=== PATIENT | male | born 1965 | race American Indian/Alaskan Native ===

== ENCOUNTER 2017-06-11 11:26 | Emergency (ER) | payer OTHER ==
[2017-06-11 11:26] VITALS: BMI 26.4
[2017-06-11 12:12] VITALS: O2SAT 98
[2017-06-11 12:13] LABS: BASO # 0.03 K/mm3 (0.0-2.0); BASO % 0.4 % (0.0-3.0); EOS # 0.1 (0.0-0.7); EOS % 1.2 % (1.5-5.0); GRAN # 6.06 (1.4-6.5); GRAN % 75.6 % (50.0-68.0); LYMPH # 1.2 (1.2-3.4); LYMPH % 14.9 % (22.0-35.0); MEAN CELL VOLUME 87.9 fl (80.0-105.0); MEAN CORPUSCULAR HEMOGLOBIN 27.9 pg (25.0-35.0); MEAN CORPUSCULAR HGB CONC 31.8 g/dl (31.0-37.0); MONO # 0.6 (0.1-0.6); MONO % 7.9 % (1.0-6.0); RED CELL DISTRIBUTION WIDTH 14.2 % (11.5-14.5)
--- NOTE | 2017-06-11 12:21 | ED PDOC ---
Arrival/HPI - General Chief Complaint: Abnormal Labs Time Seen by Provider: 06/11/17 11:48 Historian: Patient - History of Present Illness Narrative History of Present Illness (Text): 06/11/17 12:17 A 52 year old male, whose past medical history includes diabetes and renal disease, presents to the emergency department after receiving a call from his PMD advising him to come into the emergency department for low blood levels. The patient states that he has been feeling short of breath and lightheaded. The patient denies fevers, chills, chest pain, cough, abdominal pain, nausea, vomiting, diarrhea, back pain, neck pain, urinary/bowel changes, or any other complaint. PMD: Dr. Young Robotype Operator: Dr. Garza Time/Duration: Other (Today) Symptom Onset: Sudden Symptom Course: Unchanged Activities at Onset: Rest, Light Context: Home Past Medical History - Infectious Disease Hx of Infectious Diseases: None - Cardiac Hx Hypertension: Yes - Pulmonary Hx Respiratory Disorders: No Hx Asthma: No Hx Bronchitis: No Hx Chronic Obstructive Pulmonary Disease (COPD): No Hx Emphysema: No Hx Pneumonia: No Hx Respiratory Aspiration: No Hx Respiratory Tract Infection: No Hx Sleep Apnea: No Hx Tuberculosis: No - Neurological Hx Neurological Disorder: No Hx Alzheimer's Disease: No HX Cerebrovascular Accident: No Hx Dementia: No Hx Dizziness: No Hx Meningitis: No Hx Migraine: No Hx Parkinson's Disease: No Hx Seizures: No Hx Transient Ischemic Attacks (TIA): No - HEENT Hx HEENT Disorder: No Hx Blind: No Hx Cataracts: No Hx Deafness: No Hx Difficulty Chewing: No Hx Epistaxis: No Hx Glaucoma: No Hx Macular Degeneration: No - Renal Hx Renal Disorder: No Hx Dialysis: No Hx Kidney Stones: No Hx Neurogenic Bladder: No Hx Pyelonephritis: No Hx Renal Cancer: No Hx Renal Failure: No - Endocrine/Metabolic Hx Diabetes Mellitus Type 1: Yes - Hematological/Oncological Hx Blood Disorders: No Hx AIDS: No Hx Anemia: No Hx Cancer: No Hx Chemotherapy: No Hx Cirrhosis: No Hx Hemophilia: No Hx Hepatitis A: No Hx Hepatitis B: No Hx Hepatitis C: No Hx Metastasis: No Hx Shingles: No Hx Sickle Cell Disease: No Hx Unexplained Bleeding: No - Integumentary Hx Dermatological Disorder: No Hx Basal Cell Carcinoma: No Hx Eczema: No Hx Melanoma: No Hx Psoriasis: No Hx Squamous Cell Carcinoma: No - Musculoskeletal/Rheumatological Hx Musculoskeletal Disorders: No Hx Arthritis: No Hx Back Pain: No Hx Degenerative Joint Disease: No Hx Falls: No Hx Fractures: No Hx Gout: No Hx Herniated Disk: No Hx Myasthenia Gravis: No Hx Osteoarthritis: No Hx Osteomyelitis: No Hx Osteoporosis: No Hx Rhabdomyolysis: No Hx Spinal Stenosis: No Hx Unsteady Gait: No - Gastrointestinal Hx Gastrointestinal Disorders: No Hx Colostomy: No Hx Crohn's Disease: No Hx Diverticulitis: No Hx Gall Bladder Disease: No Hx Gastroesophageal Reflux: No Hx Gastrointestinal Ulcer: No Hx Ileostomy: No Hx Liver Failure: No Hx Pancreatitis: No HX Swallowing Problems: No - Genitourinary/Gynecological Hx Genitourinary Disorders: No Hx Hematuria: No Hx Incontinence: No Hx Prostate Problems: No Hx Sexually Transmitted Diseases: No Hx Urinary Tract Infection: No - Psychiatric Hx Substance Use: No - Surgical History Hx Cardiac Catheterization: No Hx Coronary Stent: No Family/Social History Family/Social History: No Known Family HX Smoking Status: Never Smoked Hx Alcohol Use: No Hx Substance Use: No Allergies/Home Meds Allergies/Adverse Reactions: Allergies No Known Allergies Allergy (Verified 05/29/17 03:19) Review of Systems - Physician Review All systems were reviewed & negative as marked: Yes - Review of Systems Constitutional: absent: Fevers Gastrointestinal: absent: Hematochezia Physical Exam - Physical Exam Narrative Physical Exam (Text): 06/11/17 12:24 Constitutional: No acute distress. Head: Normocephalic. Atraumatic. Eyes: PERRL. ENT: Moist mucous membranes. Neck: Supple. Cardiovascular: Regular rate. Chest: No tenderness. Respiratory: Clear to auscultation bilaterally. GI: Soft. Nontender. Nondistended. Back: No CVA tenderness. Musculoskeletal: No tenderness or swelling of extremities. Skin: No rash. Neurologic: Alert, no focal deficit. Vital Signs Reviewed: Yes Vital Signs Temp Pulse Resp BP Pulse Ox 06/11/17 14:43 98.4 F 87 17 155/77 H 06/11/17 14:28 98.5 F 76 18 147/71 06/11/17 13:05 69 18 122/68 98 06/11/17 12:12 98.4 F 75 18 124/71 98 06/11/17 11:38 98.8 F 80 16 124/71 100 Temperature: Afebrile Blood Pressure: Normal Pulse: Regular Respiratory Rate: Normal Appearance: Positive for: Well-Appearing, Non-Toxic, Comfortable Pain Distress: None Mental Status: Positive for: Alert and Oriented X 3 Finger Stick Blood Glucose: 159 Medical Decision Making ED Course and Treatment: 06/11/17 12:24 Impression: A 52 year old male presents to the emergency department after being advised by PMD for low blood levels. Plan: -- EKG -- Labs -- Reassess and disposition Progress Notes: 06/11/17 12:28: Patient consented for blood transfusion. EKG: Ordered, reviewed, and independently interpreted the EKG. Rate : 78 BPM Rhythm : NSR Interpretation : No ST-T wave changes. 06/11/17 15:28 Dr. Young via phone states patient only requires blood transfusion and he will work patient up further as outpatient. Dr. Garza called, agrees with plan. Blood transfusion 2 units in ED, then discharge. - Lab Interpretations Lab Results: 06/11/17 12:00 06/11/17 12:00 Lab Results 06/11/17 15:21: POC Glucose (mg/dL) 139 H 06/11/17 12:48: Blood Type Confirm O POSITIVE 06/11/17 12:36: Blood Type O POSITIVE, Antibody Screen Negative, Crossmatch See Detail, BBK History Checked No verified bt 06/11/17 12:00: Sodium 140, Potassium 4.6, Chloride 104, Carbon Dioxide 24, Anion Gap 17, BUN 42 H, Creatinine 4.4 H, Est GFR ( Amer) 17, Est GFR ( Non-Af Amer) 14, Random Glucose 174 H, Calcium 9.7, Total Bilirubin 0.7, AST 25 , ALT 32, Alkaline Phosphatase 61, Total Protein 7.2, Albumin 4.1, Globulin 3.1 , Albumin/Globulin Ratio 1.3 06/11/17 12:00: WBC 8.0, RBC 2.65 L, Hgb 7.4 L, Hct 23.3 L, MCV 87.9 D, MCH 27.9, MCHC 31.8, RDW 14.2, Plt Count 542 H, MPV 10.0, Gran % 75.6 H, Lymph % ( Auto) 14.9 L, Haskell % (Auto) 7.9 H, Eos % (Auto) 1.2 L, Baso % (Auto) 0.4, Gran # 6.06, Lymph # 1.2, Haskell # 0.6, Eos # 0.1, Baso # 0.03 I have reviewed the lab results: Yes - EKG Interpretation Interpreted by ED Physician: Yes Type: 12 lead EKG - Scribe Statement The provider has reviewed the documentation as recorded by the Scribe Sherrie Claire Provider Scribe Attestation: All medical record entries made by the Scribe were at my direction and personally dictated by me. I have reviewed the chart and agree that the record accurately reflects my personal performance of the history, physical exam, medical decision making, and the department course for this patient. I have also personally directed, reviewed, and agree with the discharge instructions and disposition. Disposition/Present on Arrival - Present on Arrival Any Indicators Present on Arrival: Yes History of DVT/PE: No History of Uncontrolled Diabetes: Yes Urinary Catheter: No History of Decub. Ulcer: No History Surgical Site Infection Following: None - Disposition Have Diagnosis and Disposition been Completed?: Yes Diagnosis: Anemia Disposition: HOME/ ROUTINE Disposition Time: 15:29 Patient Plan: Discharge Patient Problems: Current Active Problems Problem Status Onset Anemia Acute Condition: STABLE Discharge Instructions (ExitCare): Blood Transfusion Reactions (ED) Referrals: Tera Young MD [Primary Care Provider] - Follow up with primary Forms: [employer] (Honduran)
[2017-06-11 12:23] LABS: HEMATOCRIT 23.3 % (42.0-52.0)
[2017-06-11 12:30] LABS: ALB/GLOB RATIO 1.3 (1.1-1.8); BILIRUBIN,TOTAL 0.7 mg/dL (0.2-1.3); CALCIUM 9.7 mg/dL (8.4-10.5); TOTAL PROTEIN 7.2 g/dL (5.8-8.3)
[2017-06-11 13:49] LABS: POTASSIUM 4.6 mmol/L (3.6-5.0)
[2017-06-11 19:09] VITALS: BP 180/90; PULSE 86; RESP 17; TEMP 98.6
--- NOTE | 2017-06-11 23:02 | CARD ---
APPROVED REPORT EKG Measurement Heart [id number] <Conclusion> Normal sinus rhythm Nonspecific ST and T wave abnormality Abnormal ECG
== END 2017-06-11 19:21 | disposition home or self-care (01) ==
LOC: ED 11:26
DX: D64.9 Anemia, unspecified (principal); I10 Essential (primary) hypertension; E11.9 Type 2 diabetes mellitus without complications
CPT/HCPCS: 36430; 80053; 82948; 85025; 86850; 86900; 86920; 93005; 99283; P9016

== ENCOUNTER 2017-07-01 22:39 | Inpatient (IN) | payer OTHER ==
--- NOTE | 2017-07-01 23:07 | ED PDOC ---
Arrival/HPI - General Chief Complaint: Syncope Time Seen by Provider: 07/01/17 22:49 Historian: Patient - History of Present Illness Narrative History of Present Illness (Text): 07/01/17 23:00 Emery Hoang is a 52 year old male, whose past medical history includes diabetes, hypertension, gastroparesis, anemia, and renal insufficiency, who presents to the emergency department complaining of generalized malaise and weakness with associated few episodes vomiting over the past couple of days. According to family, patient experienced 3-4 syncopal episodes. Patient denies any head trauma, neck pain, back pain, chest pain, shortness of breath, abdominal pain, fever, chills, or any other complaints at this time. Time/Duration: < week Symptom Onset: Gradual Symptom Course: Unchanged Severity Level: Mild Activities at Onset: Light Context: Home Past Medical History - Provider Review Nursing Documentation Reviewed: Yes - Infectious Disease Hx of Infectious Diseases: None - Cardiac Hx Hypertension: Yes - Pulmonary Hx Respiratory Disorders: No Hx Asthma: No Hx Bronchitis: No Hx Chronic Obstructive Pulmonary Disease (COPD): No Hx Emphysema: No Hx Pneumonia: No Hx Respiratory Aspiration: No Hx Respiratory Tract Infection: No Hx Sleep Apnea: No Hx Tuberculosis: No - Neurological Hx Neurological Disorder: No Hx Alzheimer's Disease: No HX Cerebrovascular Accident: No Hx Dementia: No Hx Dizziness: No Hx Meningitis: No Hx Migraine: No Hx Parkinson's Disease: No Hx Seizures: No Hx Transient Ischemic Attacks (TIA): No - HEENT Hx HEENT Disorder: No Hx Blind: No Hx Cataracts: No Hx Deafness: No Hx Difficulty Chewing: No Hx Epistaxis: No Hx Glaucoma: No Hx Macular Degeneration: No - Renal Hx Renal Disorder: Yes Hx Dialysis: No Hx Kidney Stones: No Hx Neurogenic Bladder: No Hx Pyelonephritis: No Hx Renal Cancer: No Hx Renal Failure: No - Endocrine/Metabolic Hx Diabetes Mellitus Type 2: Yes - Hematological/Oncological Hx Blood Disorders: No Hx AIDS: No Hx Anemia: No Hx Cancer: No Hx Chemotherapy: No Hx Cirrhosis: No Hx Hemophilia: No Hx Hepatitis A: No Hx Hepatitis B: No Hx Hepatitis C: No Hx Metastasis: No Hx Shingles: No Hx Sickle Cell Disease: No Hx Unexplained Bleeding: No - Integumentary Hx Dermatological Disorder: No Hx Basal Cell Carcinoma: No Hx Eczema: No Hx Melanoma: No Hx Psoriasis: No Hx Squamous Cell Carcinoma: No - Musculoskeletal/Rheumatological Hx Musculoskeletal Disorders: No Hx Arthritis: No Hx Back Pain: No Hx Degenerative Joint Disease: No Hx Falls: No Hx Fractures: No Hx Gout: No Hx Herniated Disk: No Hx Myasthenia Gravis: No Hx Osteoarthritis: No Hx Osteomyelitis: No Hx Osteoporosis: No Hx Rhabdomyolysis: No Hx Spinal Stenosis: No Hx Unsteady Gait: No - Gastrointestinal Hx Gastrointestinal Disorders: No Hx Colostomy: No Hx Crohn's Disease: No Hx Diverticulitis: No Hx Gall Bladder Disease: No Hx Gastroesophageal Reflux: No Hx Gastrointestinal Ulcer: No Hx Ileostomy: No Hx Liver Failure: No Hx Pancreatitis: No HX Swallowing Problems: No - Genitourinary/Gynecological Hx Genitourinary Disorders: No Hx Hematuria: No Hx Incontinence: No Hx Prostate Problems: No Hx Sexually Transmitted Diseases: No Hx Urinary Tract Infection: No - Psychiatric Hx Substance Use: No - Surgical History Hx Cardiac Catheterization: No Hx Coronary Stent: No Family/Social History - Physician Review Nursing Documentation Reviewed: Yes Family/Social History: No Known Family HX Smoking Status: Never Smoked Hx Alcohol Use: No Hx Substance Use: No Allergies/Home Meds Allergies/Adverse Reactions: Allergies No Known Allergies Allergy (Verified 07/01/17 22:54) Review of Systems - Review of Systems Constitutional: Other (generalized malaise and weakness) Eyes: absent: Vision Changes ENT: absent: Hearing Changes Respiratory: absent: SOB, Cough Cardiovascular: Syncope. absent: Chest Pain Gastrointestinal: Vomiting. absent: Abdominal Pain Genitourinary Male: absent: Dysuria, Frequency Musculoskeletal: absent: Arthralgias, Back Pain Skin: absent: Rash, Pruritis Neurological: absent: Headache, Dizziness Endocrine: absent: Diaphoresis Hemo/Lymphatic: absent: Adenopathy Psychiatric: absent: Anxiety, Depression Physical Exam Vital Signs Reviewed: Yes Vital Signs Temp Pulse Resp BP Pulse Ox 07/02/17 01:09 87 18 133/66 100 07/01/17 22:49 98.1 F 78 20 133/63 100 Temperature: Afebrile Blood Pressure: Normal Pulse: Regular Respiratory Rate: Normal Appearance: Positive for: Well-Appearing, Non-Toxic, Comfortable Pain Distress: None Mental Status: Positive for: Alert and Oriented X 3 - Systems Exam Head: Present: Atraumatic, Normocephalic Pupils: Present: PERRL Extroacular Muscles: Present: EOMI Conjunctiva: Present: Normal Mouth: Present: Moist Mucous Membranes Neck: Present: Normal Range of Motion Respiratory/Chest: Present: Clear to Auscultation, Good Air Exchange. No: Respiratory Distress, Accessory Muscle Use Cardiovascular: Present: Regular Rate and Rhythm, Normal S1, S2. No: Murmurs Abdomen: Present: Normal Bowel Sounds. No: Tenderness, Distention, Peritoneal Signs Back: Present: Normal Inspection Upper Extremity: Present: Normal Inspection. No: Cyanosis, Edema Lower Extremity: Present: Normal Inspection. No: Edema Neurological: Present: GCS=15, CN II-XII Intact, Speech Normal Skin: Present: Warm, Dry, Normal Color. No: Rashes Psychiatric: Present: Alert, Oriented x 3, Normal Insight, Normal Concentration Medical Decision Making ED Course and Treatment: 07/01/17 23:09 Impression: 52 year old male complaining of generalized malaise and weakness with associated episodes of vomiting and reported syncopal episodes by family over the past couple of days. Differential Diagnosis included but are not limited to: Sever anemia secondary to chronic disease, secondary to GI bleed vs. Vasovagal syncope Plan: -- EKG -- Chest X-ray -- Head CT without contrast -- Type and Screen -- Labs -- Pepcid, Zofran, and IV fluids -- Reassess and disposition Prior Visits: Notes and results from previous visits were reviewed. Patient was last seen on 06/11/17 after receiving a call from his PMD advising him to come into the emergency department for low blood levels. Patient was discharged home. Progress Notes: EKG: Ordered, reviewed, and independently interpreted the EKG. Rate: 82 BPM Rhythm: NSR Interpretation: No ST-segment elevations or depressions, no T-wave inversions, normal intervals. Comparison: No previous EKG for comparison. 07/02/17 00:39 Reviewed radiology, chest x-ray shows no acute processes. 07/02/17 00:50 Case discussed with chief medical technologist and Dr. Moore, who is aware and accepts patient to hospitalist service. 07/02/17 01:00 CT Head Without Intravenous Contrast: Creator : Kate Peraza MD FINDINGS: Brain: No hemorrhage. No significant white matter disease. No edema. Ventricles: No hydrocephalus. Bones: Skull is intact. Sinuses: Large mucus cyst versus polyp in the right maxillary sinus. Mastoid air cells: No mastoid effusion. Motion artifact limits evaluation. IMPRESSION: No CT evidence of acute intracranial abnormality. Motion artifact limits evaluation. - Lab Interpretations Lab Results: 07/01/17 23:11 07/01/17 23:11 Lab Results 07/01/17 23:11: Blood Type O POSITIVE, Antibody Screen Negative, Crossmatch See Detail, BBK History Checked Patient has bt 07/01/17 23:11: WBC 8.3, RBC 1.38 L, Hgb 4.0 L* D, Hct 12.6 L*, MCV 91.3 D, MCH 29.0, MCHC 31.7, RDW 14.2, Plt Count 294, MPV 10.1 07/01/17 23:11: Sodium 140, Potassium 4.7, Chloride 108 H, Carbon Dioxide 19 L, Anion Gap 17, BUN 93 H, Creatinine 4.0 H, Est GFR ( Amer) 19, Est GFR ( Non-Af Amer) 16, Random Glucose 218 H, Calcium 9.4, Total Bilirubin 0.2, AST 22 , ALT 25, Alkaline Phosphatase 34 L D, Lactate Dehydrogenase 255 L, Total Creatine Kinase 44, Troponin I 0.03, Total Protein 5.5 L, Albumin 3.2, Globulin 2.3, Albumin/Globulin Ratio 1.4 07/01/17 23:11: PT 12.1, INR 1.11 H, APTT 27.9 I have reviewed the lab results: Yes - RAD Interpretation Radiology Orders: 07/01/17 23:10 HEAD W/O CONTRAST [CT] Stat CHEST PORTABLE [RAD] Stat - Medication Orders Current Medication Orders: Fenofibrate (Tricor) 145 mg PO DAILY [facility] Hydralazine HCl (Apresoline) 10 mg IVP Q6 PRN PRN Reason: Systolic Blood Pressure Sodium Chloride (Sodium Chloride 0.9%) 1,000 mls @ 75 mls/hr IV .[id number] [facility] Insulin Human Lispro (Humalog High) 0 units SC ACHS PAM PRN Reason: Protocol Ondansetron HCl (Zofran Inj) 4 mg IVP Q6H PRN PRN Reason: Nausea/Vomiting Pantoprazole Sodium (Protonix Inj) 40 mg IVP Q12 PAM Discontinued Medications Famotidine (Pepcid) 20 mg IVP STAT STA Stop: 07/01/17 23:11 Last Admin: 07/01/17 23:30 Dose: 20 mg IVP Administration Document 07/01/17 23:30 GMD (Rec: 07/01/17 23:30 GMD [id number]) Charges for Administration # of IVP Administrations 1 Sodium Chloride (Sodium Chloride 0.9%) 1,000 mls @ 999 mls/hr IV .Q1H1M STA Stop: 07/02/17 00:10 Last Admin: 07/01/17 23:30 Dose: 999 mls/hr eMAR Start Stop Document 07/01/17 23:30 GMD (Rec: 07/01/17 23:31 GMD [id number]) Intravenous Solution Start Date 07/01/17 Start Time 23:30 End Date 07/02/17 End time 00:31 Total Infusion Time 61 Ondansetron HCl (Zofran Inj) 4 mg IVP ONCE ONE Stop: 07/01/17 23:11 Last Admin: 07/01/17 23:30 Dose: 4 mg IVP Administration Document 07/01/17 23:30 GMD (Rec: 07/01/17 23:30 GMD [facility] [id number]) Charges for Administration # of IVP Administrations 1 - Scribe Statement The provider has reviewed the documentation as recorded by the Scribraul Ashford All medical record entries made by the Scribe were at my direction and personally dictated by me. I have reviewed the chart and agree that the record accurately reflects my personal performance of the history, physical exam, medical decision making, and the department course for this patient. I have also personally directed, reviewed, and agree with the discharge instructions and disposition. Disposition/Present on Arrival - Present on Arrival Any Indicators Present on Arrival: No History of DVT/PE: No History of Uncontrolled Diabetes: Yes Urinary Catheter: No History of Decub. Ulcer: No History Surgical Site Infection Following: None - Disposition Have Diagnosis and Disposition been Completed?: Yes Diagnosis: Renal insufficiency, Severe anemia, Syncope Disposition: HOSPITALIZED Disposition Time: 00:53 Patient Plan: Admission Condition: STABLE
[2017-07-01] MEDS ORDERED: Sodium Chloride 0.9% 1,000 ML IV STA (23:10)
[2017-07-01 23:42] LABS: INR 1.11 (0.93-1.08); PARTIAL THROMBOPLASTIN TIME 27.9 Seconds (25.1-36.5)
[2017-07-01 23:45] LABS: MEAN CORPUSCULAR HGB CONC 31.7 g/dl (31.0-37.0); MEAN PLATELET VOLUME 10.1 fl (7.0-11.0); RED CELL DISTRIBUTION WIDTH 14.2 % (11.5-14.5); WHITE BLOOD COUNT 8.3 10^3/ul (4.5-11.0)
[2017-07-01 23:50] LABS: TROPONIN I 0.03 ng/mL
[2017-07-01 23:59] LABS: HEMATOCRIT 12.6 % (42.0-52.0)
[2017-07-02] LABS: MEAN CELL VOLUME 91.3 fl (80.0-105.0)
[2017-07-02 00:30] LABS: ALB/GLOB RATIO 1.4 (1.1-1.8); BILIRUBIN,TOTAL 0.2 mg/dL (0.2-1.3); CALCIUM 9.4 mg/dL (8.4-10.5); POTASSIUM 4.7 mmol/L (3.6-5.0); TOTAL PROTEIN 5.5 g/dL (5.8-8.3)
--- NOTE | 2017-07-02 00:47 | CT ---
EXAM: CT Head Without Intravenous Contrast CLINICAL HISTORY: 52 years old, male; Signs and symptoms; Syncope and collapse TECHNIQUE: Axial computed tomography images of the head/brain without intravenous contrast. All CT scans at this facility use one or more dose reduction techniques, viz.: automated exposure control; ma/kV adjustment per patient size (including targeted exams where dose is matched to indication; i.e. head); or iterative reconstruction technique. COMPARISON: No relevant prior studies available. FINDINGS: Brain: No hemorrhage. No significant white matter disease. No edema. Ventricles: No hydrocephalus. Bones: Skull is intact. Sinuses: Large mucus cyst versus polyp in the right maxillary sinus. Mastoid air cells: No mastoid effusion. Motion artifact limits evaluation. IMPRESSION: No CT evidence of acute intracranial abnormality. Motion artifact limits evaluation.
--- NOTE | 2017-07-02 00:56 | CP.PCM.HP ---
<Ra Santiago - Last Filed: 07/02/17 01:37> History of Present Illness - History of Present Illness History of Present Illness: CC: Generalized weakness and syncope Subjective: HPI: Patient is a 52 year old male with a past medical history includes diabetes, hypertension, gastroparesis, anemia, and renal insufficiency, who presents to the emergency department complaining of generalized malaise and weakness which began today without any provoking event. Patient admits to with associated dark red emesis x 3, last episode occurring at 9pm. According to family, patient experienced 3-4 syncopal episodes where the patient recovered spontaneously without any acute intervention. Patient denies any head trauma. Patient denies intractable headache, fever, chills, blurry vision, ringing in the ears, chest pain, shortness of breath, abdominal pain, diarrhea, constipation, and urinary symptoms. ROS: 12 point review of systems negative except as indicated in HPI PMD: Dr. Des Young Past medical history: diabetes, hypertension, gastroparesis, anemia, and renal insufficiency Past surgical history: Denies Allergies: NKDA Family hx- mother hypertension Medications:please see MAR Social history: Occasional drinker smoker (less than 1 a week). Occasional marijuana user. Denies any other illicit drug use. Physical Examination: - Constitutional Appears: Non-toxic, No Acute Distress - Head Exam Head Exam: atraumatic, normocephalic - Eye Exam Eye Exam: Normal appearance, pale conjunctiva, PERRL. absent: Scleral icterus - ENT Exam ENT Exam: Mucous Membranes Moist - Neck Exam Neck exam: Normal Inspection - Respiratory Exam Respiratory Exam: Normal Breathing Pattern - Cardiovascular Exam Cardiovascular Exam: +S1, +S2. absent: Gallop, JVD - GI/Abdominal Exam GI & Abdominal Exam: Normal Bowel Sounds, absent: Distended, Guarding, Pulsatile Mass, Rebound, Rigid - Extremities Exam Extremities exam: Negative for: calf tenderness - Neurological Exam Neurological exam: Patient is awake, alert, responds to verbal stimuli, answers questions appropriately, follows commands, and moves extremities past midline - Psychiatric Exam Psychiatric exam: Normal Affect, Normal Mood - Skin Skin Exam: warm and dry Assessment and Plan: Patient is a 52 year old male, whose past medical history includes diabetes, hypertension, gastroparesis, anemia, and renal insufficiency, who presents to the emergency department complaining of generalized malaise and weakness. Syncope; Generalized Weakness - likely secondary to anemia - Head CT reviewed and appreciated- No CT evidence of acute intracranial abnormality - high risk fall precautions Anemia - Hgb reviewed, trended, and appreciated - monitor closely via CBC - very likely due to GI bleed GI Bleed - NPO - 2 large bore PIV - protonix 40 IV q12 - type and screen- 4 units pRBCs as per ED - GI consulted- appreciate recommendations Nausea/Vomitting - NPO - zofran - IVF NS @ 75 after 4 units pRBC are transfused Renal Insuffiency - creatinine and Bun reviewed, trended, and appreciated - avoid nephrotoxins - continue IVF NS @ 75 after 4 units pRBC are transfused - consider nephrology consult pending patients clinical course Hx of Htn - hold home medications for now - hydralazine 5mg IV q6 prn SBP > 180, holding parameters- do not administer if HR is > 100 bpm Hx of Diabetes - hold home diabetic medications - fingersticks ACHS - insulin sliding scale- lispro medium - resume diet as carb consistent Hx of Hyperlipidemia - continue home fenofibrate Prophylaxis - DVT ppx- scds - GI ppx- protonix Patient case discussed with and plan approved by attending physician. Present on Admission - Present on Admission Any Indicators Present on Admission: Yes Past Patient History - Infectious Disease Hx of Infectious Diseases: None - Past Social History Smoking Status: Never Smoked - CARDIAC Hx Hypertension: Yes - PULMONARY Hx Respiratory Disorders: No Hx Asthma: No Hx Bronchitis: No Hx Chronic Obstructive Pulmonary Disease (COPD): No Hx Emphysema: No Hx Pneumonia: No Hx Respiratory Aspiration: No Hx Respiratory Tract Infection: No Hx Sleep Apnea: No Hx Tuberculosis: No - NEUROLOGICAL Hx Neurological Disorder: No Hx Alzheimer's Disease: No HX Cerebrovascular Accident: No Hx Dementia: No Hx Dizziness: No Hx Meningitis: No Hx Migraine: No Hx Parkinson's Disease: No Hx Seizures: No Hx Transient Ischemic Attacks (TIA): No - HEENT Hx HEENT Problems: No Hx Blind: No Hx Cataracts: No Hx Deafness: No Hx Difficulty Chewing: No Hx Epistaxis: No Hx Glaucoma: No Hx Macular Degeneration: No - RENAL Hx Chronic Kidney Disease: Yes Hx Dialysis: No Hx Kidney Stones: No Hx Neurogenic Bladder: No Hx Pyelonephritis: No Hx Renal (Kidney) Cancer: No Hx Renal Failure: No - ENDOCRINE/METABOLIC Hx Diabetes Mellitus Type 2: Yes - HEMATOLOGICAL/ONCOLOGICAL Hx Blood Disorders: No Hx AIDS: No Hx Anemia: No Hx Cancer: No Hx Chemotherapy: No Hx Cirrhosis: No Hx Hemophilia: No Hx Hepatitis A: No Hx Hepatitis B: No Hx Hepatitis C: No Hx Metastesis: No Hx Shingles: No Hx Sickle Cell Disease: No Hx Unexplained Bleeding: No - INTEGUMENTARY Hx Dermatological Problems: No Hx Basil Cell: No Hx Eczema: No Hx Melanoma: No Hx Psoriasis: No Hx Squamous Cell: No - MUSCULOSKELETAL/RHEUMATOLOGICAL Hx Musculoskeletal Disorders: No Hx Arthritis: No Hx Back Pain: No Hx Degenerative Joint Disease: No Hx Falls: No Hx Fractures: No Hx Gout: No Hx Herniated Disk: No Hx Myasthenia Gravis: No Hx Osteoarthritis: No Hx Osteomyelitis: No Hx Osteoporosis: No Hx Rhabdomyolysis: No Hx Spinal Stenosis: No Hx Unsteady Gait: No - GASTROINTESTINAL Hx Gastrointestinal Disorders: No Hx Colostomy: No Hx Crohn's Disease: No Hx Diverticulitis: No Hx Gall Bladder Disease: No Hx Gastroesophageal Reflux: No Hx Ileostomy: No Hx Liver Failure: No Hx Pancreatitis: No HX Swallowing Problems: No - GENITOURINARY/GYNECOLOGICAL Hx Genitourinary Disorders: No Hx Hematuria: No Hx Incontinence: No Hx Prostate Problems: No Hx Sexually Transmitted Disorders: No Hx Urinary Tract Infection: No - PSYCHIATRIC Hx Substance Use: No - SURGICAL HISTORY Hx Cardiac Catheterization: No Hx Coronary Stent: No Meds Allergies/Adverse Reactions: Allergies Allergy/AdvReac Type Severity Reaction Status Date / Time No Known Allergies Allergy Verified 07/01/17 22:54 Results - Vital Signs Recent Vital Signs: Last Vital Signs Temp 98.1 F 07/01/17 22:49 Pulse 78 07/01/17 22:49 Resp 20 07/01/17 22:49 BP 133/63 07/01/17 22:49 Pulse Ox 100 07/01/17 22:49 - Labs Result Diagrams: 07/01/17 23:11 07/01/17 23:11 Labs: Laboratory Results - last 24 hr 07/01/17 07/01/17 07/01/17 23:11 23:11 23:11 WBC 8.3 RBC 1.38 L Hgb 4.0 L* D Hct 12.6 L* MCV 91.3 D MCH 29.0 MCHC 31.7 RDW 14.2 Plt Count 294 MPV 10.1 PT 12.1 INR 1.11 H APTT 27.9 Sodium 140 Potassium 4.7 Chloride 108 H Carbon Dioxide 19 L Anion Gap 17 BUN 93 H Creatinine 4.0 H Est GFR ( Amer) 19 Est GFR (Non-Af Amer) 16 Random Glucose 218 H Calcium 9.4 Total Bilirubin 0.2 AST 22 ALT 25 Alkaline Phosphatase 34 L D Lactate Dehydrogenase 255 L Total Creatine Kinase 44 Troponin I 0.03 Total Protein 5.5 L Albumin 3.2 Globulin 2.3 Albumin/Globulin Ratio 1.4 Blood Type Antibody Screen Crossmatch BBK History Checked 07/01/17 23:11 WBC RBC Hgb Hct MCV MCH MCHC RDW Plt Count MPV PT INR APTT Sodium Potassium Chloride Carbon Dioxide Anion Gap BUN Creatinine Est GFR ( Amer) Est GFR (Non-Af Amer) Random Glucose Calcium Total Bilirubin AST ALT Alkaline Phosphatase Lactate Dehydrogenase Total Creatine Kinase Troponin I Total Protein Albumin Globulin Albumin/Globulin Ratio Blood Type O POSITIVE Antibody Screen Negative Crossmatch See Detail BBK History Checked Patient has bt <Francie Moore - Last Filed: 07/02/17 06:33> Results - Vital Signs Recent Vital Signs: Last Vital Signs Temp 99.4 F 07/02/17 06:32 Pulse 90 07/02/17 06:32 Resp 19 07/02/17 06:32 BP 131/70 07/02/17 06:32 Pulse Ox 100 07/02/17 05:01 - Labs Result Diagrams: 07/02/17 05:50 07/01/17 23:11 Labs: Laboratory Results - last 24 hr 07/02/17 05:50 Hgb 4.8 L* Hct 14.8 L* Attending/Attestation - Attestation I have personally seen and examined this patient.: Yes I have fully participated in the care of the patient.: Yes I have reviewed all pertinent clinical information: Yes
[2017-07-02] MEDS: Sodium Chloride 0.9% 1,000 ML IV SCH ×2 (02:19→16:46)
[2017-07-02 06:12] LABS: HEMATOCRIT 14.8 % (42.0-52.0)
[2017-07-02] MEDS: Insulin Lispro (HUMAlog) HIGH Coverage SC SCH ×4 (08:07→21:53)
--- NOTE | 2017-07-02 09:00 | RAD ---
HISTORY: Syncope. COMPARISON: 05/29/2017 FINDINGS: LUNGS: No active pulmonary disease. PLEURA: No significant pleural effusion identified, no pneumothorax apparent. CARDIOVASCULAR: No radiographic findings to suggest acute or significant cardiovascular disease. OSSEOUS STRUCTURES: No significant abnormalities. VISUALIZED UPPER ABDOMEN: Normal. OTHER FINDINGS: None. IMPRESSION: No active disease. No significant interval change compared to the prior examination(s).
--- NOTE | 2017-07-02 13:03 | CP.PCM.CON ---
<Kelly Schaffer - Last Filed: 07/02/17 13:08> History of Present Illness - History of Present Illness History of Present Illness: S&E at bedside earlier today, chart reviewed. Request for GI consult is for GI bleeding. HPI: This is a 52 year old male with a PMH of DM, Anemia, HTN, gastroparesis, and PUD. Came to the ER with complaints of nausea and hematemesis , few episodes ,have generalized weakness. No abdominal pain, fever or chills. Does c/o weight loss of 10-15 pounds in 3 weeks, decrease appetite. No SOB or chest pain. On admission found to have hemaglobin of 4.0 s/p 2 units and this am 4.8, currently receiving 3 rd unit of PRBC and to have total of 4 units of PRBC, Patient denies noticing melena or BRBPR per rectum but found to be guiac positive in the ER. Last known EGD was 2011 found to have angulated ulcer with ( +) H pylori , patient was due to have EGD/colon 08/2015 but patient endorsed that he missed his procedure. Denies NSAID use, acid reflux, does not take any antacid. His last colonoscopy was 2011 it was flexsigmoidoscopy secondary to poor prep. CT scan of head negative. PMH: PUD, gastroparesis,Anemia,Renal insufficiency, DM, HTN PSH: denies cardiac/abdominal sx Allergies: NKDA MEDS: reviewed as per MAR Family HX: mother HTN Social HX: social drinker, admits that can be excessive, h/o marijuana use, no more, ROS: systems reviewed with positive findings, see HPI Past Patient History - Infectious Disease Hx of Infectious Diseases: None - Past Social History Smoking Status: Never Smoked - CARDIAC Hx Hypertension: Yes - PULMONARY Hx Respiratory Disorders: No Hx Asthma: No Hx Bronchitis: No Hx Chronic Obstructive Pulmonary Disease (COPD): No Hx Emphysema: No Hx Pneumonia: No Hx Respiratory Aspiration: No Hx Respiratory Tract Infection: No Hx Sleep Apnea: No Hx Tuberculosis: No - NEUROLOGICAL Hx Neurological Disorder: No Hx Alzheimer's Disease: No HX Cerebrovascular Accident: No Hx Dementia: No Hx Dizziness: No Hx Meningitis: No Hx Migraine: No Hx Parkinson's Disease: No Hx Seizures: No Hx Transient Ischemic Attacks (TIA): No - HEENT Hx HEENT Problems: No Hx Blind: No Hx Cataracts: No Hx Deafness: No Hx Difficulty Chewing: No Hx Epistaxis: No Hx Glaucoma: No Hx Macular Degeneration: No - RENAL Hx Chronic Kidney Disease: Yes Hx Dialysis: No Hx Kidney Stones: No Hx Neurogenic Bladder: No Hx Pyelonephritis: No Hx Renal (Kidney) Cancer: No Hx Renal Failure: No - ENDOCRINE/METABOLIC Hx Diabetes Mellitus Type 2: Yes - HEMATOLOGICAL/ONCOLOGICAL Hx Blood Disorders: No Hx AIDS: No Hx Anemia: No Hx Cancer: No Hx Chemotherapy: No Hx Cirrhosis: No Hx Hemophilia: No Hx Hepatitis A: No Hx Hepatitis B: No Hx Hepatitis C: No Hx Metastesis: No Hx Shingles: No Hx Sickle Cell Disease: No Hx Unexplained Bleeding: No - INTEGUMENTARY Hx Dermatological Problems: No Hx Basil Cell: No Hx Eczema: No Hx Melanoma: No Hx Psoriasis: No Hx Squamous Cell: No - MUSCULOSKELETAL/RHEUMATOLOGICAL Hx Musculoskeletal Disorders: No Hx Arthritis: No Hx Back Pain: No Hx Degenerative Joint Disease: No Hx Falls: No Hx Fractures: No Hx Gout: No Hx Herniated Disk: No Hx Myasthenia Gravis: No Hx Osteoarthritis: No Hx Osteomyelitis: No Hx Osteoporosis: No Hx Rhabdomyolysis: No Hx Spinal Stenosis: No Hx Unsteady Gait: No - GASTROINTESTINAL Hx Gastrointestinal Disorders: No Hx Colostomy: No Hx Crohn's Disease: No Hx Diverticulitis: No Hx Gall Bladder Disease: No Hx Gastroesophageal Reflux: No Hx Ileostomy: No Hx Liver Failure: No Hx Pancreatitis: No HX Swallowing Problems: No - GENITOURINARY/GYNECOLOGICAL Hx Genitourinary Disorders: No Hx Hematuria: No Hx Incontinence: No Hx Prostate Problems: No Hx Sexually Transmitted Disorders: No Hx Urinary Tract Infection: No - PSYCHIATRIC Hx Substance Use: No - SURGICAL HISTORY Hx Cardiac Catheterization: No Hx Coronary Stent: No Meds Allergies/Adverse Reactions: Allergies Allergy/AdvReac Type Severity Reaction Status Date / Time No Known Allergies Allergy Verified 07/01/17 22:54 - Medications Medications: Current Medications Acetaminophen (Tylenol 325mg Tab) 650 mg PO Q4H PRN PRN Reason: Fever >100.4 F Fenofibrate (Tricor) 145 mg PO DAILY PAM Last Admin: 07/02/17 09:34 Dose: 145 mg Hydralazine HCl (Apresoline) 10 mg IVP Q6 PRN PRN Reason: Systolic Blood Pressure Sodium Chloride (Sodium Chloride 0.9%) 1,000 mls @ 75 mls/hr IV .[id number] REPLACED BY [facility] Last Admin: 07/02/17 02:19 Dose: Not Given Insulin Human Lispro (Humalog High) 0 units SC ACHS REPLACED BY [facility] PRN Reason: Protocol Last Admin: 07/02/17 11:28 Dose: Not Given Ondansetron HCl (Zofran Inj) 4 mg IVP Q6H PRN PRN Reason: Nausea/Vomiting Last Admin: 07/02/17 09:34 Dose: 4 mg Pantoprazole Sodium (Protonix Inj) 40 mg IVP Q12 REPLACED BY [facility] Last Admin: 07/02/17 09:33 Dose: 40 mg Physical Exam - Constitutional Appears: No Acute Distress - Head Exam Head Exam: NORMOCEPHALIC - Eye Exam Eye Exam: Normal appearance. absent: Scleral icterus - ENT Exam ENT Exam: Mucous Membranes Moist - Neck Exam Neck exam: Positive for: Normal Inspection - Respiratory Exam Respiratory Exam: NORMAL BREATHING PATTERN. absent: Respiratory Distress - Cardiovascular Exam Cardiovascular Exam: +S1, +S2 - GI/Abdominal Exam GI & Abdominal Exam: Normal Bowel Sounds, Soft. absent: Guarding, Organomegaly , Rebound, Tenderness - Extremities Exam Extremities exam: Positive for: pedal pulses present. Negative for: calf tenderness, pedal edema - Neurological Exam Neurological exam: Alert, CN II-XII Intact, Oriented x3 - Skin Skin Exam: Dry, Warm Results - Vital Signs Recent Vital Signs: Last Vital Signs Temp 98.2 F 07/02/17 10:48 Pulse 83 07/02/17 10:48 Resp 20 07/02/17 10:48 BP 133/74 07/02/17 10:48 Pulse Ox 100 07/02/17 05:01 - Labs Result Diagrams: 07/02/17 05:50 07/01/17 23:11 Labs: Laboratory Results - last 24 hr 07/02/17 05:50 Hgb 4.8 L* Hct 14.8 L* Assessment & Plan - Assessment and Plan (Free Text) Assessment: ASSESSMENT: Severe Anemia GI Bleed H/O PUD DM Gastroparesis HTN Renal insufficiency Weight loss PLAN: monitor h/H, transfusion in progress, to recieve total of 2U PRBC today, recheck cbc post transfusion continue PPI but will reduce to daily for renal insufficiency NPO, IVF monitor for overt GI bleed would benefit for endoscopy when optimal request for ct scan abdomen and pelvis with ONLY oral contrast no IV secondary to renal function Thank you for this consult and for allowing us to participate in your patient care, further recommendation based upon clinical course. Seen and discussed w/ Dr. Lucio. <Teresita Lucio V - Last Filed: 07/02/17 23:07> Meds - Medications Medications: Current Medications Acetaminophen (Tylenol 325mg Tab) 650 mg PO Q4H PRN PRN Reason: Fever >100.4 F Fenofibrate (Tricor) 145 mg PO DAILY REPLACED BY [facility] Last Admin: 07/02/17 09:34 Dose: 145 mg Hydralazine HCl (Apresoline) 10 mg IVP Q6 PRN PRN Reason: Systolic Blood Pressure Sodium Chloride (Sodium Chloride 0.9%) 1,000 mls @ 75 mls/hr IV .[id number] REPLACED BY [facility] Last Admin: 07/02/17 16:46 Dose: 75 mls/hr Insulin Human Lispro (Humalog High) 0 units SC ACHS PAM PRN Reason: Protocol Last Admin: 07/02/17 21:53 Dose: Not Given Ondansetron HCl (Zofran Inj) 4 mg IVP Q6H PRN PRN Reason: Nausea/Vomiting Last Admin: 07/02/17 09:34 Dose: 4 mg Pantoprazole Sodium (Protonix Inj) 40 mg IVP Q12 REPLACED BY [facility] Last Admin: 07/02/17 21:54 Dose: 40 mg Results - Vital Signs Recent Vital Signs: Last Vital Signs Temp 98.2 F 07/02/17 20:45 Pulse 72 07/02/17 22:00 Resp 20 07/02/17 20:45 BP 160/80 H 07/02/17 20:45 Pulse Ox 100 07/02/17 05:01 - Labs Result Diagrams: 07/02/17 19:40 07/01/17 23:11 Labs: Laboratory Results - last 24 hr 07/02/17 07/02/17 07/02/17 05:50 19:40 19:40 Hgb 4.8 L* Hct 14.8 L* Phosphorus 4.6 H Iron 179 TIBC 372 % Saturation 48 07/02/17 19:40 Hgb 7.8 L D Hct 23.1 L Phosphorus Iron TIBC % Saturation Attending/Attestation - Attestation I have personally seen and examined this patient.: Yes I have fully participated in the care of the patient.: Yes I have reviewed all pertinent clinical information: Yes Notes (Text): This is an addendum to GI progress report dictated by Kelly Schaffer APN.The patient was seen and examined earlier. Medical records, lab studies, imagings were reviewed. Last 24 hours events reviewed. Agreed with the above treatment plan as outlined in Kelly Schaffer APN's notes the with the addition of the following This 52-year-old patient history of gastric ulcer poorly complaintwith follow- up was admitted with severe anemia status post 4 units packed RBC transfusion. No active bleeding per rectum or melena. Patient wanted to sign out AMA discussed with the patient at length explained about the seriousness of his illness patient finally agreed to stay. We'll continue Protonix PPI Follow-up with the hemoglobin and hematocrit Follow-up with a CT scan Patient would benefit from the EGD and colonoscopy patient's was at bedside at the time of examination patient and family were fully aware of the importance of staying in the hospital to have the workup done in view of this multiple comorbidities and severe anemia. They fully understood my explanation 07/02/17 23:04
[2017-07-02] MEDS ORDERED: Barium Sulfate Susp 2.1% w/v, 2.0% w/w 450 mL Bottle PO ONE (13:13)
[2017-07-02 15:26] VITALS: BMI 25.0
--- NOTE | 2017-07-02 16:20 | CARD ---
APPROVED REPORT EKG Measurement Heart [id number] ID [id number] <Conclusion> Normal sinus rhythm Normal ECG
--- NOTE | 2017-07-02 19:00 | CT ---
PROCEDURE: CT scan abdomen pelvis dated 07/02/2017 HISTORY: Severe anemia. GI bleed and weight loss. COMPARISON: No prior study available for comparison TECHNIQUE: Contiguous helical/transaxial images of the abdomen and pelvis. Oral contrast was administered. No IV contrast given. Coronal and Sagittal reformats generated. Radiation dose: Total exam DLP = 586.698 mGy-cm. This CT exam was performed using one or more of the following dose reduction techniques: Automated exposure control, adjustment of the mA and/or kV according to patient size, and/or use of iterative reconstruction technique. FINDINGS: LOWER THORAX: No evidence of basilar infiltrate effusion or pneumothorax. There appears to be some minor chronic atelectasis and or scarring in the left lingular region on. Heart size is within range of normal however there is evidence to suggest anemia based on chamber appearance. Clinical correlation recommended. No significant pericardial effusion. Changes are seen within the LIVER: Liver is of borderline/mildly enlarged measuring nearly 19 cm in CC dimension. No obvious hepatic mass or collection identified on this noncontrast study. GALLBLADDER AND BILE DUCTS: Gallbladder is physiologically distended. No evidence intraluminal gallbladder calculi. PANCREAS: There are 2 rounded/elliptical shaped vague areas of low attenuation in the mid and posterior body of the pancreas (the proximal focus measuring approximately 14 mm trans and the more posteriorly located focus measuring approximately 11 mm trans) which could represent some volume averaging artifact however followup pancreatic protocol CT scan could be performed for further evaluation to exclude pancreatic masses. SPLEEN: Spleen exhibits normal size and attenuation pattern without mass collection or calcification. There is a small splenules seen adjacent to the anterior mid aspect of the main body of the spleen. ADRENALS: No adrenal lesions are identified. KIDNEYS AND URETERS: Kidneys that demonstrate relatively symmetric size. No evidence of nephrolithiasis or hydronephrosis. No obvious renal masses or collections seen on this noncontrast study. BLADDER: Urinary bladder is incompletely distended which in part accounts for thick-walled appearance. . Muscular hypertrophy presumably contributes. Other intrinsic wall lesion not excluded. REPRODUCTIVE: Prostate gland measures approximately 3.8 cm in transverse dimension. Prostatic calcifications present. Calcifications of the vas deferens noted. APPENDIX: The appendix appears unremarkable best seen on axial image number [id number]. BOWEL: Evaluation of the bowel is somewhat limited due to incomplete opacification. The stomach is incompletely distended which presumably accounts for thick-walled appearance. Possibility of a gastritis or other intrinsic/invasive wall lesion including gastric carcinoma not excluded. Clinical correlation recommended. Visualized loops of small bowel exhibit normal contour and caliber. No evidence of acute mechanical small bowel obstruction with oral contrast material seen extending into the large bowel to the level of the mid descending colon. There are few scattered colonic diverticula along the descending and sigmoid colon. No radiographic evidence of acute diverticulitis. PERITONEUM: No fluid collection. No free air. . LYMPH NODES: No significant lymphadenopathy. VASCULATURE: No evidence of abdominal aortic or iliac artery aneurysm. Partially calcified atherosclerotic plaque seen along the abdominal aorta and iliac arteries. BONES: Mild multilevel degenerative spondylosis of the lower thoracic and lumbar spine. There are no acute compression fractures no retropulsed fragments. OTHER FINDINGS: None. . IMPRESSION: Findings are consistent with this patient's history of anemia as above. Borderline hepatomegaly. . Small splenule is present. Two vague areas of low attenuation within the mid and posterior body of the pancreas which could represent volume averaging artifact or wall however follow-up pancreatic protocol CT scan recommended to the to exclude pancreatic masses. . There is wall thickening of the stomach which may in part be due to incomplete distention of gastritis or other intrinsic/invasive wall lesion including gastric carcinoma should be excluded. Followup endoscopy may be prudent.
[2017-07-02 19:55] LABS: HEMATOCRIT 23.1 % (42.0-52.0)
[2017-07-02 20:22] LABS: PHOSPHOROUS 4.6 mg/dL (2.5-4.5)
[2017-07-02 21:00] LABS: IRON 179 ug/dL (45-180)
--- NOTE | 2017-07-03 01:25 | CON ---
DATE: 07/02/2017 REASON FOR CONSULTATION: Severe anemia, advanced chronic kidney disease. HISTORY OF PRESENT ILLNESS: A 52-year-old male known to me from outpatient followup. The patient has severe anemia. He has anemia of chronic kidney disease. He was prescribed oral iron. He was also prescribed Procrit, but he was unable to get the Procrit because of insurance issues. His insurance will not approve Procrit. The patient presented to the emergency room yesterday after a couple of episodes of syncope at home, also he is complaining of being very weak. In the emergency room, he was found to have a hemoglobin of 4.8, it is at 4.0. He was also found to have elevated BUN and creatinine of 93 and 4.0. His blood pressure was 133/63, heart rate was 78. In the emergency room, he received a total of 3 units of blood so far. He is seen lying in bed. He complains of being weak, but he denies any chest tightness, palpitations. Denies any shortness of breath. He denies any lower extremity edema. PAST MEDICAL AND SURGICAL HISTORY: NIDDM, hypertension, hypertensive heart disease, chronic kidney disease stage 4, anemia of chronic kidney disease, secondary hyperparathyroidism. FAMILY HISTORY: Hypertension. SOCIAL HISTORY: Ex-smoker, no alcohol use, no IV drug abuse. ALLERGIES: NO KNOWN DRUG ALLERGIES. MEDICATIONS AT HOME: Fenofibrate, vitamin D, hydralazine 100 q.8, Actos 30 mg daily, Lopressor 25 b.i.d., insulin. REVIEW OF SYSTEMS: All systems are reviewed, pertinent positives as mentioned in the history of presenting illness, rest unremarkable. PHYSICAL EXAMINATION: GENERAL: Middle-aged male lying in bed. VITAL SIGNS: Blood pressure 149/75, heart rate 78, respiratory rate 20, temperature 98.6. HEENT: Normocephalic, atraumatic, positive pallor. NECK: Supple, no JVD. LUNGS: Bilateral equal air entry, no rales. CARDIAC: S1 and S2, regular rate and rhythm, no murmur, no rub. ABDOMEN: Soft, nondistended, nontender, bowel sounds present. EXTREMITIES: No lower extremity edema. INTAKE AND OUTPUT: Not charted. LABORATORY DATA: WBC 8.3, hemoglobin 4.0, hematocrit 12.6, platelets 294. Sodium 140, potassium 4.7, chloride 108, CO2 19, BUN 93, creatinine 4.0, glucose 218, calcium 9.4, AST 22, ALT 25, troponin 0.03, albumin 3.2. CURRENT MEDICATIONS: Insulin, Protonix, TriCor, Tylenol, Zofran, Pepcid. ASSESSMENT: 1. Severe anemia, largely secondary to chronic kidney disease, need to rule out gastrointestinal blood loss. 2. Advanced chronic kidney disease stage 4. 3. Severe hypertension. 4. Noninsulin-dependent diabetes mellitus. 5. History of peptic ulcer disease. PLAN: 1. Stool occults x3. 2. Agree with plan for endoscopy. 3. The patient already has received 3 units of blood, scheduled to receive another unit. 4. Monitor H and H closely. 5. Check phosphorus. 6. Check iron stores, although the patient has already been given 3 units of blood. 7. Monitor fingersticks and continue insulin coverage. 8. Continue current antihypertensives. Thank you for the courtesy of this consultation. We will follow this patient closely with you. Zandra Garza MD
[2017-07-03] MEDS: Sodium Chloride 0.9% 1,000 ML IV SCH ×2 (05:38→20:42)
[2017-07-03] MEDS: Insulin Lispro (HUMAlog) HIGH Coverage SC SCH ×4 (07:47→23:43)
[2017-07-03 08:24] LABS: BASO # 0.03 K/mm3 (0.0-2.0); BASO % 0.4 % (0.0-3.0); EOS # 0.1 (0.0-0.7); EOS % 1.6 % (1.5-5.0); GRAN # 4.8 (1.4-6.5); GRAN % 67.7 % (50.0-68.0); LYMPH # 1.6 (1.2-3.4); LYMPH % 23.2 % (22.0-35.0); MEAN CELL VOLUME 89.4 fl (80.0-105.0); MEAN CORPUSCULAR HEMOGLOBIN 29.7 pg (25.0-35.0); MEAN CORPUSCULAR HGB CONC 33.2 g/dl (31.0-37.0); MEAN PLATELET VOLUME 9.8 fl (7.0-11.0); MONO # 0.5 (0.1-0.6); MONO % 7.1 % (1.0-6.0); RED CELL DISTRIBUTION WIDTH 15.6 % (11.5-14.5); WHITE BLOOD COUNT 7.1 10^3/ul (4.5-11.0)
[2017-07-03 08:44] LABS: HEMATOCRIT 21.1 % (42.0-52.0)
[2017-07-03 08:54] LABS: ALB/GLOB RATIO 1.3 (1.1-1.8); BILIRUBIN,TOTAL 0.2 mg/dL (0.2-1.3); CALCIUM 9.2 mg/dL (8.4-10.5); POTASSIUM 4.3 mmol/L (3.6-5.0); TOTAL PROTEIN 5.6 g/dL (5.8-8.3)
--- NOTE | 2017-07-03 11:45 | PN ---
DATE: 07/03/2017 SUBJECTIVE: The patient is currently seen sitting up in bed. According to staff, he has had no further vomiting of blood and no melena. He has received a total of 4 units of packed red blood cells and his hemoglobin this morning is in the 7.0 range. When he came into the hospital, his hemoglobin was 4.0. The patient is awaiting perhaps another unit of blood to be transfused prior to going for an upper endoscopy. The patient states he feels fine and wants to go home. The patient was seen by us originally back in early 05/2017 and he was to have returned to our office for followup of his chronic kidney disease, which never took place. MEDICATIONS: Medication list reviewed. The patient is currently on hydralazine, insulin, Protonix, normal saline, TriCor, Tylenol and Zofran p.r.n. OBJECTIVE: INTAKE/OUTPUT: Intake 1599, output 600. VITAL SIGNS: Blood pressure 161/87, temperature 98, respiratory rate 20 with a pulse of 72. HEENT: Shows him to be normocephalic, atraumatic. Conjunctivae are pale. Sclerae nonicteric. NECK: Supple. No neck vein distention. CHEST: Clear to auscultation and percussion. No rales, rhonchi or wheezing. CARDIOVASCULAR: Shows a regular rate and rhythm without audible murmurs, rubs or gallops. ABDOMEN: Soft. Bowel sounds normal. No rebound or guarding. No masses. No distention. EXTREMITIES: Show no lower extremity edema with pulses being 2+ bilaterally. No cyanosis or clubbing. LABORATORY DATA AND IMAGING: CBC today; white blood cell count 7.1; hemoglobin is up from 4.0 on admission, it went as high as 7.8, now it is 7.0. Platelet count is 257,000. Coags are normal. Chemistries showed normal electrolytes. BUN 68 with a creatinine of 3.7. His maximum BUN was 93. His creatinine maximum was 4.0 on the previous admission back in 05/2017. He had a baseline BUN in the mid 40s with a baseline creatinine in the 3.4 to 3.5 range. Previous admission, he had a creatinine clearance of 18 mL per minute with 5.75 gm of protein in the urine. As noted above, the patient was to have returned for a complete serological workup of the proteinuria, so in all likelihood, it is secondary to uncontrolled diabetes. ASSESSMENT: 1. Life-threatening upper gastrointestinal bleed. Hemoglobin was down to 4.0. Agree with transfusing the patient perhaps 1 more unit of blood prior to endoscopy. The patient will continue protein pump inhibition therapy. 2. Acute renal failure superimposed on chronic kidney disease stage IV. This is in the setting of gastrointestinal bleed. 3. History of hypertension. Blood pressure control is fair. Inpatient had been on hydralazine and beta sweta therapy in the outpatient setting. Calcium channel sweta therapy may be added as necessary. 4. History of insulin-dependent diabetes mellitus. The patient will continue using long-acting insulin at home. In the hospital he is on sliding scale insulin. 5. Past history of peptic ulcer disease. 6. History of hyperlipidemia. The patient will continue present medical therapy. PLAN: 1. Again discussed with the patient the need for renal followup in the outpatient setting. The patient has nephrotic range proteinuria and deserves to have a screening workup to make certain that this is nothing but diabetes. 2. The patient's imaging studies of his kidneys have been unremarkable. 3. Await definitive GI evaluation including that of an upper endoscopy. 4. Continue to monitor his stools for any melena. 5. Continue to monitor the patient for any further episodes of vomiting up of blood. 6. Continue to follow H and H on a frequent basis with transfusing the patient as necessary. 7. Once the patient stops a regular diet, he should be on a diabetic renal diet. Lee Paulino MD
[2017-07-03 12:56] LABS: HEMATOCRIT 22.2 % (42.0-52.0)
[2017-07-03 14:04] LABS: IRON 146 ug/dL (45-180)
[2017-07-03] MEDS ORDERED: Peg-Electrolyte Oral Soln 4L (Golytely) PO ONE (15:22)
--- NOTE | 2017-07-03 16:05 | CP.PCM.PN ---
<KariMiladis - Last Filed: 07/03/17 16:00> Subjective - Date & Time of Evaluation Date of Evaluation: 07/03/17 Time of Evaluation: 07:30 - Subjective Subjective: Miladis Pierce DO PGY1 - Internal Medicine Progress Note Patient seen and examined at bedside. Patient received 4u PRBC yesterday. Today , he is seen sitting upright at the side of the bed. He was requesting to go home. Discussed with the patient the severity of his illness, and he expressed understanding, and decided to stay. He currently denies any chest pain, SOB, dizziness, headache, abdominal pain, nausea, vomiting, diarrhea, constipation. He denies hematochezia, melena, hematemesis, or hemoptysis. Objective - Vital Signs/Intake and Output Vital Signs (last 24 hours): Temp Pulse Resp BP Pulse Ox 98.0 F 65 20 161/87 H 99 07/03/17 06:00 07/03/17 10:00 07/03/17 06:00 07/03/17 06:00 07/03/17 06:00 Intake and Output: 07/03/17 07/03/17 06:59 18:59 Intake Total 1000 Balance 1000 - Medications Medications: Current Medications Acetaminophen (Tylenol 325mg Tab) 650 mg PO Q4H PRN PRN Reason: Fever >100.4 F Fenofibrate (Tricor) 145 mg PO DAILY [facility] Last Admin: 07/03/17 09:49 Dose: 145 mg Hydralazine HCl (Apresoline) 10 mg IVP Q6 PRN PRN Reason: Systolic Blood Pressure Sodium Chloride (Sodium Chloride 0.9%) 1,000 mls @ 75 mls/hr IV .[id number] [facility] Last Admin: 07/03/17 05:38 Dose: 75 mls/hr Insulin Human Lispro (Humalog High) 0 units SC ACHS PAM PRN Reason: Protocol Last Admin: 07/03/17 12:37 Dose: Not Given Ondansetron HCl (Zofran Inj) 4 mg IVP Q6H PRN PRN Reason: Nausea/Vomiting Last Admin: 07/02/17 09:34 Dose: 4 mg Pantoprazole Sodium (Protonix Inj) 40 mg IVP Q12 [facility] Last Admin: 07/03/17 09:49 Dose: 40 mg - Labs Labs: 07/03/17 12:40 07/03/17 07:40 PT 12.1 SECONDS (9.4-12.5) 07/01/17 23:11 INR 1.11 (0.93-1.08) H 07/01/17 23:11 APTT 27.9 Seconds (25.1-36.5) 07/01/17 23:11 - Constitutional Appears: Non-toxic, No Acute Distress - Head Exam Head Exam: ATRAUMATIC, NORMOCEPHALIC - Eye Exam Eye Exam: EOMI, Normal appearance. absent: Scleral icterus Additional comments: Conjunctival pallor - ENT Exam ENT Exam: Mucous Membranes Moist - Neck Exam Neck Exam: Normal Inspection - Respiratory Exam Respiratory Exam: Clear to Ausculation Bilateral, NORMAL BREATHING PATTERN - Cardiovascular Exam Cardiovascular Exam: RRR, +S1, +S2 - GI/Abdominal Exam GI & Abdominal Exam: Soft, Normal Bowel Sounds. absent: Distended, Firm, Guarding, Rigid, Tenderness, Organomegaly, Rebound - Rectal Exam Additional comments: Rectal exam yesterday showed melena; no bright red blood, no hemorrhoids or fissures - Extremities Exam Extremities Exam: absent: Calf Tenderness, Pedal Edema - Neurological Exam Neurological Exam: Alert, Awake, Oriented x3 - Psychiatric Exam Psychiatric exam: Normal Affect, Normal Mood - Skin Skin Exam: Dry, Intact, Normal Color Assessment and Plan - Assessment and Plan (Free Text) Assessment: Patient is a 52 year old male, whose past medical history includes diabetes, hypertension, gastroparesis, anemia, and renal insufficiency, who presents to the emergency department complaining of generalized malaise and weakness. Plan Syncope; Generalized Weakness - likely secondary to anemia - Patient reports resolution of symptoms since receiving blood transfusion - high risk fall precautions Anemia - Normocytic, normochromic anemia; likely acute on chronic - Likely multifactorial 2/2 CKD and GIB - Patient received 4u PRBC with appropriate response; continue to trend H&H; transfuse with goal Hgb 7-8 - monitor closely via CBC - Iron studies ordered from intake labs; pending GI Bleed - Melena noted on exam - Continue protonix 40 IV daily (decreased from BID in setting of renal failure) - Patient scheduled for EGD/Colonoscopy on Wednesday - Continue clear liquid diet - Golytly prep, 1/2 today, 1/2 tomorrow per GI - GI consulted- appreciate recommendations Renal Insuffiency - Cr and BUN markedly elevated, but near his baseline; improved slightly today - Patient followed by Dr. Garza outpatient; not currently on dialysis - Nephro on consult, appreciate recs Hx of Htn - Continue to hold home medications until stabilization of acute anemia - Hydralazine 5mg IV q6 prn SBP > 180, holding parameters- do not administer if HR is > 100 bpm Hx of Diabetes - Hold oral hypoglycemics - Continue SSI Med - fingersticks ACHS Hx of Hyperlipidemia - Continue home fenofibrate Prophylaxis - DVT ppx- scds - GI ppx- protonix Patient seen, discussed, and reviewed with attending <Dewayne Vela - Last Filed: 07/03/17 18:34> Objective - Vital Signs/Intake and Output Vital Signs (last 24 hours): Temp Pulse Resp BP Pulse Ox 97.9 F 69 20 168/70 H 99 07/03/17 18:00 07/03/17 18:00 07/03/17 18:00 07/03/17 18:00 07/03/17 06:00 Intake and Output: 07/03/17 07/03/17 06:59 18:59 Intake Total 1000 100 Balance 1000 100 - Medications Medications: Current Medications Acetaminophen (Tylenol 325mg Tab) 650 mg PO Q4H PRN PRN Reason: Fever >100.4 F Fenofibrate (Tricor) 145 mg PO DAILY [facility] Last Admin: 07/03/17 09:49 Dose: 145 mg Hydralazine HCl (Apresoline) 10 mg IVP Q6 PRN PRN Reason: Systolic Blood Pressure Sodium Chloride (Sodium Chloride 0.9%) 1,000 mls @ 75 mls/hr IV .[id number] [facility] Last Admin: 07/03/17 05:38 Dose: 75 mls/hr Insulin Human Lispro (Humalog High) 0 units SC ACHS PAM PRN Reason: Protocol Last Admin: 07/03/17 16:49 Dose: Not Given Ondansetron HCl (Zofran Inj) 4 mg IVP Q6H PRN PRN Reason: Nausea/Vomiting Last Admin: 07/02/17 09:34 Dose: 4 mg Pantoprazole Sodium (Protonix Inj) 40 mg IVP Q12 [facility] Last Admin: 07/03/17 09:49 Dose: 40 mg - Labs Labs: 07/03/17 12:40 07/03/17 07:40 PT 12.1 SECONDS (9.4-12.5) 07/01/17 23:11 INR 1.11 (0.93-1.08) H 07/01/17 23:11 APTT 27.9 Seconds (25.1-36.5) 07/01/17 23:11 Attending/Attestation - Attestation I have personally seen and examined this patient.: Yes I have fully participated in the care of the patient.: Yes I have reviewed all pertinent clinical information, including history, physical exam and plan: Yes Notes (Text): 07/03/17 18:24 52 year old male with past medical history of hypertension, diabetes and CKD who is admitted for symptomatic anemia. He was found to have significant anemia with hemoglobin of 4.0. He is s/p 4 units of prbc with hemoglobin today at 7.0. Case was discussed with GI and nephrology; will transfuse one more unit today. Case was discussed with Dr. Lucio regarding plan for possible EGD/ colonoscopy on Wednesday. Continue with protonix. Continue with clear liquid diet for now. Dewayne Vela MD Hospitalist.
[2017-07-04 08:10] LABS: BASO # 0.02 K/mm3 (0.0-2.0); BASO % 0.3 % (0.0-3.0); EOS # 0.1 (0.0-0.7); EOS % 1.9 % (1.5-5.0); GRAN # 4.77 (1.4-6.5); GRAN % 63.1 % (50.0-68.0); HEMATOCRIT 24.7 % (42.0-52.0); LYMPH % 26.8 % (22.0-35.0); MEAN CELL VOLUME 88.5 fl (80.0-105.0); MEAN CORPUSCULAR HEMOGLOBIN 29.7 pg (25.0-35.0); MEAN CORPUSCULAR HGB CONC 33.6 g/dl (31.0-37.0); MEAN PLATELET VOLUME 9.9 fl (7.0-11.0); MONO # 0.6 (0.1-0.6); MONO % 7.9 % (1.0-6.0); RED CELL DISTRIBUTION WIDTH 15.1 % (11.5-14.5); WHITE BLOOD COUNT 7.6 10^3/ul (4.5-11.0)
[2017-07-04 08:30] LABS: ALB/GLOB RATIO 1.4 (1.1-1.8); BILIRUBIN,TOTAL 0.3 mg/dL (0.2-1.3); CALCIUM 9.1 mg/dL (8.4-10.5); POTASSIUM 4.1 mmol/L (3.6-5.0); TOTAL PROTEIN 5.8 g/dL (5.8-8.3)
[2017-07-04] MEDS: Sodium Chloride 0.9% 1,000 ML IV SCH ×3 (09:04→22:07)
[2017-07-04] MEDS: Insulin Lispro (HUMAlog) HIGH Coverage SC SCH ×4 (10:19→21:59)
--- NOTE | 2017-07-04 11:19 | CP.PCM.PN ---
<Miladis Pierce - Last Filed: 07/04/17 11:14> Subjective - Date & Time of Evaluation Date of Evaluation: 07/04/17 Time of Evaluation: 07:30 - Subjective Subjective: Miladis Pierce DO PGY1 - Internal Medicine Progress Note Patient seen and examined at bedside. Patient received an addition 1u PRBC yesterday. He also started his golytely prep yesterday, finishing half of it, with the other half scheduled for today. He currently denies any chest pain, SOB , dizziness, headache, abdominal pain, nausea, vomiting, diarrhea, constipation. He denies any hematochezia, melena, hematemesis, or hemoptysis since yesterday. Objective - Vital Signs/Intake and Output Vital Signs (last 24 hours): Temp Pulse Resp BP Pulse Ox 98.5 F 77 18 149/71 100 07/04/17 06:00 07/04/17 06:00 07/04/17 06:00 07/04/17 06:00 07/04/17 06:00 Intake and Output: 07/04/17 07/04/17 06:59 18:59 Intake Total 1902 Balance 1902 - Medications Medications: Current Medications Acetaminophen (Tylenol 325mg Tab) 650 mg PO Q4H PRN PRN Reason: Fever >100.4 F Fenofibrate (Tricor) 145 mg PO DAILY [facility] Last Admin: 07/04/17 10:25 Dose: 145 mg Hydralazine HCl (Apresoline) 10 mg IVP Q6 PRN PRN Reason: Systolic Blood Pressure Sodium Chloride (Sodium Chloride 0.9%) 1,000 mls @ 75 mls/hr IV .[id number] [facility] Last Admin: 07/04/17 10:56 Dose: 75 mls/hr Insulin Human Lispro (Humalog High) 0 units SC ACHS PAM PRN Reason: Protocol Last Admin: 07/04/17 10:19 Dose: Not Given Ondansetron HCl (Zofran Inj) 4 mg IVP Q6H PRN PRN Reason: Nausea/Vomiting Last Admin: 07/02/17 09:34 Dose: 4 mg Pantoprazole Sodium (Protonix Inj) 40 mg IVP Q12 [facility] Last Admin: 07/04/17 10:25 Dose: 40 mg - Labs Labs: 07/04/17 07:30 07/04/17 07:30 PT 12.1 SECONDS (9.4-12.5) 07/01/17 23:11 INR 1.11 (0.93-1.08) H 07/01/17 23:11 APTT 27.9 Seconds (25.1-36.5) 07/01/17 23:11 - Constitutional Appears: Non-toxic, No Acute Distress - Head Exam Head Exam: ATRAUMATIC, NORMOCEPHALIC - Eye Exam Eye Exam: EOMI, Normal appearance - ENT Exam ENT Exam: Mucous Membranes Moist - Neck Exam Neck Exam: Normal Inspection - Respiratory Exam Respiratory Exam: Clear to Ausculation Bilateral, NORMAL BREATHING PATTERN - Cardiovascular Exam Cardiovascular Exam: RRR, +S1, +S2 - GI/Abdominal Exam GI & Abdominal Exam: Soft, Normal Bowel Sounds. absent: Distended, Firm, Guarding, Rigid, Tenderness - Extremities Exam Extremities Exam: absent: Calf Tenderness, Pedal Edema - Neurological Exam Neurological Exam: Alert, Awake, Oriented x3 - Psychiatric Exam Psychiatric exam: Normal Affect, Normal Mood - Skin Skin Exam: Dry, Intact Assessment and Plan - Assessment and Plan (Free Text) Assessment: Patient is a 52 year old male, whose past medical history includes diabetes, hypertension, gastroparesis, anemia, and renal insufficiency, who presents to the emergency department complaining of generalized malaise and weakness. Plan Syncope; Generalized Weakness - likely secondary to anemia - Patient reports resolution of symptoms since receiving blood transfusion - high risk fall precautions Anemia - Normocytic, normochromic anemia; likely acute on chronic - Likely multifactorial 2/2 CKD and GIB - Patient received 4u PRBC with appropriate response, received additional 1u PRBC yesterday; continue to trend H&H; transfuse with goal Hgb 7-8 - monitor closely via CBC - Iron studies ordered from intake labs; sample was grossly hemolyzed, results unreliable GI Bleed - Melena noted on exam - Continue protonix 40 IV daily (decreased from BID in setting of renal failure) - Patient scheduled for EGD/Colonoscopy on Wednesday - Continue clear liquid diet - Continue Golytly prep, 1/2 yesterday, 1/2 today per GI - GI consulted- appreciate recommendations Renal Insuffiency - Cr and BUN markedly elevated, but near his baseline; improving - Patient followed by Dr. Garza outpatient; not currently on dialysis - Nephro on consult, appreciate recs Hx of Htn - Continue to hold home medications until stabilization of acute anemia - Hydralazine 5mg IV q6 prn SBP > 180, holding parameters- do not administer if HR is > 100 bpm Hx of Diabetes - Hold oral hypoglycemics - Continue SSI Med - fingersticks ACHS Hx of Hyperlipidemia - Continue home fenofibrate Prophylaxis - DVT ppx- scds - GI ppx- protonix Patient seen, discussed, and reviewed with attending <Dewayne Vela - Last Filed: 07/04/17 11:41> Objective - Vital Signs/Intake and Output Vital Signs (last 24 hours): Temp Pulse Resp BP Pulse Ox 98.5 F 77 18 149/71 100 07/04/17 06:00 07/04/17 06:00 07/04/17 06:00 07/04/17 06:00 07/04/17 06:00 Intake and Output: 07/04/17 07/04/17 06:59 18:59 Intake Total 1902 Balance 1902 - Medications Medications: Current Medications Acetaminophen (Tylenol 325mg Tab) 650 mg PO Q4H PRN PRN Reason: Fever >100.4 F Fenofibrate (Tricor) 145 mg PO DAILY [facility] Last Admin: 07/04/17 10:25 Dose: 145 mg Hydralazine HCl (Apresoline) 10 mg IVP Q6 PRN PRN Reason: Systolic Blood Pressure Sodium Chloride (Sodium Chloride 0.9%) 1,000 mls @ 75 mls/hr IV .[id number] [facility] Last Admin: 07/04/17 10:56 Dose: 75 mls/hr Insulin Human Lispro (Humalog High) 0 units SC ACHS PAM PRN Reason: Protocol Last Admin: 07/04/17 10:19 Dose: Not Given Ondansetron HCl (Zofran Inj) 4 mg IVP Q6H PRN PRN Reason: Nausea/Vomiting Last Admin: 07/02/17 09:34 Dose: 4 mg Pantoprazole Sodium (Protonix Inj) 40 mg IVP Q12 [facility] Last Admin: 07/04/17 10:25 Dose: 40 mg - Labs Labs: 07/04/17 07:30 07/04/17 07:30 PT 12.1 SECONDS (9.4-12.5) 07/01/17 23:11 INR 1.11 (0.93-1.08) H 07/01/17 23:11 APTT 27.9 Seconds (25.1-36.5) 07/01/17 23:11 Attending/Attestation - Attestation I have personally seen and examined this patient.: Yes I have fully participated in the care of the patient.: Yes I have reviewed all pertinent clinical information, including history, physical exam and plan: Yes Notes (Text): 07/04/17 11:40 52 year old male with past medical history of hypertension, diabetes and CKD who is admitted for symptomatic anemia. He was found to have significant anemia with hemoglobin of 4.0. He is s/p 5 units of prbc with hemoglobin today at 8.3. Case was discussed with GI and plan is for possible EGD/colonoscopy tomorrow. Nephrology is following as well for acute on chronic kidney disease which is improving. Dewayne Vela MD Hospitalist.
--- NOTE | 2017-07-04 12:13 | CP.PCM.PN ---
Subjective - Date & Time of Evaluation Date of Evaluation: 07/03/17 Time of Evaluation: 13:30 - Subjective Subjective: feeling better on clear liquid diet. Patient's was at bedside at the time of examination. No complaints of abdominal pain no bleeding per rectum or melena Objective - Vital Signs/Intake and Output Vital Signs (last 24 hours): Temp Pulse Resp BP Pulse Ox 97.8 F 63 20 162/92 H 99 07/03/17 20:38 07/03/17 20:38 07/03/17 20:38 07/03/17 20:38 07/03/17 06:00 Intake and Output: 07/03/17 07/04/17 18:59 06:59 Intake Total 100 282 Balance 100 282 - Medications Medications: Current Medications Acetaminophen (Tylenol 325mg Tab) 650 mg PO Q4H PRN PRN Reason: Fever >100.4 F Fenofibrate (Tricor) 145 mg PO DAILY [facility] Last Admin: 07/03/17 09:49 Dose: 145 mg Hydralazine HCl (Apresoline) 10 mg IVP Q6 PRN PRN Reason: Systolic Blood Pressure Sodium Chloride (Sodium Chloride 0.9%) 1,000 mls @ 75 mls/hr IV .[id number] [facility] Last Admin: 07/03/17 20:42 Dose: 75 mls/hr Insulin Human Lispro (Humalog High) 0 units SC ACHS [facility] PRN Reason: Protocol Last Admin: 07/03/17 23:43 Dose: Not Given Ondansetron HCl (Zofran Inj) 4 mg IVP Q6H PRN PRN Reason: Nausea/Vomiting Last Admin: 07/02/17 09:34 Dose: 4 mg Pantoprazole Sodium (Protonix Inj) 40 mg IVP Q12 [facility] Last Admin: 07/03/17 21:35 Dose: 40 mg - Labs Labs: 07/03/17 12:40 07/03/17 07:40 PT 12.1 SECONDS (9.4-12.5) 07/01/17 23:11 INR 1.11 (0.93-1.08) H 07/01/17 23:11 APTT 27.9 Seconds (25.1-36.5) 07/01/17 23:11 - Constitutional Appears: Well, No Acute Distress - Head Exam Head Exam: ATRAUMATIC, NORMOCEPHALIC - Eye Exam Eye Exam: EOMI, PERRL - ENT Exam ENT Exam: Mucous Membranes Moist, Normal Oropharynx - Neck Exam Neck Exam: Normal Inspection. absent: Lymphadenopathy - Respiratory Exam Respiratory Exam: NORMAL BREATHING PATTERN. absent: Rales, Rhonchi - Cardiovascular Exam Cardiovascular Exam: REGULAR RHYTHM, +S1, +S2 - GI/Abdominal Exam GI & Abdominal Exam: Soft. absent: Tenderness, Mass - Extremities Exam Extremities Exam: Full ROM. absent: Calf Tenderness - Neurological Exam Neurological Exam: Alert, Awake, Oriented x3 Assessment and Plan - Assessment and Plan (Free Text) Assessment: this 52-year-old patient with a past medical history of chronic kidney disease, diabetes mellitus, hypertension was admitted with a severe symptomatic anemia status post 4 units transfusion given hemoglobin 7.4. History of gastric ulcers in the past The CT scan was reviewed Patient is scheduled for an EGD and colonoscopy on Wednesday CT also revealed severe constipation will start the patient on GoLYTELY and continue clear liquid diet p
[2017-07-04] MEDS ORDERED: Peg-Electrolyte Oral Soln 4L (Golytely) PO ONE (18:30)
--- NOTE | 2017-07-05 01:36 | PN ---
DATE: 07/04/2017 SUBJECTIVE: This patient was seen and evaluated earlier today. The patient's at the bedside. He did finish a gallon of GoLYTELY. He still states that stool is not clear. PHYSICAL EXAMINATION: VITAL SIGNS: Temperature is 97.5, pulse 60 and blood pressure is 132/70. HEENT: Atraumatic. Anicteric. NECK: Supple. HEART: S1 and S2 heard. LUNGS: Bilateral air entry present. ABDOMEN: Soft. There is no tenderness. No mass. EXTREMITIES: No cyanosis, no clubbing. LABORATORY DATA: Hemoglobin 8.3, hematocrit 24.7, WBC 7.6 and platelets 289. Chemistry shows BUN 50 and creatinine 3.2. Alkaline phosphatase is normal at 37. IMPRESSION: 1. This 52-year-old patient admitted with severe anemia with hemoglobin of 4.0. The patient was transfused 5 units of packed RBC. 2. History of gastric ulcer. 3. Chronic kidney disease. Other comorbidities include diabetes mellitus, hypertension, dyslipidemia. RECOMMENDATIONS: The patient was given another half a gallon of GoLYTELY to take today. Continue with clear liquid diet. Scheduled for an EGD and colonoscopy tomorrow. Thank you very much for allowing us to participate in the care of the patient. Teresita Lucio MD
[2017-07-05 06:59] LABS: BASO # 0.01 K/mm3 (0.0-2.0); BASO % 0.2 % (0.0-3.0); EOS # 0.1 (0.0-0.7); EOS % 1.9 % (1.5-5.0); GRAN # 4.3 (1.4-6.5); GRAN % 67.9 % (50.0-68.0); LYMPH # 1.4 (1.2-3.4); LYMPH % 22.1 % (22.0-35.0); MEAN CELL VOLUME 88.6 fl (80.0-105.0); MEAN CORPUSCULAR HEMOGLOBIN 29.7 pg (25.0-35.0); MEAN CORPUSCULAR HGB CONC 33.5 g/dl (31.0-37.0); MEAN PLATELET VOLUME 9.9 fl (7.0-11.0); MONO # 0.5 (0.1-0.6); MONO % 7.9 % (1.0-6.0); RED CELL DISTRIBUTION WIDTH 15.2 % (11.5-14.5); WHITE BLOOD COUNT 6.3 10^3/ul (4.5-11.0)
[2017-07-05 07:05] LABS: HEMATOCRIT 20.9 % (42.0-52.0)
[2017-07-05 07:53] LABS: ALB/GLOB RATIO 1.2 (1.1-1.8); BILIRUBIN,TOTAL 0.2 mg/dL (0.2-1.3); CALCIUM 8.6 mg/dL (8.4-10.5); POTASSIUM 4.3 mmol/L (3.6-5.0); TOTAL PROTEIN 4.8 g/dL (5.8-8.3)
[2017-07-05] MEDS: Insulin Lispro (HUMAlog) HIGH Coverage SC SCH ×3 (09:16→22:00)
[2017-07-05] MEDS: Sodium Chloride 0.9% 1,000 ML IV SCH ×2 (09:50→21:29)
--- NOTE | 2017-07-05 13:53 | CP.PCM.PN ---
<Miladis Pierce - Last Filed: 07/05/17 13:42> Subjective - Date & Time of Evaluation Date of Evaluation: 07/05/17 Time of Evaluation: 07:30 - Subjective Subjective: Miladis Pierce DO PGY1 - Internal Medicine Progress Note Patient seen and examined at bedside. No events overnight. Patient is scheduled for EGD and colonoscopy this afternoon. Patient is anxious to go home. He currently denies any chest pain, SOB, dizziness, headache, abdominal pain, nausea, vomiting, diarrhea, constipation. He denies any hematochezia, melena, hematemesis, or hemoptysis since yesterday. He finished his prep yesterday, and his stools are now clear. Objective - Vital Signs/Intake and Output Vital Signs (last 24 hours): Temp Pulse Resp BP Pulse Ox 98.4 F 75 20 144/76 100 07/05/17 13:40 07/05/17 13:40 07/05/17 13:40 07/05/17 13:40 07/05/17 12:00 Intake and Output: 07/05/17 07/05/17 06:59 18:59 Intake Total 900 0 Output Total 800 Balance 100 0 - Medications Medications: Current Medications Acetaminophen (Tylenol 325mg Tab) 650 mg PO Q4H PRN PRN Reason: Fever >100.4 F Fenofibrate (Tricor) 145 mg PO DAILY [facility] Last Admin: 07/05/17 10:01 Dose: 145 mg Hydralazine HCl (Apresoline) 10 mg IVP Q6 PRN PRN Reason: Systolic Blood Pressure Last Admin: 07/05/17 06:30 Dose: 10 mg Hydralazine HCl (Apresoline) 100 mg PO Q8 [facility] Last Admin: 07/05/17 13:23 Dose: Not Given Insulin Human Lispro (Humalog High) 0 units SC ACHS [facility] PRN Reason: Protocol Last Admin: 07/05/17 13:24 Dose: Not Given Metoprolol Tartrate (Lopressor) 25 mg PO BID [facility] Last Admin: 07/05/17 13:25 Dose: Not Given Ondansetron HCl (Zofran Inj) 4 mg IVP Q6H PRN PRN Reason: Nausea/Vomiting Last Admin: 07/02/17 09:34 Dose: 4 mg Pantoprazole Sodium (Protonix Inj) 40 mg IVP Q12 [facility] Last Admin: 07/05/17 10:01 Dose: 40 mg - Labs Labs: 07/05/17 06:20 07/05/17 06:20 PT 12.1 SECONDS (9.4-12.5) 07/01/17 23:11 INR 1.11 (0.93-1.08) H 07/01/17 23:11 APTT 27.9 Seconds (25.1-36.5) 07/01/17 23:11 - Constitutional Appears: Non-toxic, No Acute Distress - Head Exam Head Exam: ATRAUMATIC, NORMOCEPHALIC - Eye Exam Eye Exam: EOMI, Normal appearance - ENT Exam ENT Exam: Mucous Membranes Moist - Respiratory Exam Respiratory Exam: Clear to Ausculation Bilateral, NORMAL BREATHING PATTERN - Cardiovascular Exam Cardiovascular Exam: RRR, +S1, +S2 - GI/Abdominal Exam GI & Abdominal Exam: Soft, Normal Bowel Sounds. absent: Tenderness - Extremities Exam Extremities Exam: absent: Calf Tenderness, Pedal Edema - Neurological Exam Neurological Exam: Alert, Awake, Oriented x3 - Psychiatric Exam Psychiatric exam: Normal Affect, Normal Mood - Skin Skin Exam: Dry, Intact Assessment and Plan - Assessment and Plan (Free Text) Assessment: Patient is a 52 year old male, whose past medical history includes diabetes, hypertension, gastroparesis, anemia, and renal insufficiency, who presents to the emergency department complaining of generalized malaise and weakness. Plan Anemia - Normocytic, normochromic anemia; likely acute on chronic - Likely multifactorial 2/2 CKD and GIB - Patient received 5u PRBC with appropriate response; continue to trend H&H; transfuse with goal Hgb 7-8 - Hgb dropped again today to 7.0, possible dilutional component, though cannot rule out continuing bleed; ordered one more unit before endoscopy today GI Bleed - Melena noted on initial exam - Continue protonix 40 IV daily (decreased from BID in setting of renal failure) - Patient scheduled for EGD/Colonoscopy today - GI consulted- appreciate recommendations Renal Insuffiency - Cr and BUN markedly elevated, but near his baseline; improving - Patient followed by Dr. Garza outpatient; not currently on dialysis - Nephro on consult, appreciate recs Hx of HTN - Resume home medications; PO hydralazine and metoprolol - Hydralazine 5mg IV q6 prn SBP > 180, holding parameters- do not administer if HR is > 100 bpm Hx of Diabetes - Hold oral hypoglycemics - Continue SSI Med - fingersticks ACHS Hx of Hyperlipidemia - Continue home fenofibrate Prophylaxis - DVT ppx- scds - GI ppx- protonix Patient seen, discussed, and reviewed with attending <Wicho Lim - Last Filed: 07/05/17 17:52> Objective - Vital Signs/Intake and Output Vital Signs (last 24 hours): Temp Pulse Resp BP Pulse Ox 97.9 F 76 18 168/82 H 100 07/05/17 17:31 07/05/17 17:31 07/05/17 17:31 07/05/17 17:31 07/05/17 17:31 Intake and Output: 07/05/17 07/05/17 06:59 18:59 Intake Total 900 1748 Output Total 800 450 Balance 100 1298 - Medications Medications: Current Medications Acetaminophen (Tylenol 325mg Tab) 650 mg PO Q4H PRN PRN Reason: Fever >100.4 F Fenofibrate (Tricor) 145 mg PO DAILY [facility] Last Admin: 07/05/17 10:01 Dose: 145 mg Hydralazine HCl (Apresoline) 10 mg IVP Q6 PRN PRN Reason: Systolic Blood Pressure Last Admin: 07/05/17 06:30 Dose: 10 mg Hydralazine HCl (Apresoline) 100 mg PO Q8 [facility] Last Admin: 07/05/17 15:04 Dose: Not Given Sodium Chloride (Sodium Chloride 0.9%) 1,000 mls @ 100 mls/hr IV .Q10H [facility] Pantoprazole Sodium (Protonix 40mg Ivpb) 40 mg in 100 mls @ 10 mls/hr IVPB .Q10H [facility] Insulin Human Lispro (Humalog High) 0 units SC ACHS [facility] PRN Reason: Protocol Last Admin: 07/05/17 13:24 Dose: Not Given Metoprolol Tartrate (Lopressor) 25 mg PO BID [facility] Ondansetron HCl (Zofran Inj) 4 mg IVP Q6H PRN PRN Reason: Nausea/Vomiting Last Admin: 07/02/17 09:34 Dose: 4 mg - Labs Labs: 07/05/17 06:20 07/05/17 06:20 PT 12.1 SECONDS (9.4-12.5) 07/01/17 23:11 INR 1.11 (0.93-1.08) H 07/01/17 23:11 APTT 27.9 Seconds (25.1-36.5) 07/01/17 23:11 Attending/Attestation - Attestation I have personally seen and examined this patient.: Yes I have fully participated in the care of the patient.: Yes I have reviewed all pertinent clinical information, including history, physical exam and plan: Yes Notes (Text): 07/05/17 17:49 Patient was seen and examined with registered medical transcriptionist. 52 year old male with past medical history of hypertension, diabetes and CKD who is admitted for symptomatic anemia. He was found to have significant anemia with hemoglobin of 4.0. He is s/p 5 units of PRBC.Hemoglobin was 7.0, underwent EGD and Colonoscopy today.EGD showed duodenal ulcer with visible vessel and active bleeding.Patient is SP clipping and cauterization, on PPI drip, will monitor Hemoglobin and Hematocrit. Case was discussed with GI. 07/05/17 17:51
[2017-07-05] MEDS ORDERED: Etomidate 20 mg/10ml Inj IV ONE (14:38)
[2017-07-05] MEDS ORDERED: Propofol 10 mg/ml Inj (20 ML) ONE ×3 (14:40→15:40)
[2017-07-05] MEDS ORDERED: Pantoprazole 40mg/100ml IVPB 40 MG/100 ML BAG IVPB SCH (16:30)
--- NOTE | 2017-07-05 17:10 | CP.PCM.CON ---
<Benito Farias - Last Filed: 07/05/17 17:32> History of Present Illness - History of Present Illness History of Present Illness: General Surgery- Dr. Garcia 52M pmhx of peptic ulcer disease, diabetes, HTN [place] [facility] [place]/ fatigue and episodes of syncope, hematemesis and 10-15lbs of weight loss in 4 weeks. Patient was found to have a Hg of 4. 2 units were transfused and repeat Hg 7. Colonoscopy was performed today and showed a duodenal ulcer actively bleeding. Epinephrine and 2 clips were applied. hemostasis was achieved. Patient denies fevers, chills, diarrhea, numbness/tingling in extremities. PMH: HTN, gastroparesis, anemia, diabetes, peptic ulcer disease PSH: none ALL: NKDA Socialhx: social drinker, former smoker quit couple of months ago. Review of Systems - Review of Systems All systems: reviewed and no additional remarkable complaints except - Constitutional Constitutional: As Per HPI Past Patient History - Infectious Disease Hx of Infectious Diseases: None - Past Social History Smoking Status: Never Smoked - CARDIAC Hx Hypertension: Yes - PULMONARY Hx Respiratory Disorders: No Hx Asthma: No Hx Bronchitis: No Hx Chronic Obstructive Pulmonary Disease (COPD): No Hx Emphysema: No Hx Pneumonia: No Hx Respiratory Aspiration: No Hx Respiratory Tract Infection: No Hx Sleep Apnea: No Hx Tuberculosis: No - NEUROLOGICAL Hx Neurological Disorder: No Hx Alzheimer's Disease: No HX Cerebrovascular Accident: No Hx Dementia: No Hx Dizziness: No Hx Meningitis: No Hx Migraine: No Hx Parkinson's Disease: No Hx Seizures: No Hx Transient Ischemic Attacks (TIA): No - HEENT Hx HEENT Problems: No Hx Blind: No Hx Cataracts: No Hx Deafness: No Hx Difficulty Chewing: No Hx Epistaxis: No Hx Glaucoma: No Hx Macular Degeneration: No - RENAL Hx Chronic Kidney Disease: Yes Hx Dialysis: No Hx Kidney Stones: No Hx Neurogenic Bladder: No Hx Pyelonephritis: No Hx Renal (Kidney) Cancer: No Hx Renal Failure: No - ENDOCRINE/METABOLIC Hx Diabetes Mellitus Type 2: Yes - HEMATOLOGICAL/ONCOLOGICAL Hx Blood Transfusions: Yes (PRESENTLY) Hx Blood Transfusion Reaction: No - INTEGUMENTARY Hx Dermatological Problems: No Hx Basil Cell: No Hx Eczema: No Hx Melanoma: No Hx Psoriasis: No Hx Squamous Cell: No - MUSCULOSKELETAL/RHEUMATOLOGICAL Hx Musculoskeletal Disorders: No Hx Arthritis: No Hx Back Pain: No Hx Degenerative Joint Disease: No Hx Falls: No Hx Fractures: No Hx Gout: No Hx Herniated Disk: No Hx Myasthenia Gravis: No Hx Osteoarthritis: No Hx Osteomyelitis: No Hx Osteoporosis: No Hx Rhabdomyolysis: No Hx Spinal Stenosis: No Hx Unsteady Gait: No - GASTROINTESTINAL Hx Gastrointestinal Disorders: No Hx Colostomy: No Hx Crohn's Disease: No Hx Diverticulitis: No Hx Gall Bladder Disease: No Hx Gastroesophageal Reflux: No Hx Ileostomy: No Hx Liver Failure: No Hx Pancreatitis: No HX Swallowing Problems: No - GENITOURINARY/GYNECOLOGICAL Hx Genitourinary Disorders: No Hx Hematuria: No Hx Incontinence: No Hx Prostate Problems: No Hx Sexually Transmitted Disorders: No Hx Urinary Tract Infection: No - PSYCHIATRIC Hx Substance Use: No - SURGICAL HISTORY Hx Surgeries: No - ANESTHESIA Hx Anesthesia Reactions: No Hx Malignant Hyperthermia: No Meds Allergies/Adverse Reactions: Allergies Allergy/AdvReac Type Severity Reaction Status Date / Time No Known Allergies Allergy Verified 07/01/17 22:54 - Medications Medications: Current Medications Acetaminophen (Tylenol 325mg Tab) 650 mg PO Q4H PRN PRN Reason: Fever >100.4 F Fenofibrate (Tricor) 145 mg PO DAILY [facility] Last Admin: 07/05/17 10:01 Dose: 145 mg Hydralazine HCl (Apresoline) 10 mg IVP Q6 PRN PRN Reason: Systolic Blood Pressure Last Admin: 07/05/17 06:30 Dose: 10 mg Hydralazine HCl (Apresoline) 100 mg PO Q8 [facility] Last Admin: 07/05/17 15:04 Dose: Not Given Sodium Chloride (Sodium Chloride 0.9%) 1,000 mls @ 100 mls/hr IV .Q10H [facility] Pantoprazole Sodium (Protonix 40mg Ivpb) 40 mg in 100 mls @ 10 mls/hr IVPB .Q10H [facility] Insulin Human Lispro (Humalog High) 0 units SC ACHS [facility] PRN Reason: Protocol Last Admin: 07/05/17 13:24 Dose: Not Given Metoprolol Tartrate (Lopressor) 25 mg PO BID [facility] Ondansetron HCl (Zofran Inj) 4 mg IVP Q6H PRN PRN Reason: Nausea/Vomiting Last Admin: 07/02/17 09:34 Dose: 4 mg Physical Exam - Constitutional Appears: Non-toxic, No Acute Distress - Head Exam Head Exam: ATRAUMATIC - Eye Exam Eye Exam: EOMI. absent: Scleral icterus - ENT Exam ENT Exam: Mucous Membranes Moist Additional comments: conjuctival pallor - Respiratory Exam Respiratory Exam: NORMAL BREATHING PATTERN. absent: Accessory Muscle Use, Respiratory Distress - Cardiovascular Exam Cardiovascular Exam: +S1, +S2. absent: Bradycardia, Tachycardia - GI/Abdominal Exam GI & Abdominal Exam: Soft. absent: Diminished Bowel Sounds, Distended, Firm, Rebound, Rigid, Tenderness - Extremities Exam Extremities exam: Positive for: normal inspection. Negative for: calf tenderness - Neurological Exam Neurological exam: Alert, Oriented x3 - Psychiatric Exam Psychiatric exam: Normal Affect - Skin Skin Exam: Intact, Warm Results - Vital Signs Recent Vital Signs: Last Vital Signs Temp 97.9 F 07/05/17 16:55 Pulse 90 07/05/17 16:55 Resp 22 07/05/17 16:55 BP 126/72 07/05/17 16:55 Pulse Ox 100 07/05/17 16:46 - Labs Result Diagrams: 07/05/17 06:20 07/05/17 06:20 Labs: Laboratory Results - last 24 hr 07/02/17 07/04/17 07/04/17 19:40 07:51 11:43 WBC RBC Hgb Hct MCV MCH MCHC RDW Plt Count MPV Gran % Lymph % (Auto) Zavala % (Auto) Eos % (Auto) Baso % (Auto) Gran # Lymph # Zavala # Eos # Baso # Sodium Potassium Chloride Carbon Dioxide Anion Gap BUN Creatinine Est GFR ( Amer) Est GFR (Non-Af Amer) POC Glucose (mg/dL) 127 H 164 H Random Glucose Calcium Total Bilirubin AST ALT Alkaline Phosphatase Total Protein Albumin Globulin Albumin/Globulin Ratio PTH Intact Whole Molec 140 H Blood Type Antibody Screen Crossmatch BBK History Checked 07/04/17 07/05/17 07/05/17 16:32 06:20 06:20 WBC 6.3 RBC 2.36 L Hgb 7.0 L Hct 20.9 L* MCV 88.6 MCH 29.7 MCHC 33.5 RDW 15.2 H Plt Count 269 MPV 9.9 Gran % 67.9 Lymph % (Auto) 22.1 Zavala % (Auto) 7.9 H Eos % (Auto) 1.9 Baso % (Auto) 0.2 Gran # 4.30 Lymph # 1.4 Zavala # 0.5 Eos # 0.1 Baso # 0.01 Sodium 139 Potassium 4.3 Chloride 107 Carbon Dioxide 24 Anion Gap 12 BUN 36 H Creatinine 2.9 H Est GFR ( Amer) 28 Est GFR (Non-Af Amer) 23 POC Glucose (mg/dL) 86 Random Glucose 126 H Calcium 8.6 Total Bilirubin 0.2 AST 17 ALT 19 Alkaline Phosphatase 30 L Total Protein 4.8 L Albumin 2.6 L Globulin 2.2 Albumin/Globulin Ratio 1.2 PTH Intact Whole Molec Blood Type Antibody Screen Crossmatch BBK History Checked 07/05/17 10:50 WBC RBC Hgb Hct MCV MCH MCHC RDW Plt Count MPV Gran % Lymph % (Auto) Zavala % (Auto) Eos % (Auto) Baso % (Auto) Gran # Lymph # Zavala # Eos # Baso # Sodium Potassium Chloride Carbon Dioxide Anion Gap BUN Creatinine Est GFR ( Amer) Est GFR (Non-Af Amer) POC Glucose (mg/dL) Random Glucose Calcium Total Bilirubin AST ALT Alkaline Phosphatase Total Protein Albumin Globulin Albumin/Globulin Ratio PTH Intact Whole Molec Blood Type O POSITIVE Antibody Screen Negative Crossmatch See Detail BBK History Checked Patient has bt Assessment & Plan - Assessment and Plan (Free Text) Assessment: 52M w/ upper GI bleed; active duodenal ulcer on EGD s/p clipping x2 and epi injection by GI Plan: - monitor H/H - transfuse PRN - monitor hematemsis - vitals check - further recs per Dr. Garcia surgical attending Benito Farias PGY1 <Darin Garcia - Last Filed: 07/06/17 00:20> Meds - Medications Medications: Current Medications Acetaminophen (Tylenol 325mg Tab) 650 mg PO Q4H PRN PRN Reason: Fever >100.4 F Fenofibrate (Tricor) 145 mg PO DAILY [facility] Last Admin: 07/05/17 10:01 Dose: 145 mg Hydralazine HCl (Apresoline) 10 mg IVP Q6 PRN PRN Reason: Systolic Blood Pressure Last Admin: 07/05/17 17:55 Dose: 10 mg Hydralazine HCl (Apresoline) 100 mg PO Q8 [facility] Last Admin: 07/05/17 21:09 Dose: 100 mg Sodium Chloride (Sodium Chloride 0.9%) 1,000 mls @ 100 mls/hr IV .Q10H [facility] Last Admin: 07/05/17 21:29 Dose: 100 mls/hr Pantoprazole Sodium (Protonix 40mg Ivpb) 40 mg in 100 mls @ 10 mls/hr IVPB .Q10H [facility] Last Admin: 07/05/17 20:18 Dose: 10 mls/hr Insulin Human Lispro (Humalog High) 0 units SC ACHS [facility] PRN Reason: Protocol Last Admin: 07/05/17 13:24 Dose: Not Given Metoprolol Tartrate (Lopressor) 25 mg PO BID [facility] Last Admin: 07/05/17 21:10 Dose: 25 mg Ondansetron HCl (Zofran Inj) 4 mg IVP Q6H PRN PRN Reason: Nausea/Vomiting Last Admin: 07/02/17 09:34 Dose: 4 mg Results - Vital Signs Recent Vital Signs: Last Vital Signs Temp 98 F 07/05/17 21:17 Pulse 82 07/05/17 22:00 Resp 20 07/05/17 21:17 BP 172/83 H 07/05/17 21:17 Pulse Ox 100 07/05/17 18:50 - Labs Result Diagrams: 07/05/17 22:25 07/05/17 06:20 Labs: Laboratory Results - last 24 hr 07/02/17 07/05/17 07/05/17 19:40 06:20 06:20 WBC 6.3 RBC 2.36 L Hgb 7.0 L Hct 20.9 L* MCV 88.6 MCH 29.7 MCHC 33.5 RDW 15.2 H Plt Count 269 MPV 9.9 Gran % 67.9 Lymph % (Auto) 22.1 Zavala % (Auto) 7.9 H Eos % (Auto) 1.9 Baso % (Auto) 0.2 Gran # 4.30 Lymph # 1.4 Zavala # 0.5 Eos # 0.1 Baso # 0.01 pO2 VBG pH VBG pCO2 VBG HCO3 VBG Total CO2 VBG O2 Sat (Calc) VBG Base Excess VBG Potassium Glucose Lactate FiO2 Sodium 139 Potassium 4.3 Chloride 107 Carbon Dioxide 24 Anion Gap 12 BUN 36 H Creatinine 2.9 H Est GFR ( Amer) 28 Est GFR (Non-Af Amer) 23 Random Glucose 126 H Calcium 8.6 Total Bilirubin 0.2 AST 17 ALT 19 Alkaline Phosphatase 30 L Total Protein 4.8 L Albumin 2.6 L Globulin 2.2 Albumin/Globulin Ratio 1.2 PTH Intact Whole Molec 140 H Venous Blood Potassium Blood Type Antibody Screen Crossmatch BBK History Checked 07/05/17 07/05/17 07/05/17 10:50 22:25 22:25 WBC 7.6 D RBC 3.09 L Hgb 9.4 L D Hct 27.7 L MCV 89.6 MCH 30.4 MCHC 33.9 RDW 15.2 H Plt Count 236 MPV 9.9 Gran % Lymph % (Auto) Zavala % (Auto) Eos % (Auto) Baso % (Auto) Gran # Lymph # Zavala # Eos # Baso # pO2 20 L VBG pH 7.36 VBG pCO2 46.0 VBG HCO3 26.0 VBG Total CO2 27.4 VBG O2 Sat (Calc) 48.9 VBG Base Excess 0.1 VBG Potassium 4.7 Glucose 100 Lactate 0.5 L FiO2 21.0 Sodium 138.0 Potassium Chloride 110.0 H Carbon Dioxide Anion Gap BUN Creatinine Est GFR ( Amer) Est GFR (Non-Af Amer) Random Glucose Calcium Total Bilirubin AST ALT Alkaline Phosphatase Total Protein Albumin Globulin Albumin/Globulin Ratio PTH Intact Whole Molec Venous Blood Potassium 4.7 Blood Type O POSITIVE Antibody Screen Negative Crossmatch See Detail BBK History Checked Patient has bt Assessment & Plan - Assessment and Plan (Free Text) Plan: Patient was seen and examined by me. I agree with assessment and plan as per resident's note. - Date & Time Date: 07/05/17 Time: 20:30
[2017-07-05] MEDS ORDERED: Metoprolol 1 mg/ml Inj IVP ONE (19:00)
[2017-07-05] MEDS: Pantoprazole 40mg/100ml IVPB 40 MG/100 ML BAG IVPB SCH (20:18)
[2017-07-05 22:32] LABS: HEMATOCRIT 27.7 % (42.0-52.0); MEAN CELL VOLUME 89.6 fl (80.0-105.0); MEAN CORPUSCULAR HEMOGLOBIN 30.4 pg (25.0-35.0); MEAN CORPUSCULAR HGB CONC 33.9 g/dl (31.0-37.0); MEAN PLATELET VOLUME 9.9 fl (7.0-11.0); RED CELL DISTRIBUTION WIDTH 15.2 % (11.5-14.5); WHITE BLOOD COUNT 7.6 10^3/ul (4.5-11.0)
[2017-07-05 22:35] LABS: VENOUS BLOOD GAS BASE EXCESS 0.1 mmol/L (0.0-2.0); VENOUS BLOOD PH 7.36 (7.32-7.43)
--- NOTE | 2017-07-06 03:36 | PN ---
DATE: 07/05/2017 SUBJECTIVE: The patient is seen, sitting in chair. He is awake. He is alert. He is comfortable. He reports ____[id number]_ get another unit of blood. He is scheduled for endoscopy later this afternoon. PHYSICAL EXAMINATION: GENERAL: A middle-aged male, sitting in chair. VITAL SIGNS: Blood pressure 144/76, heart rate 75, respiratory rate 20, temperature 98. HEENT: Normocephalic, atraumatic, with pallor. NECK: Supple. No JVD. LUNGS: Bilateral equal air entry, no rales. CARDIAC: S1, S2, regular rate and rhythm. No murmur. No rub. ABDOMEN: Obese, distended, soft, nontender. Bowel sounds present. EXTREMITIES: No lower extremity edema. INTAKE AND OUTPUT: 800/100. LABORATORY DATA: WBC 6.3, hemoglobin 7, hematocrit 20.9, platelets 269. Sodium 139, potassium 4.3, chloride 107, CO2 24, BUN 36, creatinine 2.9, glucose 126, calcium 8.6, albumin 2.6. Total of 8 units of PRBCs transfused. CURRENT MEDICATIONS: Insulin Lopressor 25 b.i.d., Protonix, TriCor, Tylenol, Zofran. ASSESSMENT: 1. Severe anemia, suspect gastrointestinal bleed. 2. Advanced chronic kidney disease stage 4. 3. Anemia of chronic kidney disease. 4. Noninsulin-dependent diabetes mellitus. 5. Severe hypertension. PLAN: 1. Endoscopy today. 2. Agree with transfusion as needed. 3. Continue current medications. 4. Monitor hemoglobin and hematocrit closely. 5. Continue fingersticks and insulin coverage. Zandra Garza MD
--- NOTE | 2017-07-06 03:48 | CON ---
DATE: 07/05/2017 HISTORY OF PRESENT ILLNESS: This is 52-year-old gentleman with history of diabetes, hypertension, gastritis, chronic renal disease who presented with hematemesis x3 about 2 days ago and the episodes of syncope. He was found to have severe anemia and was treated with blood transfusion and Protonix IV q. [address] scan of the abdomen and pelvis revealed some thickening of the gastric mucosa and GI consult was obtained. The patient undergone upper GI endoscopy today. The patient was found to have upper GI bleed in the duodenum which was clipped and hemostasis achieved. No fever, no chills, no sweats. No nausea, no vomiting, no diarrhea, no constipation. According to GI service assessment (Dr. Lucio), the patient is a high risk for rebleed and ICU consult was called for further management and monitoring. PAST MEDICAL HISTORY: Diabetes type 2, hypertension, chronic kidney disease, gastritis. FAMILY HISTORY: Noncontributory. SOCIAL HISTORY: No alcohol or illicit drug abuse. The patient smokes occasionally but not every day and not abusively. REVIEW OF SYSTEMS: Review of 12-organ systems other than mentioned in history of present illness is negative. ALLERGIES: NKDA. MEDICATIONS: At home, insulin glargine, TriCor, ergocalciferol, hydralazine, Actos, metoprolol. MEDICATIONS: In the hospital, Protonix drip, Tylenol p.r.n., TriCor, hydralazine p.r.n. and 100 mg p.o. q. 8 h. on standing dose, insulin lispro high protocol subcu before meals at bedtime, metoprolol, Zofran p.r.n. Protonix drip, normal saline 100 mL/hour. PHYSICAL EXAMINATION: VITAL SIGNS: Temperature 98.7, blood pressure 145/70, respiratory rate 16, oxygen saturation 100% on nasal cannula. ENT: Head and neck atraumatic. LUNGS: Clear to auscultation bilaterally. HEART: Regular rate and rhythm. S1, S2, normal. ABDOMEN: Soft, nontender and nondistended. MUSCULOSKELETAL: No C/C/E. NEUROLOGIC: The patient moves all extremities spontaneously. SKIN: Color is moist. PSYCHIATRIC: The patient is alert and oriented x3, comfortable. LABORATORY DATA: WBC 6.3, hemoglobin 7 down from 8.3, platelet count 269. Sodium 139, potassium 4.3, chloride 107, carbon dioxide 24, BUN 36, creatinine 2.9 down from 3.2, glucose 126, AST 17, ALT 19, total bilirubin 0.20, alkaline phosphatase 30, albumin 2.6. INR 1.11 as of 3 days ago. HOSPITAL MEDICATIONS: As mentioned before. DIAGNOSTIC DATA: CT scan of the abdomen and pelvis performed 3 days ago showed borderline hepatomegaly, 2 vague areas of flow, attenuation within the mean and posterior body of the pancreas which would represent volume-averaging artifact; however followup pancreatic protocol, CT scan recommended to exclude pancreatic masses. There is a wall thickening of the stomach which may in part be due to incomplete distention of the gastritis or other intrinsic invasive flow lesion including gastric carcinoma which should be excluded. At that time, endoscopy was recommended and today was performed. ASSESSMENT/PLAN: This is 52-year-old gentleman who presented with massive upper gastrointestinal bleed with subsequent yazdanism of hemodynamic stability and achievement of hemostasis status post upper gastrointestinal endoscopy with clipping bleeding vessel. At present time, patient is hemodynamically and respiratory chadwick stable. No signs of intra or extraluminal bleeding. The patient tolerated the procedure well. According to GI service, the patient has high-risk lesion for bleeding and thus will be going to ICU for further management and monitoring. Since his bleeding stopped, we will maintain his hemoglobin between 7 and 9. We will recheck his troponin, lactic acid pH. We will avoid dilutional coagulopathy, hyperthermia and acidosis. We will continue with DVT, GI prophylaxis. The patient will be on Protonix drip adjusted for his renal function. GI service will be following him as well. We will continue with serial CBC, n.p.o. for now. Mechanical DVT prophylaxis. We will continue to target euvolemia, euglycemia,, normothermia, and oxygen saturation more than 90%. ccm time 40 min Alec Dixon MD MTDD
[2017-07-06] MEDS: Pantoprazole 40mg/100ml IVPB 40 MG/100 ML BAG IVPB SCH ×2 (05:34→14:39)
[2017-07-06] MEDS: Sodium Chloride 0.9% 1,000 ML IV SCH (05:35)
[2017-07-06 06:20] LABS: BASO # 0.02 K/mm3 (0.0-2.0); BASO % 0.3 % (0.0-3.0); EOS # 0.1 (0.0-0.7); EOS % 1.8 % (1.5-5.0); GRAN # 5.25 (1.4-6.5); HEMATOCRIT 27.7 % (42.0-52.0); LYMPH # 1.8 (1.2-3.4); LYMPH % 23.5 % (22.0-35.0); MEAN CELL VOLUME 89.1 fl (80.0-105.0); MEAN CORPUSCULAR HEMOGLOBIN 30.2 pg (25.0-35.0); MEAN CORPUSCULAR HGB CONC 33.9 g/dl (31.0-37.0); MEAN PLATELET VOLUME 9.9 fl (7.0-11.0); MONO # 0.6 (0.1-0.6); MONO % 7.4 % (1.0-6.0); RED CELL DISTRIBUTION WIDTH 15.4 % (11.5-14.5); WHITE BLOOD COUNT 7.8 10^3/ul (4.5-11.0)
[2017-07-06 06:30] LABS: ALB/GLOB RATIO 1.2 (1.1-1.8); BILIRUBIN,TOTAL 0.4 mg/dL (0.2-1.3); CALCIUM 8.8 mg/dL (8.4-10.5); POTASSIUM 4.4 mmol/L (3.6-5.0); TOTAL PROTEIN 5.2 g/dL (5.8-8.3)
--- NOTE | 2017-07-06 07:36 | CP.PCM.PN ---
<Benito Farias - Last Filed: 07/06/17 07:46> Subjective - Date & Time of Evaluation Date of Evaluation: 07/06/17 Time of Evaluation: 06:45 - Subjective Subjective: General Surgery- Dr. Garcia Patient seen and examined at bedside this AM. no acute events overnight. Patient was transfused PRBC s/p EGD w/ gastric ulcer clip. no BM. pt denies nausea, vomiting, hematemsis, fevers, chills. Objective - Vital Signs/Intake and Output Vital Signs (last 24 hours): Temp Pulse Resp BP Pulse Ox 98.2 F 66 11 L 155/69 H 99 07/06/17 00:00 07/06/17 06:00 07/06/17 04:40 07/06/17 05:54 07/06/17 04:40 Intake and Output: 07/06/17 07/06/17 06:59 18:59 Intake Total 1775 Output Total 2400 Balance -625 - Medications Medications: Current Medications Acetaminophen (Tylenol 325mg Tab) 650 mg PO Q4H PRN PRN Reason: Fever >100.4 F Fenofibrate (Tricor) 145 mg PO DAILY [facility] Last Admin: 07/05/17 10:01 Dose: 145 mg Hydralazine HCl (Apresoline) 10 mg IVP Q6 PRN PRN Reason: Systolic Blood Pressure Last Admin: 07/05/17 17:55 Dose: 10 mg Hydralazine HCl (Apresoline) 100 mg PO Q8 [facility] Last Admin: 07/06/17 05:54 Dose: 100 mg Sodium Chloride (Sodium Chloride 0.9%) 1,000 mls @ 100 mls/hr IV .Q10H [facility] Last Admin: 07/06/17 05:35 Dose: 100 mls/hr Pantoprazole Sodium (Protonix 40mg Ivpb) 40 mg in 100 mls @ 10 mls/hr IVPB .Q10H [facility] Last Admin: 07/06/17 05:34 Dose: 10 mls/hr Insulin Human Lispro (Humalog High) 0 units SC ACHS [facility] PRN Reason: Protocol Last Admin: 07/05/17 22:00 Dose: Not Given Metoprolol Tartrate (Lopressor) 25 mg PO BID [facility] Last Admin: 07/05/17 21:10 Dose: 25 mg Ondansetron HCl (Zofran Inj) 4 mg IVP Q6H PRN PRN Reason: Nausea/Vomiting Last Admin: 07/02/17 09:34 Dose: 4 mg - Labs Labs: 07/06/17 06:00 07/06/17 06:00 PT 12.1 SECONDS (9.4-12.5) 07/01/17 23:11 INR 1.11 (0.93-1.08) H 07/01/17 23:11 APTT 27.9 Seconds (25.1-36.5) 07/01/17 23:11 - Constitutional Appears: Non-toxic, No Acute Distress - Head Exam Head Exam: ATRAUMATIC - Eye Exam Eye Exam: EOMI. absent: Scleral icterus - ENT Exam ENT Exam: Mucous Membranes Moist - Respiratory Exam Respiratory Exam: NORMAL BREATHING PATTERN. absent: Accessory Muscle Use, Respiratory Distress - Cardiovascular Exam Cardiovascular Exam: +S1, +S2. absent: Bradycardia, Tachycardia - GI/Abdominal Exam GI & Abdominal Exam: Soft. absent: Distended, Firm, Guarding, Rigid, Tenderness , Rebound Additional comments: abd tympanic - Extremities Exam Extremities Exam: absent: Calf Tenderness Additional comments: cap refil < 2 sec - Neurological Exam Neurological Exam: Alert, Awake, Oriented x3 - Psychiatric Exam Psychiatric exam: Normal Affect - Skin Skin Exam: Intact, Warm Assessment and Plan - Assessment and Plan (Free Text) Assessment: 52M w/ PUD, duodenal ulcer s/p EGD w/ epi injection and clip x2 Plan: - continue to monitor H/H - Vitals check - monitor urine output - GI/DVT ppx - further recs per Dr. Garcia surgical attending Benito Farias PGY1 <Darin Garcia - Last Filed: 07/06/17 23:04> Objective - Vital Signs/Intake and Output Vital Signs (last 24 hours): Temp Pulse Resp BP Pulse Ox 98.6 F 67 16 161/89 H 99 07/06/17 20:15 07/06/17 22:27 07/06/17 20:15 07/06/17 22:27 07/06/17 20:15 Intake and Output: 07/06/17 07/07/17 18:59 06:59 Intake Total 1150 600 Output Total 1850 200 Balance -700 400 - Medications Medications: Current Medications Acetaminophen (Tylenol 325mg Tab) 650 mg PO Q4H PRN PRN Reason: Fever >100.4 F Calcium Acetate (Phoslo) 667 mg PO WM [facility] Last Admin: 07/06/17 17:52 Dose: 667 mg Clonidine HCl (Catapres) 0.1 mg PO Q4H PRN PRN Reason: Diastolic blood pressure Fenofibrate (Tricor) 145 mg PO DAILY [facility] Last Admin: 07/06/17 10:14 Dose: 145 mg Hydralazine HCl (Apresoline) 100 mg PO Q8 [facility] Last Admin: 07/06/17 22:27 Dose: 100 mg Pantoprazole Sodium (Protonix 40mg Ivpb) 40 mg in 100 mls @ 10 mls/hr IVPB .Q10H [facility] Last Admin: 07/06/17 14:39 Dose: 10 mls/hr Insulin Human Lispro (Humalog High) 0 units SC ACHS [facility] PRN Reason: Protocol Last Admin: 07/06/17 22:02 Dose: Not Given Metoprolol Tartrate (Lopressor) 25 mg PO BID [facility] Last Admin: 07/06/17 17:52 Dose: 25 mg Nifedipine (Procardia Xl) 60 mg PO DAILY [facility] Ondansetron HCl (Zofran Inj) 4 mg IVP Q6H PRN PRN Reason: Nausea/Vomiting Last Admin: 07/02/17 09:34 Dose: 4 mg - Labs Labs: 07/06/17 12:00 07/06/17 06:00 PT 12.1 SECONDS (9.4-12.5) 07/01/17 23:11 INR 1.11 (0.93-1.08) H 07/01/17 23:11 APTT 27.9 Seconds (25.1-36.5) 07/01/17 23:11 Assessment and Plan - Assessment and Plan (Free Text) Plan: Patient was seen and examined by me. I agree with assessment and plan as per resident's note.
[2017-07-06] MEDS: Insulin Lispro (HUMAlog) HIGH Coverage SC SCH ×3 (08:39→22:02)
[2017-07-06] MEDS ORDERED: NIFEdipine 30 mg ER Tab PO SCH (10:00)
--- NOTE | 2017-07-06 10:09 | CP.CCUPN ---
<Rosales Webster - Last Filed: 07/06/17 10:30> CCU Subjective - Physician Review Subjective (Free Text): Patient seen and examined at bedside this morning. No acute overnight events or new complaints reported. Denies chest pain, palpitations, SOB, abdominal pain, nausea, vomiting. H/H remains stable this morning. Will obtain afternoon CBC and continue with protonix drip. CLD as tolerated. CCU Objective - Vital Signs / Intake & Output Intake and Output (Last 8hrs): Intake & Output 07/05/17 07/06/17 07/06/17 22:59 06:59 14:59 Intake Total 2123 1400 Output Total 450 2400 Balance 1673 -1000 Weight 190 lb Intake: IV 850 1400 Right Forearm 850 1400 Oral 420 Blood Product 603 Apheresis Rbc Cp2d As3 Lr 278 2nd Unit [id number] Red Blood Cells Cpd As1 325 Lr Unit [id number] Other 250 Apheresis Rbc Cp2d As3 Lr 200 2nd Unit [id number] Red Blood Cells Cpd As1 50 Lr Unit [id number] Output: Urine 450 2400 Urine, Voided 450 2400 Other: # Bowel Movements 0 - Physical Exam Head: Positive for: Atraumatic, Normocephalic Pupils: Positive for: PERRL Extroacular Muscles: Positive for: EOMI Conjunctiva: Positive for: Normal Mouth: Positive for: Moist Mucous Membranes Neck: Positive for: Normal Range of Motion Respiratory/Chest: Positive for: Clear to Auscultation, Good Air Exchange. Negative for: Respiratory Distress, Accessory Muscle Use Cardiovascular: Positive for: Regular Rate and Rhythm, Normal S1, S2. Negative for: Murmurs, Rub, Gallop Abdomen: Positive for: Normal Bowel Sounds. Negative for: Tenderness, Distention, Rebound, Guarding Back: Positive for: Normal Inspection Upper Extremity: Positive for: Normal Inspection. Negative for: Cyanosis, Edema Lower Extremity: Positive for: Normal Inspection. Negative for: Edema Neurological: Positive for: GCS=15, CN II-XII Intact, Speech Normal Skin: Positive for: Warm, Dry, Normal Color. Negative for: Rashes Psychiatric: Positive for: Alert, Oriented x 3, Normal Insight, Normal Concentration - Medications Active Medications: Active Medications Generic Name Dose Route Start Last Admin Trade Name Freq PRN Reason Stop Dose Admin Acetaminophen 650 mg 07/02/17 02:27 Tylenol 325mg Tab PO Q4H PRN Fever >100.4 F Fenofibrate 145 mg 07/02/17 10:00 07/05/17 10:01 Tricor PO 145 mg DAILY [facility] Administration Hydralazine HCl 10 mg 07/02/17 01:32 07/05/17 17:55 Apresoline IVP 10 mg Q6 PRN Administration Systolic Blood Pressure Hydralazine HCl 100 mg 07/05/17 14:00 07/06/17 05:54 Apresoline PO 100 mg Q8 PAM Administration Sodium Chloride 1,000 mls @ 100 mls/hr 07/05/17 16:15 07/06/17 05:35 Sodium Chloride 0.9% IV 100 mls/hr .Q10H PAM Administration Pantoprazole Sodium 40 mg in 100 mls @ 10 mls/hr 07/05/17 16:54 07/06/17 05: 34 Protonix 40mg Ivpb IVPB 10 mls/hr .Q10H PAM Administration Insulin Human Lispro 0 units 07/02/17 07:30 07/06/17 08:39 Humalog High SC Not Given ACHS [facility] Protocol Metoprolol Tartrate 25 mg 07/05/17 13:51 07/05/17 21:10 Lopressor PO 25 mg BID PAM Administration Nifedipine 30 mg 07/06/17 10:00 Procardia Xl PO DAILY [facility] Ondansetron HCl 4 mg 07/02/17 01:28 07/02/17 09:34 Zofran Inj IVP 4 mg Q6H PRN Administration Nausea/Vomiting - Patient Studies Lab Studies: Lab Studies 07/06/17 07/06/17 07/05/17 Range/Units 06:00 06:00 22:25 WBC 7.8 (4.5-11.0) 10^3/ul RBC 3.11 L (3.5-6.1) 10^6/uL Hgb 9.4 L (14.0-18.0) g/dL Hct 27.7 L (42.0-52.0) % MCV 89.1 (80.0-105.0) fl MCH 30.2 (25.0-35.0) pg MCHC 33.9 (31.0-37.0) g/dl RDW 15.4 H (11.5-14.5) % Plt Count 254 (120.0-450.0) 10^3/uL MPV 9.9 (7.0-11.0) fl Gran % 67.0 (50.0-68.0) % Lymph % (Auto) 23.5 (22.0-35.0) % [place] % (Auto) 7.4 H (1.0-6.0) % Eos % (Auto) 1.8 (1.5-5.0) % Baso % (Auto) 0.3 (0.0-3.0) % Gran # 5.25 (1.4-6.5) Lymph # 1.8 (1.2-3.4) [place] # 0.6 (0.1-0.6) Eos # 0.1 (0.0-0.7) Baso # 0.02 (0.0-2.0) K/mm3 pO2 20 L (30-55) mm/Hg VBG pH 7.36 (7.32-7.43) VBG pCO2 46.0 (40-60) VBG HCO3 26.0 (21-28) mmol/l VBG Total CO2 27.4 (22-28) mmol.L VBG O2 Sat (Calc) 48.9 (40-65) % VBG Base Excess 0.1 (0.0-2.0) mmol/L VBG Potassium 4.7 (3.6-5.2) mmol/L Sodium 140 138.0 (132-148) mmol/L Chloride 110 H 110.0 H (98-107) mmol/L Glucose 100 (75-110) mg/dl Lactate 0.5 L (0.7-2.1) mmol/L FiO2 21.0 % Potassium 4.4 (3.6-5.0) mmol/L Carbon Dioxide 22 (21-33) mmol/L Anion Gap 13 (10-20) BUN 38 H (7-21) mg/dL Creatinine 2.9 H (0.8-1.5) mg/dl Est GFR ( Amer) 28 Est GFR (Non-Af Amer) 23 Random Glucose 96 (70-110) mg/dL Calcium 8.8 (8.4-10.5) mg/dL Total Bilirubin 0.4 (0.2-1.3) mg/dL AST 20 (17-59) U/L ALT 20 (7-56) U/L Alkaline Phosphatase 34 L (38-126) U/L Total Protein 5.2 L (5.8-8.3) g/dL Albumin 2.9 L (3.0-4.8) g/dL Globulin 2.4 gm/dL Albumin/Globulin Ratio 1.2 (1.1-1.8) PTH Intact Whole Molec (14-64) pg/mL Venous Blood Potassium 4.7 (3.6-5.2) mmol/L Blood Type Antibody Screen Crossmatch BBK History Checked 07/05/17 07/05/17 07/02/17 Range/Units 22:25 10:50 19:40 WBC 7.6 D (4.5-11.0) 10^3/ul RBC 3.09 L (3.5-6.1) 10^6/uL Hgb 9.4 L D (14.0-18.0) g/dL Hct 27.7 L (42.0-52.0) % MCV 89.6 (80.0-105.0) fl MCH 30.4 (25.0-35.0) pg MCHC 33.9 (31.0-37.0) g/dl RDW 15.2 H (11.5-14.5) % Plt Count 236 (120.0-450.0) 10^3/uL MPV 9.9 (7.0-11.0) fl Gran % (50.0-68.0) % Lymph % (Auto) (22.0-35.0) % [place] % (Auto) (1.0-6.0) % Eos % (Auto) (1.5-5.0) % Baso % (Auto) (0.0-3.0) % Gran # (1.4-6.5) Lymph # (1.2-3.4) [place] # (0.1-0.6) Eos # (0.0-0.7) Baso # (0.0-2.0) K/mm3 pO2 (30-55) mm/Hg VBG pH (7.32-7.43) VBG pCO2 (40-60) VBG HCO3 (21-28) mmol/l VBG Total CO2 (22-28) mmol.L VBG O2 Sat (Calc) (40-65) % VBG Base Excess (0.0-2.0) mmol/L VBG Potassium (3.6-5.2) mmol/L Sodium (132-148) mmol/L Chloride (98-107) mmol/L Glucose (75-110) mg/dl Lactate (0.7-2.1) mmol/L FiO2 % Potassium (3.6-5.0) mmol/L Carbon Dioxide (21-33) mmol/L Anion Gap (10-20) BUN (7-21) mg/dL Creatinine (0.8-1.5) mg/dl Est GFR ( Amer) Est GFR (Non-Af Amer) Random Glucose (70-110) mg/dL Calcium (8.4-10.5) mg/dL Total Bilirubin (0.2-1.3) mg/dL AST (17-59) U/L ALT (7-56) U/L Alkaline Phosphatase (38-126) U/L Total Protein (5.8-8.3) g/dL Albumin (3.0-4.8) g/dL Globulin gm/dL Albumin/Globulin Ratio (1.1-1.8) PTH Intact Whole Molec 140 H (14-64) pg/mL Venous Blood Potassium (3.6-5.2) mmol/L Blood Type O POSITIVE Antibody Screen Negative Crossmatch See Detail BBK History Checked Patient has bt Laboratory Results - last 24 hr 07/02/17 07/05/17 07/05/17 19:40 10:50 22:25 WBC 7.6 D RBC 3.09 L Hgb 9.4 L D Hct 27.7 L MCV 89.6 MCH 30.4 MCHC 33.9 RDW 15.2 H Plt Count 236 MPV 9.9 Gran % Lymph % (Auto) [place] % (Auto) Eos % (Auto) Baso % (Auto) Gran # Lymph # [place] # Eos # Baso # pO2 VBG pH VBG pCO2 VBG HCO3 VBG Total CO2 VBG O2 Sat (Calc) VBG Base Excess VBG Potassium Sodium Chloride Glucose Lactate FiO2 Potassium Carbon Dioxide Anion Gap BUN Creatinine Est GFR ( Amer) Est GFR (Non-Af Amer) Random Glucose Calcium Total Bilirubin AST ALT Alkaline Phosphatase Total Protein Albumin Globulin Albumin/Globulin Ratio PTH Intact Whole Molec 140 H Venous Blood Potassium Blood Type O POSITIVE Antibody Screen Negative Crossmatch See Detail BBK History Checked Patient has bt 07/05/17 07/06/17 07/06/17 22:25 06:00 06:00 WBC 7.8 RBC 3.11 L Hgb 9.4 L Hct 27.7 L MCV 89.1 MCH 30.2 MCHC 33.9 RDW 15.4 H Plt Count 254 MPV 9.9 Gran % 67.0 Lymph % (Auto) 23.5 [place] % (Auto) 7.4 H Eos % (Auto) 1.8 Baso % (Auto) 0.3 Gran # 5.25 Lymph # 1.8 [place] # 0.6 Eos # 0.1 Baso # 0.02 pO2 20 L VBG pH 7.36 VBG pCO2 46.0 VBG HCO3 26.0 VBG Total CO2 27.4 VBG O2 Sat (Calc) 48.9 VBG Base Excess 0.1 VBG Potassium 4.7 Sodium 138.0 140 Chloride 110.0 H 110 H Glucose 100 Lactate 0.5 L FiO2 21.0 Potassium 4.4 Carbon Dioxide 22 Anion Gap 13 BUN 38 H Creatinine 2.9 H Est GFR ( Amer) 28 Est GFR (Non-Af Amer) 23 Random Glucose 96 Calcium 8.8 Total Bilirubin 0.4 AST 20 ALT 20 Alkaline Phosphatase 34 L Total Protein 5.2 L Albumin 2.9 L Globulin 2.4 Albumin/Globulin Ratio 1.2 PTH Intact Whole Molec Venous Blood Potassium 4.7 Blood Type Antibody Screen Crossmatch BBK History Checked Fingerstick Blood Sugar Results: 85 Critical Care Progress Note - Nutrition Nutrition: Nutrition Category Date Time Status Liquid Diet [DIET] Diets 07/06/17 Breakfast Ordered Assessment/Plan - Assessment and Plan (Free Text) Plan: 52yo male with history of diabetes, hypertension, gastroparesis, anemia and renal insufficiency presents c/o generalized malaise and weakness found secondary to active upper GI bleed. Neuro: -Awake, alert oriented x3; maintain normothermia Cardio: -Monitor and maintain MAP > 65; presently hypertensive -Nifedipine 30mg PO daily added for BP control in addition to hydralazine 100mg PO q8h -Continue with metoprolol Pulm: -Monitor and maintain SaO2> 90% -CXR reviewed GI: -Patient is s/p endoscopy with noted duodenal ulcer with non-bleeding visible vessel which was treated with 2 clips and electrocautery -Continue with protonix drip -CLD as tolerated -GI prophylaxis with protonix -Will continue to monitor H/H and transfuse as indicated Nephro: -Monitor and correct electrolyte abnormalities as indicated -BUN/Cr improving with fluids/transfusions, will continue to monitor -Nephrology following - Dr. Garza Endo: -CLD as tolerated -Monitor and maintain euglycemia with blood glucose between 140-180 -Fingersticks ACHS, Insulin sliding scale Heme: -Continuing to monitor H/H and transfuse as indicated; Hgb remains stable at 9.4 this morning. Will obtain CBC at 12pm. -Normocytic anemia likely secondary to GI bleed as well as CKD -DVT Prophylaxis with SCD's ID: -afebrile, no leukocytosis -no signs/symptoms of infection at this time Patient seen, discussed, and reviewed with attending <Chadwick Olson - Last Filed: 07/06/17 11:00> CCU Objective - Vital Signs / Intake & Output Vital Signs (Last 4 hours): Vital Signs Temp Pulse Resp BP Pulse Ox 07/06/17 10:53 97.9 F 07/06/17 10:50 86 18 100 07/06/17 10:40 90 18 100 07/06/17 10:30 92 H 23 100 07/06/17 10:20 89 20 100 07/06/17 10:16 91 H 183/91 H 07/06/17 10:15 81 183/73 H 07/06/17 10:10 90 11 L 100 07/06/17 10:00 90 11 L 183/73 H 99 07/06/17 09:50 87 24 100 07/06/17 09:40 81 15 99 07/06/17 09:30 106 H 38 H 99 07/06/17 09:20 86 14 99 07/06/17 09:10 85 11 L 100 07/06/17 09:00 189/68 H 07/06/17 08:59 91 H 15 100 07/06/17 08:50 86 16 100 07/06/17 08:40 85 18 99 07/06/17 08:30 92 H 18 99 07/06/17 08:20 83 14 100 07/06/17 08:10 82 14 99 07/06/17 08:00 186/76 H 07/06/17 07:59 85 20 100 07/06/17 07:50 82 15 100 07/06/17 07:40 76 16 100 07/06/17 07:30 81 29 H 100 07/06/17 07:20 83 16 100 07/06/17 07:10 87 44 H 100 07/06/17 07:00 79 28 H 173/82 H 100 Intake and Output (Last 8hrs): Intake & Output 07/05/17 07/06/17 07/06/17 22:59 06:59 14:59 Intake Total 2123 1400 Output Total 450 2400 Balance 1673 -1000 Weight 190 lb 201 lb Intake: IV 850 1400 Right Forearm 850 1400 Oral 420 Blood Product 603 Apheresis Rbc Cp2d As3 Lr 278 2nd Unit [id number] Red Blood Cells Cpd As1 325 Lr Unit [id number] Other 250 Apheresis Rbc Cp2d As3 Lr 200 2nd Unit [id number] Red Blood Cells Cpd As1 50 Lr Unit [id number] Output: Urine 450 2400 Urine, Voided 450 2400 Other: # Bowel Movements 0 - Medications Active Medications: Active Medications Generic Name Dose Route Start Last Admin Trade Name Freq PRN Reason Stop Dose Admin Acetaminophen 650 mg 07/02/17 02:27 Tylenol 325mg Tab PO Q4H PRN Fever >100.4 F Fenofibrate 145 mg 07/02/17 10:00 07/06/17 10:14 Tricor PO 145 mg DAILY PAM Administration Hydralazine HCl 10 mg 07/02/17 01:32 07/05/17 17:55 Apresoline IVP 10 mg Q6 PRN Administration Systolic Blood Pressure Hydralazine HCl 100 mg 07/05/17 14:00 07/06/17 05:54 Apresoline PO 100 mg Q8 PAM Administration Pantoprazole Sodium 40 mg in 100 mls @ 10 mls/hr 07/05/17 16:54 07/06/17 05: 34 Protonix 40mg Ivpb IVPB 10 mls/hr .Q10H PAM Administration Insulin Human Lispro 0 units 07/02/17 07:30 07/06/17 08:39 Humalog High SC Not Given ACHS [facility] Protocol Metoprolol Tartrate 25 mg 07/05/17 13:51 07/06/17 10:15 Lopressor PO 25 mg BID PAM Administration Nifedipine 30 mg 07/06/17 10:00 07/06/17 10:16 Procardia Xl PO 30 mg DAILY PAM Administration Ondansetron HCl 4 mg 07/02/17 01:28 07/02/17 09:34 Zofran Inj IVP 4 mg Q6H PRN Administration Nausea/Vomiting - Patient Studies Lab Studies: Lab Studies 07/06/17 07/06/17 07/05/17 Range/Units 06:00 06:00 22:25 WBC 7.8 (4.5-11.0) 10^3/ul RBC 3.11 L (3.5-6.1) 10^6/uL Hgb 9.4 L (14.0-18.0) g/dL Hct 27.7 L (42.0-52.0) % MCV 89.1 (80.0-105.0) fl MCH 30.2 (25.0-35.0) pg MCHC 33.9 (31.0-37.0) g/dl RDW 15.4 H (11.5-14.5) % Plt Count 254 (120.0-450.0) 10^3/uL MPV 9.9 (7.0-11.0) fl Gran % 67.0 (50.0-68.0) % Lymph % (Auto) 23.5 (22.0-35.0) % [place] % (Auto) 7.4 H (1.0-6.0) % Eos % (Auto) 1.8 (1.5-5.0) % Baso % (Auto) 0.3 (0.0-3.0) % Gran # 5.25 (1.4-6.5) Lymph # 1.8 (1.2-3.4) [place] # 0.6 (0.1-0.6) Eos # 0.1 (0.0-0.7) Baso # 0.02 (0.0-2.0) K/mm3 pO2 20 L (30-55) mm/Hg VBG pH 7.36 (7.32-7.43) VBG pCO2 46.0 (40-60) VBG HCO3 26.0 (21-28) mmol/l VBG Total CO2 27.4 (22-28) mmol.L VBG O2 Sat (Calc) 48.9 (40-65) % VBG Base Excess 0.1 (0.0-2.0) mmol/L VBG Potassium 4.7 (3.6-5.2) mmol/L Sodium 140 138.0 (132-148) mmol/L Chloride 110 H 110.0 H (98-107) mmol/L Glucose 100 (75-110) mg/dl Lactate 0.5 L (0.7-2.1) mmol/L FiO2 21.0 % Potassium 4.4 (3.6-5.0) mmol/L Carbon Dioxide 22 (21-33) mmol/L Anion Gap 13 (10-20) BUN 38 H (7-21) mg/dL Creatinine 2.9 H (0.8-1.5) mg/dl Est GFR ( Amer) 28 Est GFR (Non-Af Amer) 23 Random Glucose 96 (70-110) mg/dL Calcium 8.8 (8.4-10.5) mg/dL Total Bilirubin 0.4 (0.2-1.3) mg/dL AST 20 (17-59) U/L ALT 20 (7-56) U/L Alkaline Phosphatase 34 L (38-126) U/L Total Protein 5.2 L (5.8-8.3) g/dL Albumin 2.9 L (3.0-4.8) g/dL Globulin 2.4 gm/dL Albumin/Globulin Ratio 1.2 (1.1-1.8) PTH Intact Whole Molec (14-64) pg/mL Venous Blood Potassium 4.7 (3.6-5.2) mmol/L Blood Type Antibody Screen Crossmatch BBK History Checked 07/05/17 07/05/17 07/02/17 Range/Units 22:25 10:50 19:40 WBC 7.6 D (4.5-11.0) 10^3/ul RBC 3.09 L (3.5-6.1) 10^6/uL Hgb 9.4 L D (14.0-18.0) g/dL Hct 27.7 L (42.0-52.0) % MCV 89.6 (80.0-105.0) fl MCH 30.4 (25.0-35.0) pg MCHC 33.9 (31.0-37.0) g/dl RDW 15.2 H (11.5-14.5) % Plt Count 236 (120.0-450.0) 10^3/uL MPV 9.9 (7.0-11.0) fl Gran % (50.0-68.0) % Lymph % (Auto) (22.0-35.0) % [place] % (Auto) (1.0-6.0) % Eos % (Auto) (1.5-5.0) % Baso % (Auto) (0.0-3.0) % Gran # (1.4-6.5) Lymph # (1.2-3.4) [place] # (0.1-0.6) Eos # (0.0-0.7) Baso # (0.0-2.0) K/mm3 pO2 (30-55) mm/Hg VBG pH (7.32-7.43) VBG pCO2 (40-60) VBG HCO3 (21-28) mmol/l VBG Total CO2 (22-28) mmol.L VBG O2 Sat (Calc) (40-65) % VBG Base Excess (0.0-2.0) mmol/L VBG Potassium (3.6-5.2) mmol/L Sodium (132-148) mmol/L Chloride (98-107) mmol/L Glucose (75-110) mg/dl Lactate (0.7-2.1) mmol/L FiO2 % Potassium (3.6-5.0) mmol/L Carbon Dioxide (21-33) mmol/L Anion Gap (10-20) BUN (7-21) mg/dL Creatinine (0.8-1.5) mg/dl Est GFR ( Amer) Est GFR (Non-Af Amer) Random Glucose (70-110) mg/dL Calcium (8.4-10.5) mg/dL Total Bilirubin (0.2-1.3) mg/dL AST (17-59) U/L ALT (7-56) U/L Alkaline Phosphatase (38-126) U/L Total Protein (5.8-8.3) g/dL Albumin (3.0-4.8) g/dL Globulin gm/dL Albumin/Globulin Ratio (1.1-1.8) PTH Intact Whole Molec 140 H (14-64) pg/mL Venous Blood Potassium (3.6-5.2) mmol/L Blood Type O POSITIVE Antibody Screen Negative Crossmatch See Detail BBK History Checked Patient has bt Laboratory Results - last 24 hr 07/02/17 07/05/17 07/05/17 19:40 10:50 22:25 WBC 7.6 D RBC 3.09 L Hgb 9.4 L D Hct 27.7 L MCV 89.6 MCH 30.4 MCHC 33.9 RDW 15.2 H Plt Count 236 MPV 9.9 Gran % Lymph % (Auto) [place] % (Auto) Eos % (Auto) Baso % (Auto) Gran # Lymph # [place] # Eos # Baso # pO2 VBG pH VBG pCO2 VBG HCO3 VBG Total CO2 VBG O2 Sat (Calc) VBG Base Excess VBG Potassium Sodium Chloride Glucose Lactate FiO2 Potassium Carbon Dioxide Anion Gap BUN Creatinine Est GFR ( Amer) Est GFR (Non-Af Amer) Random Glucose Calcium Total Bilirubin AST ALT Alkaline Phosphatase Total Protein Albumin Globulin Albumin/Globulin Ratio PTH Intact Whole Molec 140 H Venous Blood Potassium Blood Type O POSITIVE Antibody Screen Negative Crossmatch See Detail BBK History Checked Patient has bt 07/05/17 07/06/17 07/06/17 22:25 06:00 06:00 WBC 7.8 RBC 3.11 L Hgb 9.4 L Hct 27.7 L MCV 89.1 MCH 30.2 MCHC 33.9 RDW 15.4 H Plt Count 254 MPV 9.9 Gran % 67.0 Lymph % (Auto) 23.5 [place] % (Auto) 7.4 H Eos % (Auto) 1.8 Baso % (Auto) 0.3 Gran # 5.25 Lymph # 1.8 [place] # 0.6 Eos # 0.1 Baso # 0.02 pO2 20 L VBG pH 7.36 VBG pCO2 46.0 VBG HCO3 26.0 VBG Total CO2 27.4 VBG O2 Sat (Calc) 48.9 VBG Base Excess 0.1 VBG Potassium 4.7 Sodium 138.0 140 Chloride 110.0 H 110 H Glucose 100 Lactate 0.5 L FiO2 21.0 Potassium 4.4 Carbon Dioxide 22 Anion Gap 13 BUN 38 H Creatinine 2.9 H Est GFR ( Amer) 28 Est GFR (Non-Af Amer) 23 Random Glucose 96 Calcium 8.8 Total Bilirubin 0.4 AST 20 ALT 20 Alkaline Phosphatase 34 L Total Protein 5.2 L Albumin 2.9 L Globulin 2.4 Albumin/Globulin Ratio 1.2 PTH Intact Whole Molec Venous Blood Potassium 4.7 Blood Type Antibody Screen Crossmatch BBK History Checked Critical Care Progress Note - Nutrition Nutrition: Nutrition Category Date Time Status Liquid Diet [DIET] Diets 07/06/17 Breakfast Ordered Assessment/Plan - Assessment and Plan (Free Text) Plan: Patient seen and examine don rounds with resident, agree with note with following additions/exceptions. Pt is 52yo male with PMHx of HTN, DM, anemia found to have UGIB. Currently afebrile, HD stable, comfortable, in NAD. On exam benign abd exam. labs reviewed, HH stable, 9.4, s/p 2u PRBC last night. Advanced to Clear liquid diet today. PPI drip continued. GI following. Needs better BP control, start Nifedepine 30mg daily. Follow up nephro. FS control. GI ppx, DVT ppx, SCDs. IF stable HH at noon, transfer to floor.
--- NOTE | 2017-07-06 10:37 | CP.PCM.PN ---
<Kelly Schaffer - Last Filed: 07/06/17 10:37> Subjective - Date & Time of Evaluation Date of Evaluation: 07/06/17 Time of Evaluation: 09:30 - Subjective Subjective: Seen and examined at the bedside earlier this morning, chart was reviewed. Patient had endoscopy and colonoscopy yesterday, thought to have duodenal ulcers 2 hemoclips and sclerotherapy, colon scope advanced to 80 cm, clotted blood noted,, limited view so scope not advanced beyond this point. Patient is in ICU, no reports of hematemesis or melena. Patient denies nausea, vomiting, or abdominal pain. No shortness of breath or chest pains. Objective - Vital Signs/Intake and Output Vital Signs (last 24 hours): Temp Pulse Resp BP Pulse Ox 98.2 F 91 H 11 L 183/91 H 99 07/06/17 00:00 07/06/17 10:16 07/06/17 04:40 07/06/17 10:16 07/06/17 04:40 Intake and Output: 07/06/17 07/06/17 06:59 18:59 Intake Total 1775 Output Total 2400 Balance -625 - Medications Medications: Current Medications Acetaminophen (Tylenol 325mg Tab) 650 mg PO Q4H PRN PRN Reason: Fever >100.4 F Fenofibrate (Tricor) 145 mg PO DAILY [facility] Last Admin: 07/06/17 10:14 Dose: 145 mg Hydralazine HCl (Apresoline) 10 mg IVP Q6 PRN PRN Reason: Systolic Blood Pressure Last Admin: 07/05/17 17:55 Dose: 10 mg Hydralazine HCl (Apresoline) 100 mg PO Q8 [facility] Last Admin: 07/06/17 05:54 Dose: 100 mg Sodium Chloride (Sodium Chloride 0.9%) 1,000 mls @ 100 mls/hr IV .Q10H [facility] Last Admin: 07/06/17 05:35 Dose: 100 mls/hr Pantoprazole Sodium (Protonix 40mg Ivpb) 40 mg in 100 mls @ 10 mls/hr IVPB .Q10H [facility] Last Admin: 07/06/17 05:34 Dose: 10 mls/hr Insulin Human Lispro (Humalog High) 0 units SC ACHS [facility] PRN Reason: Protocol Last Admin: 12/12/17 08:39 Dose: Not Given Metoprolol Tartrate (Lopressor) 25 mg PO BID [facility] Last Admin: 07/06/17 10:15 Dose: 25 mg Nifedipine (Procardia Xl) 30 mg PO DAILY [facility] Last Admin: 07/06/17 10:16 Dose: 30 mg Ondansetron HCl (Zofran Inj) 4 mg IVP Q6H PRN PRN Reason: Nausea/Vomiting Last Admin: 07/02/17 09:34 Dose: 4 mg - Labs Labs: 07/06/17 06:00 07/06/17 06:00 PT 12.1 SECONDS (9.4-12.5) 07/01/17 23:11 INR 1.11 (0.93-1.08) H 07/01/17 23:11 APTT 27.9 Seconds (25.1-36.5) 07/01/17 23:11 - Constitutional Appears: No Acute Distress - Head Exam Head Exam: NORMOCEPHALIC - Eye Exam Eye Exam: Normal appearance. absent: Scleral icterus - ENT Exam ENT Exam: Mucous Membranes Moist - Neck Exam Neck Exam: Normal Inspection - Respiratory Exam Respiratory Exam: NORMAL BREATHING PATTERN. absent: Respiratory Distress - Cardiovascular Exam Cardiovascular Exam: +S1, +S2 - GI/Abdominal Exam GI & Abdominal Exam: Soft, Normal Bowel Sounds. absent: Guarding, Tenderness, Organomegaly, Rebound - Extremities Exam Extremities Exam: absent: Calf Tenderness, Pedal Edema - Neurological Exam Neurological Exam: Alert, Awake, Oriented x3 - Skin Skin Exam: Dry, Warm Assessment and Plan - Assessment and Plan (Free Text) Assessment: ASSESSMENT: Severe Anemia, status post 3 units of packed RBC total GI Bleed, status post EGD, duodenal ulcers status post Hemoclip 2 with sclerotherapy, colonoscopy found to have clotted blood to 80 cm to the colon. H/O PUD DM Gastroparesis HTN Renal insufficiency Weight loss PLAN: continue to monitor h/H, for repeat CBC this afternoon continueprotonic strip for 24 hours then consider discontinuing start clear liquid diet monitor for overt GI bleed an optimal patient will need repeat colonoscopy and endoscopy Discussed with ICU team Seen and discussed w/ Dr. Lucio. <Teresita Lucio V - Last Filed: 07/06/17 19:54> Objective - Vital Signs/Intake and Output Vital Signs (last 24 hours): Temp Pulse Resp BP Pulse Ox 97.9 F 76 15 165/80 H 100 07/06/17 10:53 07/06/17 18:00 07/06/17 18:00 07/06/17 18:00 07/06/17 18:00 Intake and Output: 07/06/17 07/07/17 18:59 06:59 Intake Total 1150 Output Total 1850 Balance -700 - Medications Medications: Current Medications Acetaminophen (Tylenol 325mg Tab) 650 mg PO Q4H PRN PRN Reason: Fever >100.4 F Calcium Acetate (Phoslo) 667 mg PO WM [facility] Last Admin: 07/06/17 17:52 Dose: 667 mg Clonidine HCl (Catapres) 0.1 mg PO Q4H PRN PRN Reason: Diastolic blood pressure Fenofibrate (Tricor) 145 mg PO DAILY [facility] Last Admin: 07/06/17 10:14 Dose: 145 mg Hydralazine HCl (Apresoline) 100 mg PO Q8 [facility] Last Admin: 07/06/17 14:41 Dose: 100 mg Pantoprazole Sodium (Protonix 40mg Ivpb) 40 mg in 100 mls @ 10 mls/hr IVPB .Q10H [facility] Last Admin: 07/06/17 14:39 Dose: 10 mls/hr Insulin Human Lispro (Humalog High) 0 units SC ACHS [facility] PRN Reason: Protocol Last Admin: 07/06/17 17:50 Dose: Not Given Metoprolol Tartrate (Lopressor) 25 mg PO BID [facility] Last Admin: 07/06/17 17:52 Dose: 25 mg Nifedipine (Procardia Xl) 60 mg PO DAILY [facility] Ondansetron HCl (Zofran Inj) 4 mg IVP Q6H PRN PRN Reason: Nausea/Vomiting Last Admin: 07/02/17 09:34 Dose: 4 mg - Labs Labs: 07/06/17 12:00 07/06/17 06:00 PT 12.1 SECONDS (9.4-12.5) 07/01/17 23:11 INR 1.11 (0.93-1.08) H 07/01/17 23:11 APTT 27.9 Seconds (25.1-36.5) 07/01/17 23:11 Attending/Attestation - Attestation I have personally seen and examined this patient.: Yes I have fully participated in the care of the patient.: Yes I have reviewed all pertinent clinical information, including history, physical exam and plan: Yes Notes (Text): his is an addendum to GI progress report dictated by Kelly Schaffer APN.The patient was seen and examined earlier. Medical records, lab studies, imagings were reviewed. Last 24 hours events reviewed. Agreed with the above treatment plan as outlined in Kelly Schaffer APN's notes the with the addition of the following hemoglobin remains stable Abdomen soft no tenderness Start on clear liquid diet Advance to full liquid diet IV Protonix can be changed to by mouth Protonix to 40 mg daily We recommend to advance diet on to pured diet if Hct remains stable Would recommend the patient to start renal pured diet at least for 10-14 days then soft diet. Would recommend elective colonoscopy and repeat endoscopy in 6-8 weeks' time as an outpatient discussed with the medical and surgical team 07/06/17 19:49
[2017-07-06 12:10] LABS: BASO # 0.02 K/mm3 (0.0-2.0); BASO % 0.2 % (0.0-3.0); EOS # 0.1 (0.0-0.7); EOS % 1.3 % (1.5-5.0); GRAN # 6.29 (1.4-6.5); GRAN % 73.1 % (50.0-68.0); HEMATOCRIT 27.1 % (42.0-52.0); LYMPH # 1.5 (1.2-3.4); LYMPH % 17.3 % (22.0-35.0); MEAN CELL VOLUME 89.4 fl (80.0-105.0); MEAN CORPUSCULAR HGB CONC 33.6 g/dl (31.0-37.0); MEAN PLATELET VOLUME 9.4 fl (7.0-11.0); MONO # 0.7 (0.1-0.6); MONO % 8.1 % (1.0-6.0); RED CELL DISTRIBUTION WIDTH 15.2 % (11.5-14.5); WHITE BLOOD COUNT 8.6 10^3/ul (4.5-11.0)
[2017-07-06] MEDS ORDERED: NIFEdipine 60 mg ER Tab PO SCH (13:16)
--- NOTE | 2017-07-06 14:01 | CP.PCM.PN ---
<Miladis Pierce - Last Filed: 07/06/17 13:58> Subjective - Date & Time of Evaluation Date of Evaluation: 07/06/17 Time of Evaluation: 07:30 - Subjective Subjective: Miladis Pierce DO PGY1 - Internal Medicine Progress Note Patient seen and examined at bedside in the ICU. Patient is s/p EGD and colonoscopy yesterday, where he was found to have a duodenal ulcer with a large superficial vessel, treated with sclerotherapy and hemostatic clips. He also had a large amount of blood in his colon, despite apparent adequate prep. Patient was subsequently transfused 2u PRBC and transferred to the ICU for closer monitoring. Today, patient denies abdominal pain, nausea, vomiting, diarrhea, constipation, fever, chills, headache, lightheadedness, chest pain, shortness of breath, hematochezia, melena, hematemesis, or hemoptysis. Patient endorses a normal appetite and is requesting a diet. Objective - Vital Signs/Intake and Output Vital Signs (last 24 hours): Temp Pulse Resp BP Pulse Ox 97.9 F 86 18 183/91 H 100 07/06/17 10:53 07/06/17 10:50 07/06/17 10:50 07/06/17 10:16 07/06/17 10:50 Intake and Output: 07/06/17 07/06/17 06:59 18:59 Intake Total 1775 Output Total 2400 Balance -625 - Medications Medications: Current Medications Acetaminophen (Tylenol 325mg Tab) 650 mg PO Q4H PRN PRN Reason: Fever >100.4 F Calcium Acetate (Phoslo) 667 mg PO [facility] Clonidine HCl (Catapres) 0.1 mg PO Q4H PRN PRN Reason: Diastolic blood pressure Fenofibrate (Tricor) 145 mg PO DAILY [facility] Last Admin: 07/06/17 10:14 Dose: 145 mg Hydralazine HCl (Apresoline) 100 mg PO Q8 [facility] Last Admin: 07/06/17 05:54 Dose: 100 mg Pantoprazole Sodium (Protonix 40mg Ivpb) 40 mg in 100 mls @ 10 mls/hr IVPB .Q10H [facility] Last Admin: 07/06/17 05:34 Dose: 10 mls/hr Insulin Human Lispro (Humalog High) 0 units SC ACHS [facility] PRN Reason: Protocol Last Admin: 07/06/17 08:39 Dose: Not Given Metoprolol Tartrate (Lopressor) 25 mg PO BID [facility] Last Admin: 07/06/17 10:15 Dose: 25 mg Nifedipine (Procardia Xl) 60 mg PO DAILY [facility] Ondansetron HCl (Zofran Inj) 4 mg IVP Q6H PRN PRN Reason: Nausea/Vomiting Last Admin: 07/02/17 09:34 Dose: 4 mg - Labs Labs: 07/06/17 12:00 07/06/17 06:00 PT 12.1 SECONDS (9.4-12.5) 07/01/17 23:11 INR 1.11 (0.93-1.08) H 07/01/17 23:11 APTT 27.9 Seconds (25.1-36.5) 07/01/17 23:11 - Constitutional Appears: Non-toxic, No Acute Distress - Head Exam Head Exam: ATRAUMATIC, NORMOCEPHALIC - Eye Exam Eye Exam: EOMI, Normal appearance Additional comments: Conjunctival pallor - ENT Exam ENT Exam: Mucous Membranes Moist - Neck Exam Neck Exam: Normal Inspection - Respiratory Exam Respiratory Exam: Clear to Ausculation Bilateral, NORMAL BREATHING PATTERN - Cardiovascular Exam Cardiovascular Exam: REGULAR RHYTHM, +S1, +S2 - GI/Abdominal Exam GI & Abdominal Exam: Soft, Normal Bowel Sounds. absent: Distended, Firm, Guarding, Rigid, Tenderness, Rebound - Extremities Exam Extremities Exam: absent: Calf Tenderness, Pedal Edema - Neurological Exam Neurological Exam: Alert, Awake, Oriented x3 - Psychiatric Exam Psychiatric exam: Normal Affect, Normal Mood - Skin Skin Exam: Dry, Intact Assessment and Plan - Assessment and Plan (Free Text) Assessment: Patient is a 52 year old male, whose past medical history includes diabetes, hypertension, gastroparesis, anemia, and renal insufficiency, who presents to the emergency department complaining of generalized malaise and weakness. Plan GI Bleed - Patient is s/p EGD and Colonoscopy where he was noted to have duodenal ulcer with large superficial vessel, treated with sclerotherapy and hemostatic clips - Patient received 2u PRBC after the procedure and transferred to ICU for closer monitoring - Patient was started on Protonix drip last night; continue for 24 hours then discontinue if H&H remains stable - Continue to monitor for active bleeding 48 hours post-procedure; recheck H&H - Patient will require repeat endoscopy in the near future; including repeat colonoscopy which was aborted due to poor visualization 2/2 large amounts of blood in the colon - GI consulted- appreciate recommendations Renal Insuffiency - Cr and BUN improving - Patient followed by Dr. Garza outpatient; not currently on dialysis - Nephro on consult, appreciate recs Hx of HTN - Continue PO hydralazine and metoprolol - Patient hypertensive despite current regimen; started on nifedipine and PRN clonidine by nephrology - Hydralazine 5mg IV q6 prn SBP > 180, holding parameters- do not administer if HR is > 100 bpm Hx of Diabetes - Hold oral hypoglycemics - Continue SSI Med - fingersticks ACHS Hx of Hyperlipidemia - Continue home fenofibrate Prophylaxis - DVT ppx- scds - GI ppx- protonix Patient seen, discussed, and reviewed with attending <Wicho Lim - Last Filed: 07/06/17 16:58> Objective - Vital Signs/Intake and Output Vital Signs (last 24 hours): Temp Pulse Resp BP Pulse Ox 97.9 F 66 13 175/93 H 97 07/06/17 10:53 07/06/17 15:20 07/06/17 15:20 07/06/17 15:00 07/06/17 15:20 Intake and Output: 07/06/17 07/06/17 06:59 18:59 Intake Total 1775 Output Total 2400 Balance -625 - Medications Medications: Current Medications Acetaminophen (Tylenol 325mg Tab) 650 mg PO Q4H PRN PRN Reason: Fever >100.4 F Calcium Acetate (Phoslo) 667 mg PO WM [facility] Clonidine HCl (Catapres) 0.1 mg PO Q4H PRN PRN Reason: Diastolic blood pressure Fenofibrate (Tricor) 145 mg PO DAILY [facility] Last Admin: 07/06/17 10:14 Dose: 145 mg Hydralazine HCl (Apresoline) 100 mg PO Q8 [facility] Last Admin: 07/06/17 14:41 Dose: 100 mg Pantoprazole Sodium (Protonix 40mg Ivpb) 40 mg in 100 mls @ 10 mls/hr IVPB .Q10H [facility] Last Admin: 07/06/17 14:39 Dose: 10 mls/hr Insulin Human Lispro (Humalog High) 0 units SC ACHS [facility] PRN Reason: Protocol Last Admin: 07/06/17 08:39 Dose: Not Given Metoprolol Tartrate (Lopressor) 25 mg PO BID [facility] Last Admin: 07/06/17 10:15 Dose: 25 mg Nifedipine (Procardia Xl) 60 mg PO DAILY [facility] Ondansetron HCl (Zofran Inj) 4 mg IVP Q6H PRN PRN Reason: Nausea/Vomiting Last Admin: 07/02/17 09:34 Dose: 4 mg - Labs Labs: 07/06/17 12:00 07/06/17 06:00 PT 12.1 SECONDS (9.4-12.5) 07/01/17 23:11 INR 1.11 (0.93-1.08) H 07/01/17 23:11 APTT 27.9 Seconds (25.1-36.5) 07/01/17 23:11 Attending/Attestation - Attestation I have personally seen and examined this patient.: Yes I have fully participated in the care of the patient.: Yes I have reviewed all pertinent clinical information, including history, physical exam and plan: Yes Notes (Text): 07/06/17 16:56 Patient was seen and examined with medical device sales representative. Agreed with resident assessment and plan. Patent hemoglobin is improved.There is no active bleeding after EGD yesterday, will continue IV Protonix infusion.We will start patient on clear liquid diet. Blood pressure is running high, medications has been adjusted.We will monitor and adjust medications. Renal function are stable since 24 hour. Management plan was discussed in detail with patient Education was provided.
--- NOTE | 2017-07-06 18:23 | PN ---
DATE: 07/06/2017 SUBJECTIVE: The patient is currently seen in ICU bed 6. He is up for transfer. He has had no further bleeding overnight. His hemoglobin has remained stable. He is not requiring any further blood products. He has had no bowel movements today so far. MEDICATIONS: Medication list reviewed. The patient is on hydralazine, insulin, Lopressor, Procardia, Protonix, TriCor, Tylenol p.r.n. and Zofran p.r.n. OBJECTIVE: INTAKE/OUTPUT: Intake 3523, output 2850. VITAL SIGNS: Blood pressure is 183/91 with a heart rate of 86 and a respiratory rate of 18. Temperature is 97.9. HEENT: Shows him to be normocephalic, atraumatic. Conjunctivae are pale. Sclerae nonicteric. NECK: Supple. No neck vein distention. CHEST: Clear to auscultation and percussion. No rales. No rhonchi or wheezing. CARDIOVASCULAR: Shows a regular rate rhythm without audible murmurs, rubs or gallops. ABDOMEN: Soft. Bowel sounds normal. No rebound or guarding. No masses. No distention. EXTREMITIES: Show no lower extremity cyanosis, clubbing or edema. Lower extremity pulses are intact to 2+ bilaterally. LABORATORY DATA AND IMAGING: CBC today is white blood cell count is 8.6 with a hemoglobin of 9.1, stable. Platelet count is 245,000. Chemistries today showed a sodium of 140, potassium 4.4, chloride 110 with a CO2 of 22, BUN 38 down from a high of 93, creatinine 2.9 down from a high of 4.0. He is well within his baseline range. Glucose is 96 with a calcium of 8.8. The patient is status post transfusion of 8 units of packed red blood cells in total. ASSESSMENT: 1. Status post life-threatening upper gastrointestinal bleed. Upper endoscopy revealed a 2 duodenal ulcers with a bleeding vessel adjacent to the ulcers. The patient received cauterization of the bleeding site with clipping of the blood vessels and sclerotherapy. The patient also underwent incomplete colonoscopy which showed clotted blood in the colon. The patient remains on protein pump inhibition therapy to IV infusion. There are no plans for any surgical intervention. He will be treated medically. 2. History of acute renal failure superimposed on chronic kidney disease stage IV. The patient's BUN and creatinine are back to baseline levels. The rise in BUN and creatinine were secondary to the gastrointestinal bleeding. 3. History of hypertension. Blood pressure control is suboptimal. The patient is on hydralazine. He is also on beta-sweta therapy and calcium channel sweta therapy. I will increase Procardia to 90 mg a day and if necessary we could low-dose clonidine therapy. We should avoid angiotensin converting enzyme inhibition angiotensin receptor sweta therapy in light of his advanced renal insufficiency. 4. History of insulin dependent diabetes mellitus. The patient will continue on insulin therapy as noted above. 5. Past history of peptic ulcer disease. 6. History of hyperlipidemia. The patient will continue present medical therapy. PLAN: 1. The patient appears to have stabilized. Agree with transfer out of the ICU which will likely take place later today. 2. Discussed with ICU staff and house staff. From my standpoint, the patient's renal parameters have normalized and are back to baseline. 3. Continue to monitor labs, CBC and chemistries on a daily basis. Hoping to see no further need for blood transfusions post intervention with his endoscopy. 4. The patient is presently on a liquid diet. Once he advances to a regular diet, he should be on a renal diet. 5. The patient should start binder therapy as his phosphorus level was 4.6. This is secondary to secondary hyperparathyroidism in the setting of chronic kidney disease stage IV. Greater than 35 minutes spent in the care of this patient. Lee Paulino MD cc:
[2017-07-07] MEDS: Pantoprazole 40mg/100ml IVPB 40 MG/100 ML BAG IVPB SCH (00:03)
[2017-07-07 07:00] LABS: EOS # 0.2 (0.0-0.7); EOS % 2.4 % (1.5-5.0); GRAN # 4.66 (1.4-6.5); GRAN % 69.3 % (50.0-68.0); HEMATOCRIT 28.6 % (42.0-52.0); LYMPH # 1.2 (1.2-3.4); LYMPH % 17.6 % (22.0-35.0); MEAN CELL VOLUME 90.5 fl (80.0-105.0); MEAN CORPUSCULAR HEMOGLOBIN 30.1 pg (25.0-35.0); MEAN CORPUSCULAR HGB CONC 33.2 g/dl (31.0-37.0); MEAN PLATELET VOLUME 10.5 fl (7.0-11.0); MONO # 0.7 (0.1-0.6); MONO % 10.7 % (1.0-6.0); RED CELL DISTRIBUTION WIDTH 15.3 % (11.5-14.5); WHITE BLOOD COUNT 6.7 10^3/ul (4.5-11.0)
[2017-07-07 07:12] LABS: ALB/GLOB RATIO 1.2 (1.1-1.8); BILIRUBIN,TOTAL 0.4 mg/dL (0.2-1.3); MAGNESIUM 1.5 mg/dL (1.7-2.2); PHOSPHOROUS 3.7 mg/dL (2.5-4.5); POTASSIUM 4.1 mmol/L (3.6-5.0); TOTAL PROTEIN 5.3 g/dL (5.8-8.3)
[2017-07-07] MEDS: Insulin Lispro (HUMAlog) HIGH Coverage SC SCH ×3 (08:00→16:04)
[2017-07-07] MEDS ORDERED: Magnesium Sulfate 2 GM in Sodium Chloride 0.9% 100 ML IVPB ONE (08:18)
--- NOTE | 2017-07-07 10:39 | CP.PCM.PN ---
Subjective - Date & Time of Evaluation Date of Evaluation: 07/07/17 Time of Evaluation: 10:20 - Subjective Subjective: S&E at bedside, present. chart reviewed. No hematemsis or bleeding per rectum, no BM. Tolerating clear liquids, no N/V or abdominal pain. No acute overnight events reported. Objective - Vital Signs/Intake and Output Vital Signs (last 24 hours): Temp Pulse Resp BP Pulse Ox 98.5 F 81 20 170/85 H 99 07/07/17 06:00 07/07/17 09:27 07/07/17 06:00 07/07/17 09:27 07/07/17 06:00 Intake and Output: 07/07/17 07/07/17 06:59 18:59 Intake Total 940 Output Total 1100 Balance -160 - Medications Medications: Current Medications Acetaminophen (Tylenol 325mg Tab) 650 mg PO Q4H PRN PRN Reason: Fever >100.4 F Calcium Acetate (Phoslo) 667 mg PO WM [facility] Last Admin: 07/07/17 08:06 Dose: 667 mg Clonidine HCl (Catapres) 0.1 mg PO Q4H PRN PRN Reason: Diastolic blood pressure Fenofibrate (Tricor) 145 mg PO DAILY [facility] Last Admin: 07/07/17 09:26 Dose: 145 mg Hydralazine HCl (Apresoline) 100 mg PO Q8 [facility] Last Admin: 07/07/17 05:31 Dose: 100 mg Insulin Human Lispro (Humalog High) 0 units SC ACHS [facility] PRN Reason: Protocol Last Admin: 07/07/17 08:00 Dose: Not Given Metoprolol Tartrate (Lopressor) 25 mg PO BID [facility] Last Admin: 07/07/17 09:26 Dose: 25 mg Nifedipine (Procardia Xl) 60 mg PO DAILY [facility] Last Admin: 07/07/17 09:27 Dose: 60 mg Ondansetron HCl (Zofran Inj) 4 mg IVP Q6H PRN PRN Reason: Nausea/Vomiting Last Admin: 07/02/17 09:34 Dose: 4 mg Pantoprazole Sodium (Protonix Ec Tab) 40 mg PO 0700 [facility] - Labs Labs: 07/07/17 06:30 07/07/17 06:30 PT 12.1 SECONDS (9.4-12.5) 07/01/17 23:11 INR 1.11 (0.93-1.08) H 07/01/17 23:11 APTT 27.9 Seconds (25.1-36.5) 07/01/17 23:11 - Constitutional Appears: No Acute Distress - Eye Exam Eye Exam: Normal appearance. absent: Scleral icterus - ENT Exam ENT Exam: Mucous Membranes Moist - Neck Exam Neck Exam: Normal Inspection - Respiratory Exam Respiratory Exam: NORMAL BREATHING PATTERN. absent: Rales, Wheezes, Respiratory Distress - Cardiovascular Exam Cardiovascular Exam: +S1, +S2 - GI/Abdominal Exam GI & Abdominal Exam: Soft, Normal Bowel Sounds. absent: Guarding, Tenderness, Rebound - Extremities Exam Extremities Exam: absent: Calf Tenderness, Pedal Edema - Neurological Exam Neurological Exam: Alert, Awake, Oriented x3 - Skin Skin Exam: Dry, Warm Assessment and Plan - Assessment and Plan (Free Text) Assessment: ASSESSMENT: Severe Anemia, status post 3 units of packed RBC total GI Bleed, status post EGD, duodenal ulcers status post Hemoclip 2 with sclerotherapy, colonoscopy found to have clotted blood to 80 cm to the colon. H/O PUD DM Gastroparesis HTN Renal insufficiency Weight loss PLAN: continue to monitor h/H protonix 40 mg daily and continue on discharge advance to full liquids, then puree diet for 10-14 days then soft diet monitor for overt GI bleed WIll need repeat colonoscopy and endoscopy in 6-8 weeks to FU ulcers and colon. Discuss w/ patient and at bedside, Fu in outpatient office 2-3 weeks, call sooner if indicated, continue PPI, and puree diet. Discuss with Dr. Zarate from medical team Seen and discussed w/ Dr. Lucio.
--- NOTE | 2017-07-07 12:28 | CP.PCM.PN ---
<HariniOctavio - Last Filed: 07/07/17 12:20> Subjective - Date & Time of Evaluation Date of Evaluation: 07/07/17 Time of Evaluation: 12:21 - Subjective Subjective: Surgery Progress Note for Dr. Garcia Pt seen and examined at bedside. No acute overnight events. Pt h/h stable, no transfusions required overnight. Pt denied CP, SOB, nausea, vomiting, abdominal pain, melena, hematochezia, fever, chills, PATTON, or dizziness. Objective - Vital Signs/Intake and Output Vital Signs (last 24 hours): Temp Pulse Resp BP Pulse Ox 98.5 F 77 20 170/85 H 99 07/07/17 06:00 07/07/17 10:00 07/07/17 06:00 07/07/17 09:27 07/07/17 06:00 Intake and Output: 07/07/17 07/07/17 06:59 18:59 Intake Total 940 Output Total 1100 Balance -160 - Medications Medications: Current Medications Acetaminophen (Tylenol 325mg Tab) 650 mg PO Q4H PRN PRN Reason: Fever >100.4 F Calcium Acetate (Phoslo) 667 mg PO WM [facility] Last Admin: 07/07/17 12:06 Dose: 667 mg Clonidine HCl (Catapres) 0.1 mg PO Q4H PRN PRN Reason: Diastolic blood pressure Fenofibrate (Tricor) 145 mg PO DAILY [facility] Last Admin: 07/07/17 09:26 Dose: 145 mg Hydralazine HCl (Apresoline) 100 mg PO Q8 [facility] Last Admin: 07/07/17 05:31 Dose: 100 mg Insulin Human Lispro (Humalog High) 0 units SC ACHS [facility] PRN Reason: Protocol Last Admin: 07/07/17 12:06 Dose: 2 units Metoprolol Tartrate (Lopressor) 25 mg PO BID [facility] Last Admin: 07/07/17 09:26 Dose: 25 mg Nifedipine (Procardia Xl) 60 mg PO DAILY [facility] Last Admin: 07/07/17 09:27 Dose: 60 mg Ondansetron HCl (Zofran Inj) 4 mg IVP Q6H PRN PRN Reason: Nausea/Vomiting Last Admin: 07/02/17 09:34 Dose: 4 mg Pantoprazole Sodium (Protonix Ec Tab) 40 mg PO 0700 [facility] - Labs Labs: 07/07/17 06:30 07/07/17 06:30 PT 12.1 SECONDS (9.4-12.5) 07/01/17 23:11 INR 1.11 (0.93-1.08) H 07/01/17 23:11 APTT 27.9 Seconds (25.1-36.5) 07/01/17 23:11 - Constitutional Appears: No Acute Distress - Head Exam Head Exam: NORMAL INSPECTION - Eye Exam Eye Exam: Normal appearance - ENT Exam ENT Exam: Normal Exam - Respiratory Exam Respiratory Exam: NORMAL BREATHING PATTERN. absent: Accessory Muscle Use, Respiratory Distress - Cardiovascular Exam Cardiovascular Exam: RRR. absent: Gallop, Rubs, Murmur - GI/Abdominal Exam GI & Abdominal Exam: Soft. absent: Distended, Guarding, Tenderness, Rebound - Extremities Exam Extremities Exam: Normal Inspection - Neurological Exam Neurological Exam: Alert, Awake, Oriented x3 - Skin Skin Exam: Dry, Intact, Normal Color, Warm Assessment and Plan - Assessment and Plan (Free Text) Assessment: 52M w/ PUD, duodenal ulcer s/p EGD w/ epi injection and clip x2 Plan: - No surgical intervention at this time - H/H and vitals stable, cont to monitor - Cont to monitor urine output - Encourage OOB - GI/DVT ppx - DW Dr. Jose Schuler, PGY1 <Darin Garcia - Last Filed: 07/07/17 17:24> Objective - Vital Signs/Intake and Output Vital Signs (last 24 hours): Temp Pulse Resp BP Pulse Ox 98.6 F 79 18 137/86 99 07/07/17 12:00 07/07/17 17:11 07/07/17 12:00 07/07/17 17:11 07/07/17 06:00 Intake and Output: 07/07/17 07/07/17 06:59 18:59 Intake Total 940 Output Total 1100 Balance -160 - Medications Medications: Current Medications Acetaminophen (Tylenol 325mg Tab) 650 mg PO Q4H PRN PRN Reason: Fever >100.4 F Calcium Acetate (Phoslo) 667 mg PO [facility] Last Admin: 07/07/17 17:11 Dose: 667 mg Clonidine HCl (Catapres) 0.1 mg PO Q4H PRN PRN Reason: Diastolic blood pressure Fenofibrate (Tricor) 145 mg PO DAILY [facility] Last Admin: 07/07/17 09:26 Dose: 145 mg Hydralazine HCl (Apresoline) 100 mg PO Q8 [facility] Last Admin: 07/07/17 14:35 Dose: 100 mg Insulin Human Lispro (Humalog High) 0 units SC ACHS [facility] PRN Reason: Protocol Last Admin: 07/07/17 16:04 Dose: Not Given Metoprolol Tartrate (Lopressor) 25 mg PO BID [facility] Last Admin: 07/07/17 17:11 Dose: 25 mg Nifedipine (Procardia Xl) 90 mg PO DAILY [facility] Ondansetron HCl (Zofran Inj) 4 mg IVP Q6H PRN PRN Reason: Nausea/Vomiting Last Admin: 07/02/17 09:34 Dose: 4 mg Pantoprazole Sodium (Protonix Ec Tab) 40 mg PO 0700 [facility] - Labs Labs: 07/07/17 06:30 07/07/17 06:30 PT 12.1 SECONDS (9.4-12.5) 07/01/17 23:11 INR 1.11 (0.93-1.08) H 07/01/17 23:11 APTT 27.9 Seconds (25.1-36.5) 07/01/17 23:11 Assessment and Plan - Assessment and Plan (Free Text) Plan: Patient was seen, evaluated and examined by me. I agree with the assessment and plan as per the resident's note.
[2017-07-07] MEDS ORDERED: Darbepoetin Alfa 60 mcg/ml Inj SC ONE (12:54)
[2017-07-07] MEDS ORDERED: Magnesium Sulfate 1 gm in D5W 1 GM/100 ML BAG IVPB ONE (12:54)
[2017-07-07] MEDS ORDERED: NIFEdipine 90 mg ER Tab PO SCH (12:55)
--- NOTE | 2017-07-07 15:10 | PN ---
DATE: 07/07/2017 SUBJECTIVE: The patient is seen, lying in bed. He is awake. He is alert. He is comfortable. He denies any abdominal pain. He denies any nausea, vomiting. Denies any bowel movement. He denies any melena. PHYSICAL EXAMINATION: GENERAL: A middle-aged male, lying in bed. VITAL SIGNS: Blood pressure 170/85, heart rate 81, respiratory rate 20, temperature 98.5. HEENT: Normocephalic, atraumatic, positive pallor. NECK: Supple, no JVD. LUNGS: Bilateral equal air entry, no rales. CARDIAC: S1 and S2. Regular rate and rhythm, no murmur, no rub. ABDOMEN: Soft, nondistended, nontender. Bowel sounds present. EXTREMITIES: No lower extremity edema. INTAKE AND OUTPUT: 2090/2950. LABORATORY DATA: WBC 6.5, hemoglobin 9.5, hematocrit 28.6, platelets 277. Sodium 137, potassium 4.1, chloride 107, CO2 of 22, BUN 30, creatinine 2.9, glucose 97, calcium 9.0, phosphorus 3.7, magnesium 1.5, albumin 2.9. CURRENT MEDICATIONS: Apresoline, Catapres p.r.n., Humalog, Lopressor 25 mg b.i.d., PhosLo, Procardia XL 60, Protonix, fenofibrate, and Zofran. ASSESSMENT: 1. Acute gastrointestinal bleed, severe life-threatening anemia. 2. Acute kidney injury superimposed on chronic kidney disease stage III/IV, resolving acute kidney injury. 3. Severe hypertension. 4. Hcn-qsawoyl-skzfrvesh diabetes mellitus. 5. Severe anemia. 6. Secondary hyperparathyroidism. 7. Hyperphosphatemia. PLAN: 1. Increase Procardia XL to 90 mg daily. 2. Monitor H and H closely. 3. Replace magnesium, monitor fingersticks, close followup. Zandra Garza MD
--- NOTE | 2017-07-07 16:38 | CP.PCM.DIS ---
<KariMiladis - Last Filed: 07/07/17 16:14> Provider - Provider Date of Admission: 07/02/17 00:50 Attending physician: Wicho Lim MD Primary care physician: Tera Young MD Consults: GI: Khadijah Nephro: Kayla Surgery: Codey Critical Care: Destiny Time Spent in preparation of Discharge (in minutes): 55 Diagnosis - Discharge Diagnosis (1) Duodenal ulcer Status: Acute (2) Renal insufficiency Status: Acute (3) Severe anemia Status: Acute (4) Syncope Status: Acute (5) Uncontrolled diabetes mellitus Status: Chronic Priority: High (6) Uncontrolled hypertension Status: Chronic Priority: High Hospital Course - Lab Results Lab Results: Micro Results 07/05/17 17:40 Naris MRSA Culture (Admit) - Final MRSA NOT DETECTED Most Recent Lab Values WBC 6.7 10^3/ul (4.5-11.0) D 07/07/17 06:30 RBC 3.16 10^6/uL (3.5-6.1) L 07/07/17 06:30 Hgb 9.5 g/dL (14.0-18.0) L 07/07/17 06:30 Hct 28.6 % (42.0-52.0) L 07/07/17 06:30 MCV 90.5 fl (80.0-105.0) 07/07/17 06:30 MCH 30.1 pg (25.0-35.0) 07/07/17 06:30 MCHC 33.2 g/dl (31.0-37.0) 07/07/17 06:30 RDW 15.3 % (11.5-14.5) H 07/07/17 06:30 Plt Count 277 10^3/uL (120.0-450.0) 07/07/17 06:30 MPV 10.5 fl (7.0-11.0) 07/07/17 06:30 Gran % 69.3 % (50.0-68.0) H 07/07/17 06:30 Lymph % (Auto) 17.6 % (22.0-35.0) L 07/07/17 06:30 [place] % (Auto) 10.7 % (1.0-6.0) H 07/07/17 06:30 Eos % (Auto) 2.4 % (1.5-5.0) 07/07/17 06:30 Baso % (Auto) 0.0 % (0.0-3.0) 07/07/17 06:30 Gran # 4.66 (1.4-6.5) 07/07/17 06:30 Lymph # 1.2 (1.2-3.4) 07/07/17 06:30 [place] # 0.7 (0.1-0.6) H 07/07/17 06:30 Eos # 0.2 (0.0-0.7) 07/07/17 06:30 Baso # 0.00 K/mm3 (0.0-2.0) 07/07/17 06:30 PT 12.1 SECONDS (9.4-12.5) 07/01/17 23:11 INR 1.11 (0.93-1.08) H 07/01/17 23:11 APTT 27.9 Seconds (25.1-36.5) 07/01/17 23:11 pO2 20 mm/Hg (30-55) L 07/05/17 22:25 VBG pH 7.36 (7.32-7.43) 07/05/17 22:25 VBG pCO2 46.0 (40-60) 07/05/17 22:25 VBG HCO3 26.0 mmol/l (21-28) 07/05/17 22:25 VBG Total CO2 27.4 mmol.L (22-28) 07/05/17 22:25 VBG O2 Sat (Calc) 48.9 % (40-65) 07/05/17 22:25 VBG Base Excess 0.1 mmol/L (0.0-2.0) 07/05/17 22:25 VBG Potassium 4.7 mmol/L (3.6-5.2) 07/05/17 22:25 Sodium 138.0 mmol/L (132-148) 07/05/17 22:25 Chloride 110.0 mmol/L (98-107) H 07/05/17 22:25 Glucose 100 mg/dl (75-110) 07/05/17 22:25 Lactate 0.5 mmol/L (0.7-2.1) L 07/05/17 22:25 FiO2 21.0 % 07/05/17 22:25 Sodium 137 mmol/L (132-148) 07/07/17 06:30 Potassium 4.1 mmol/L (3.6-5.0) 07/07/17 06:30 Chloride 107 mmol/L (98-107) 07/07/17 06:30 Carbon Dioxide 22 mmol/L (21-33) 07/07/17 06:30 Anion Gap 13 (10-20) 07/07/17 06:30 BUN 30 mg/dL (7-21) H 07/07/17 06:30 Creatinine 2.9 mg/dl (0.8-1.5) H 07/07/17 06:30 Est GFR ( Amer) 28 07/07/17 06:30 Est GFR (Non-Af Amer) 23 07/07/17 06:30 POC Glucose (mg/dL) 180 mg/dL (65-110) H 07/07/17 11:40 Random Glucose 97 mg/dL (70-110) 07/07/17 06:30 Calcium 9.0 mg/dL (8.4-10.5) 07/07/17 06:30 Phosphorus 3.7 mg/dL (2.5-4.5) 07/07/17 06:30 Magnesium 1.5 mg/dL (1.7-2.2) L 07/07/17 06:30 Iron 179 ug/dL (45-180) 07/02/17 19:40 TIBC 372 ug/dL (261-462) 07/02/17 19:40 % Saturation 48 % (20-55) 07/02/17 19:40 Ferritin 178.0 ng/mL 07/02/17 19:40 Total Bilirubin 0.4 mg/dL (0.2-1.3) 07/07/17 06:30 AST 27 U/L (17-59) 07/07/17 06:30 ALT 26 U/L (7-56) 07/07/17 06:30 Alkaline Phosphatase 33 U/L (38-126) L 07/07/17 06:30 Lactate Dehydrogenase 255 U/L (333-699) L 07/01/17 23:11 Total Creatine Kinase 44 U/L (35-230) 07/01/17 23:11 Troponin I 0.03 ng/mL 07/01/17 23:11 Total Protein 5.3 g/dL (5.8-8.3) L 07/07/17 06:30 Albumin 2.9 g/dL (3.0-4.8) L 07/07/17 06:30 Globulin 2.4 gm/dL 07/07/17 06:30 Albumin/Globulin Ratio 1.2 (1.1-1.8) 07/07/17 06:30 PTH Intact Whole Molec 140 pg/mL (14-64) H 07/02/17 19:40 Venous Blood Potassium 4.7 mmol/L (3.6-5.2) 07/05/17 22:25 Blood Type O POSITIVE 07/05/17 10:50 Antibody Screen Negative 07/05/17 10:50 Crossmatch See Detail 07/05/17 10:50 BBK History Checked Patient has bt 07/05/17 10:50 - Hospital Course Hospital Course: Patient is a 52 year old male, whose past medical history includes diabetes, hypertension, gastroparesis, anemia, and renal insufficiency, who initially presented to the emergency department complaining of generalized malaise and weakness. In the ER, he was noted to have a severe anemia and melena. The patient was transfused total of 8 units of blood during his hospitalization, 4 part of his initial stabilization, two more prior to endoscopy, and 2 more afterwards. The patient eventually went for EGD and colonoscopy where he was found to have a duodenal ulcer with a superficial vessel, and on colonoscopy was noted to have a large amount of dark blood in the entireity of his distal colon. Colonoscopy had to be aborted due to poor visualization. The ulcer was treated with electrocoagulation and hemostatic clipping. The patient's H&H remained stable after his procedure, and he tolerated a liquid diet, followed by a pureed diet. His hospitalization was also complicated by uncontrolled hypertension, for which his medications were adjusted, before finally controlling his blood pressure on oral antihypertensives without the need for PRN medications. Today, the patient feels well overall, with no particular complaints. He denies any CP, SOB, cough, abdominal pain, nausea, vomiting, hematochezia, melena, hemoptysis, or hematemesis. He was given thorough instructions on follow up with all his physicians, as well as for his medication regimen. All questions were answered to his satisfaction, and he was discharged to home. Discharge Exam - Head Exam Head Exam: NORMAL INSPECTION - Eye Exam Eye Exam: EOMI, Normal appearance, PERRL - ENT Exam ENT Exam: Mucous Membranes Moist - Respiratory Exam Respiratory Exam: Clear to PA & Lateral, NORMAL BREATHING PATTERN - Cardiovascular Exam Cardiovascular Exam: REGULAR RHYTHM, +S1, +S2 - GI/Abdominal Exam GI & Abdominal Exam: Normal Bowel Sounds, Soft. absent: Firm, Guarding, Rigid, Tenderness - Extremities Exam Extremities exam: normal inspection - Neurological Exam Neurological exam: Alert, Oriented x3 - Psychiatric Exam Psychiatric exam: Normal Affect, Normal Mood - Skin Skin Exam: Dry, Intact, Normal Color Discharge Plan - Discharge Medications Prescriptions: Calcium Acetate [Phoslo] 667 mg PO WM #30 tab NIFEdipine ER [Procardia XL] 90 mg PO DAILY #30 ter Pantoprazole [Protonix EC Tab] 40 mg PO 0700 #30 ect - Follow Up Plan Condition: STABLE Disposition: DISCHARGED TO HOME CARE Instructions: Syncope (DC), Anemia (DC) Additional Instructions: 1. Continue eating a pureed diet for the next ten days, then a soft diet for two more weeks; avoid eating hard, crunchy, or chewy things 2. Avoid all NSAIDS (ibuprofen, naproxen, meloxicam, diclofenac, aspirin, etc) indefinitely 3. Continue taking the protonix 40mg once daily, 30-60 minutes before your first meal of the day 4. Start taking Nifedipine 90mg once daily, in addition to your old metoprolol and hydralazine. Discontinue other blood pressure medications you may be taking at home 5. Continue taking your insulin as prescribed 6. Start taking phoslo, three times daily with meals 7. Follow up with your primary care doctor within one week, to discuss all the new changes 8. Follow up with Dr. Lucio in 2-3 weeks, regarding CT imaging findings, GI bleed, and repeat endoscopy planning 9. Follow up with Dr. Garza as indicated, for continued monitoring of your renal function 10. If you see any black, tarry stools, blood in your stool, or if you start vomiting blood, contact your PCP immediately or return to the ER 11. For any new or worsening concerns, contact your PCP immediately or return to the ER Referrals: Tera Yougn MD [Primary Care Provider] - Zandra Garza MD [Staff Provider] - Teresita Lucio MD [Medical Doctor] - <Wicho Lim - Last Filed: 07/08/17 15:31> Provider - Provider Date of Admission: 07/02/17 00:50 Attending physician: Wicho Lim MD Primary care physician: Tera Young MD Hospital Course - Lab Results Lab Results: Micro Results 07/05/17 17:40 Naris MRSA Culture (Admit) - Final MRSA NOT DETECTED Most Recent Lab Values WBC 6.7 10^3/ul (4.5-11.0) D 07/07/17 06:30 RBC 3.16 10^6/uL (3.5-6.1) L 07/07/17 06:30 Hgb 9.5 g/dL (14.0-18.0) L 07/07/17 06:30 Hct 28.6 % (42.0-52.0) L 07/07/17 06:30 MCV 90.5 fl (80.0-105.0) 07/07/17 06:30 MCH 30.1 pg (25.0-35.0) 07/07/17 06:30 MCHC 33.2 g/dl (31.0-37.0) 07/07/17 06:30 RDW 15.3 % (11.5-14.5) H 07/07/17 06:30 Plt Count 277 10^3/uL (120.0-450.0) 07/07/17 06:30 MPV 10.5 fl (7.0-11.0) 07/07/17 06:30 Gran % 69.3 % (50.0-68.0) H 07/07/17 06:30 Lymph % (Auto) 17.6 % (22.0-35.0) L 07/07/17 06:30 Clarion % (Auto) 10.7 % (1.0-6.0) H 07/07/17 06:30 Eos % (Auto) 2.4 % (1.5-5.0) 07/07/17 06:30 Baso % (Auto) 0.0 % (0.0-3.0) 07/07/17 06:30 Gran # 4.66 (1.4-6.5) 07/07/17 06:30 Lymph # 1.2 (1.2-3.4) 07/07/17 06:30 Clarion # 0.7 (0.1-0.6) H 07/07/17 06:30 Eos # 0.2 (0.0-0.7) 07/07/17 06:30 Baso # 0.00 K/mm3 (0.0-2.0) 07/07/17 06:30 PT 12.1 SECONDS (9.4-12.5) 07/01/17 23:11 INR 1.11 (0.93-1.08) H 07/01/17 23:11 APTT 27.9 Seconds (25.1-36.5) 07/01/17 23:11 pO2 20 mm/Hg (30-55) L 07/05/17 22:25 VBG pH 7.36 (7.32-7.43) 07/05/17 22:25 VBG pCO2 46.0 (40-60) 07/05/17 22:25 VBG HCO3 26.0 mmol/l (21-28) 07/05/17 22:25 VBG Total CO2 27.4 mmol.L (22-28) 07/05/17 22:25 VBG O2 Sat (Calc) 48.9 % (40-65) 07/05/17 22:25 VBG Base Excess 0.1 mmol/L (0.0-2.0) 07/05/17 22:25 VBG Potassium 4.7 mmol/L (3.6-5.2) 07/05/17 22:25 Sodium 138.0 mmol/L (132-148) 07/05/17 22:25 Chloride 110.0 mmol/L (98-107) H 07/05/17 22:25 Glucose 100 mg/dl (75-110) 07/05/17 22:25 Lactate 0.5 mmol/L (0.7-2.1) L 07/05/17 22:25 FiO2 21.0 % 07/05/17 22:25 Sodium 137 mmol/L (132-148) 07/07/17 06:30 Potassium 4.1 mmol/L (3.6-5.0) 07/07/17 06:30 Chloride 107 mmol/L (98-107) 07/07/17 06:30 Carbon Dioxide 22 mmol/L (21-33) 07/07/17 06:30 Anion Gap 13 (10-20) 07/07/17 06:30 BUN 30 mg/dL (7-21) H 07/07/17 06:30 Creatinine 2.9 mg/dl (0.8-1.5) H 07/07/17 06:30 Est GFR ( Amer) 28 07/07/17 06:30 Est GFR (Non-Af Amer) 23 07/07/17 06:30 POC Glucose (mg/dL) 131 mg/dL (65-110) H 07/07/17 16:03 Random Glucose 97 mg/dL (70-110) 07/07/17 06:30 Calcium 9.0 mg/dL (8.4-10.5) 07/07/17 06:30 Phosphorus 3.7 mg/dL (2.5-4.5) 07/07/17 06:30 Magnesium 1.5 mg/dL (1.7-2.2) L 07/07/17 06:30 Iron 179 ug/dL (45-180) 07/02/17 19:40 TIBC 372 ug/dL (261-462) 07/02/17 19:40 % Saturation 48 % (20-55) 07/02/17 19:40 Ferritin 178.0 ng/mL 07/02/17 19:40 Total Bilirubin 0.4 mg/dL (0.2-1.3) 07/07/17 06:30 AST 27 U/L (17-59) 07/07/17 06:30 ALT 26 U/L (7-56) 07/07/17 06:30 Alkaline Phosphatase 33 U/L (38-126) L 07/07/17 06:30 Lactate Dehydrogenase 255 U/L (333-699) L 07/01/17 23:11 Total Creatine Kinase 44 U/L (35-230) 07/01/17 23:11 Troponin I 0.03 ng/mL 07/01/17 23:11 Total Protein 5.3 g/dL (5.8-8.3) L 07/07/17 06:30 Albumin 2.9 g/dL (3.0-4.8) L 07/07/17 06:30 Globulin 2.4 gm/dL 07/07/17 06:30 Albumin/Globulin Ratio 1.2 (1.1-1.8) 07/07/17 06:30 PTH Intact Whole Molec 140 pg/mL (14-64) H 07/02/17 19:40 Venous Blood Potassium 4.7 mmol/L (3.6-5.2) 07/05/17 22:25 Blood Type O POSITIVE 07/05/17 10:50 Antibody Screen Negative 07/05/17 10:50 Crossmatch See Detail 07/05/17 10:50 BBK History Checked Patient has bt 07/05/17 10:50 Attending/Attestation - Attestation I have personally seen and examined this patient.: Yes I have fully participated in the care of the patient.: Yes I have reviewed all pertinent clinical information, including history, physical exam and plan: Yes Notes (Text): 07/08/17 15:16 Patient was seen and examined with general medical practitioner. 52 year old male with past medical history of hypertension, diabetes and CKD who is admitted for symptomatic anemia. He was found to have significant anemia with hemoglobin of 4.0. Patient underwent EGD and Colonoscopy.EGD showed duodenal ulcer with visible vessel and active bleeding.Patient HAD clipping and cauterization of bleeding vessel, she was started on PPI drip,was monitored in ICU.Hemoglobin remain stable after EGD.He has been started on oral PPI.Patient has been advised not to take NSAID or alcohol .He will follow up with GI in 4 weeks. Creatinin is 2.9 stable since 48 hour.He will follow up with Nephrology. Management plan was discussed in detail with patient Education was provided. 07/08/17 15:29
[2017-07-07 17:13] VITALS: BP 137/86
[2017-07-07 17:57] VITALS: PULSE 72; RESP 20; TEMP 97.2; O2SAT 100
[2017-07-08] MEDS ORDERED: Pantoprazole 40 mg EC Tab PO SCH (07:00)
== END 2017-07-07 17:56 | disposition home health service (06) | DRG 378 ==
LOC: ED 22:39 → ERH 07-02 00:50 → 3RSO 07-02 07:29 → ICU 07-05 17:39 → 3RSO 07-06 20:34
PROVIDERS: ADMIT Internal Medicine; ATTEND Internal Medicine
PROC: 30233N1 Transfusion of Nonautologous Red Blood Cells into Peripheral Vein, Percutaneous Approach (ICD-10-PCS; 2017-07-02)
PROC: 0DB68ZX Excision of Stomach, Via Natural or Artificial Opening Endoscopic, Diagnostic (ICD-10-PCS; principal; 2017-07-05 15:15)
PROC: 0W3P8ZZ Control Bleeding in Gastrointestinal Tract, Via Natural or Artificial Opening Endoscopic (ICD-10-PCS; 2017-07-05 15:15)
PROC: 3E0G8GC Introduction of Other Therapeutic Substance into Upper GI, Via Natural or Artificial Opening Endoscopic (ICD-10-PCS; 2017-07-05 15:15)
PROC: 0DJD8ZZ Inspection of Lower Intestinal Tract, Via Natural or Artificial Opening Endoscopic (ICD-10-PCS; 2017-07-05 15:15)
DX: K26.4 Chronic or unspecified duodenal ulcer with hemorrhage (principal); K63.3 Ulcer of intestine; E11.22 Type 2 diabetes mellitus with diabetic chronic kidney disease; N17.9 Acute kidney failure, unspecified; K31.84 Gastroparesis; E11.43 Type 2 diabetes mellitus with diabetic autonomic (poly)neuropathy; E83.39 Other disorders of phosphorus metabolism; N18.4 Chronic kidney disease, stage 4 (severe); N25.81 Secondary hyperparathyroidism of renal origin; D62 Acute posthemorrhagic anemia; D63.1 Anemia in chronic kidney disease; E11.65 Type 2 diabetes mellitus with hyperglycemia; E78.5 Hyperlipidemia, unspecified; F12.90 Cannabis use, unspecified, uncomplicated; F17.200 Nicotine dependence, unspecified, uncomplicated; I13.10 Hypertensive heart and chronic kidney disease without heart failure, with stage 1 through stage 4 chronic kidney disease, or unspecified chronic kidney disease; Z79.4 Long term (current) use of insulin; K25.9 Gastric ulcer, unspecified as acute or chronic, without hemorrhage or perforation; Z82.49 Family history of ischemic heart disease and other diseases of the circulatory system; K64.8 Other hemorrhoids; D64.9 Anemia, unspecified; R55 Syncope and collapse; R53.1 Weakness; K29.50 Unspecified chronic gastritis without bleeding

== ENCOUNTER 2017-07-09 12:31 | Observation (INO) | payer OTHER ==
[2017-07-09 13:03] VITALS: BMI 25.7
[2017-07-09] MEDS ORDERED: Sodium Chloride 0.9% 1,000 ML IV STA (13:19)
--- NOTE | 2017-07-09 13:19 | ED PDOC ---
Arrival/HPI - General Chief Complaint: GI Problem Time Seen by Provider: 07/09/17 12:41 Historian: Patient - History of Present Illness Narrative History of Present Illness (Text): 07/09/17 13:18 Emery Hoang is a 52 year old male, whose past medical history includes diabetes, hypertension, gastroparesis, anemia, and renal insufficiency, who presents to the Emergency department complaining of blood in stool since today. Patient informs dark stool for the past two bowel movements. Patient was recently seen by Dr. Lucio for upper GI bleed and had endoscopy for ulcer. Patient was discharged after treatment. Patient denies any chest pain, shortness of breath, vomiting, abdominal pain, fever, chills or any other complaints. Time/Duration: 24 hours Symptom Course: Unchanged Activities at Onset: Light Context: Home Past Medical History - Provider Review Nursing Documentation Reviewed: Yes - Infectious Disease Hx of Infectious Diseases: None - Cardiac Hx Hypertension: Yes - Pulmonary Hx Respiratory Disorders: No Hx Asthma: No Hx Bronchitis: No Hx Chronic Obstructive Pulmonary Disease (COPD): No Hx Emphysema: No Hx Pneumonia: No Hx Respiratory Aspiration: No Hx Respiratory Tract Infection: No Hx Sleep Apnea: No Hx Tuberculosis: No - Neurological Hx Neurological Disorder: No Hx Alzheimer's Disease: No HX Cerebrovascular Accident: No Hx Dementia: No Hx Dizziness: No Hx Meningitis: No Hx Migraine: No Hx Parkinson's Disease: No Hx Seizures: No Hx Transient Ischemic Attacks (TIA): No - HEENT Hx HEENT Disorder: No Hx Blind: No Hx Cataracts: No Hx Deafness: No Hx Difficulty Chewing: No Hx Epistaxis: No Hx Glaucoma: No Hx Macular Degeneration: No - Renal Hx Renal Disorder: Yes Hx Dialysis: No Hx Kidney Stones: No Hx Neurogenic Bladder: No Hx Pyelonephritis: No Hx Renal Cancer: No Hx Renal Failure: No - Endocrine/Metabolic Hx Diabetes Mellitus Type 2: Yes - Hematological/Oncological Hx Blood Transfusions: Yes (PRESENTLY) Hx Blood Transfusion Reaction: No - Integumentary Hx Dermatological Disorder: No Hx Basal Cell Carcinoma: No Hx Eczema: No Hx Melanoma: No Hx Psoriasis: No Hx Squamous Cell Carcinoma: No - Musculoskeletal/Rheumatological Hx Musculoskeletal Disorders: No Hx Arthritis: No Hx Back Pain: No Hx Degenerative Joint Disease: No Hx Falls: No Hx Fractures: No Hx Gout: No Hx Herniated Disk: No Hx Myasthenia Gravis: No Hx Osteoarthritis: No Hx Osteomyelitis: No Hx Osteoporosis: No Hx Rhabdomyolysis: No Hx Spinal Stenosis: No Hx Unsteady Gait: No - Gastrointestinal Hx Gastrointestinal Disorders: No Hx Colostomy: No Hx Crohn's Disease: No Hx Diverticulitis: No Hx Gall Bladder Disease: No Hx Gastroesophageal Reflux: No Hx Ileostomy: No Hx Liver Failure: No Hx Pancreatitis: No HX Swallowing Problems: No - Genitourinary/Gynecological Hx Genitourinary Disorders: No Hx Hematuria: No Hx Incontinence: No Hx Prostate Problems: No Hx Sexually Transmitted Diseases: No Hx Urinary Tract Infection: No - Psychiatric Hx Substance Use: No - Surgical History Hx Cardiac Catheterization: No Hx Coronary Stent: No - Anesthesia Hx Anesthesia Reactions: No Hx Malignant Hyperthermia: No Family/Social History - Physician Review Nursing Documentation Reviewed: Yes Family/Social History: Unknown Family HX Smoking Status: Never Smoked Hx Alcohol Use: No Hx Substance Use: No Allergies/Home Meds Allergies/Adverse Reactions: Allergies No Known Allergies Allergy (Verified 07/01/17 22:54) Review of Systems - Physician Review All systems were reviewed & negative as marked: Yes - Review of Systems Constitutional: Normal. absent: Fatigue, Fevers, Night Sweats Eyes: Normal ENT: Normal Respiratory: Normal. absent: SOB Cardiovascular: Normal. absent: Chest Pain Gastrointestinal: Hematochezia. absent: Abdominal Pain, Vomiting (dark stool since today) Genitourinary Male: Normal Musculoskeletal: Normal Skin: Normal Neurological: Normal Endocrine: Normal Hemo/Lymphatic: Normal Psychiatric: Normal Physical Exam Vital Signs Reviewed: Yes Vital Signs Temp Pulse Resp BP Pulse Ox 07/09/17 13:03 97.9 F 65 16 138/77 98 07/09/17 12:34 97.9 F 65 16 138/77 98 Temperature: Afebrile Blood Pressure: Normal Pulse: Regular Respiratory Rate: Normal Appearance: Positive for: Non-Toxic, Comfortable, Other (pale appearing ) Pain Distress: None Mental Status: Positive for: Alert and Oriented X 3 - Systems Exam Head: Present: Atraumatic, Normocephalic Pupils: Present: PERRL Extroacular Muscles: Present: EOMI Conjunctiva: Present: Normal Mouth: Present: Moist Mucous Membranes Neck: Present: Normal Range of Motion Respiratory/Chest: Present: Clear to Auscultation, Good Air Exchange. No: Respiratory Distress, Accessory Muscle Use Cardiovascular: Present: Regular Rate and Rhythm, Normal S1, S2. No: Murmurs Abdomen: Present: Normal Bowel Sounds. No: Tenderness, Distention, Peritoneal Signs Rectal: Present: Other (dark stool) Back: Present: Normal Inspection Upper Extremity: Present: Normal Inspection. No: Cyanosis, Edema Lower Extremity: Present: Normal Inspection. No: Edema Neurological: Present: GCS=15, CN II-XII Intact, Speech Normal Skin: Present: Warm, Dry, Normal Color. No: Rashes Psychiatric: Present: Alert, Oriented x 3, Normal Insight, Normal Concentration Medical Decision Making ED Course and Treatment: 07/09/17 13:19 Impression: 52 year old male presents to the Emergency department complaining of blood in stool. Plan: --Blood type and screen -- EKG -- Labs -- Urinalysis -- Protonix -- IV Fluids -- Reassess and disposition Progress Notes: 07/09/17 14:25 Case discussed with the hospitalist, who is aware and agrees with the plan to admit the patient to Telemetry for blood in stool. 07/09/17 14:35 Reevaluation: On reevaluation the patient is stable. I have discussed the results and plan with the patient, who expresses understanding. Patient given the opportunity to ask question, all questions were answered and there is agreement with the plan to admit the patient to Telemetry under the hospitalist's service. - Lab Interpretations Lab Results: 07/09/17 13:30 07/09/17 13:30 Lab Results 07/09/17 13:30: Blood Type O POSITIVE, Antibody Screen Negative, BBK History Checked Patient has bt 07/09/17 13:30: Sodium 135, Potassium 4.3, Chloride 101, Carbon Dioxide 23, Anion Gap 15, BUN 34 H, Creatinine 3.7 H, Est GFR ( Amer) 21, Est GFR ( Non-Af Amer) 17, Random Glucose 122 H, Calcium 9.3, Magnesium 1.7, Total Bilirubin 0.3, AST 18, ALT 24, Alkaline Phosphatase 35 L, Lactate Dehydrogenase 320 L, Total Creatine Kinase 56, Troponin I < 0.01 D, Total Protein 6.1, Albumin 3.4, Globulin 2.7, Albumin/Globulin Ratio 1.3, Lipase 55 07/09/17 13:30: PT 12.4, INR 1.13 H, APTT 31.1 07/09/17 13:30: WBC 7.4, RBC 3.32 L, Hgb 9.9 L, Hct 30.4 L, MCV 91.6, MCH 29.8, MCHC 32.6, RDW 14.2, Plt Count 357, MPV 10.0, Gran % 73.7 H, Lymph % (Auto) 16.7 L, [place] % (Auto) 8.0 H, Eos % (Auto) 1.3 L, Baso % (Auto) 0.3, Gran # 5.46 , Lymph # 1.2, [place] # 0.6, Eos # 0.1, Baso # 0.02 I have reviewed the lab results: Yes - Medication Orders Current Medication Orders: Calcium Acetate (Phoslo) 667 mg PO WM PAM Fenofibrate (Tricor) 145 mg PO DAILY PAM Hydralazine HCl (Apresoline) 100 mg PO Q8 PAM Pantoprazole Sodium (Protonix 40mg Ivpb) 40 mg in 100 mls @ 20 mls/hr IVPB .Q5H PAM Stop: 07/09/17 18:29 Last Admin: 07/09/17 14:05 Dose: 20 mls/hr eMAR Start Stop Document 07/09/17 14:05 SRE (Rec: 07/09/17 14:05 SRE [email or web address] Intravenous Solution Start Date 07/09/17 Start Time 13:30 Sodium Chloride (Sodium Chloride 0.9%) 1,000 mls @ 100 mls/hr IV .Q10H PAM Insulin Human Regular (Humulin R High) 0 units SC ACHS PAM PRN Reason: Protocol Metoprolol Tartrate (Lopressor) 25 mg PO BRKDIN PAM Nifedipine (Procardia Xl) 90 mg PO DAILY PAM Pantoprazole Sodium (Protonix Inj) 40 mg IVP Q12 PAM Discontinued Medications Sodium Chloride (Sodium Chloride 0.9%) 1,000 mls @ 999 mls/hr IV .Q1H1M STA Stop: 07/09/17 14:19 Last Admin: 07/09/17 13:30 Dose: 999 mls/hr eMAR Start Stop Document 07/09/17 13:30 SRE (Rec: 07/09/17 14:05 SRE [email or web address]) Intravenous Solution Start Date 07/09/17 Start Time 13:30 End Date 07/09/17 End time 14:30 Total Infusion Time 60 Pantoprazole Sodium (Protonix Inj) 40 mg IVP STAT STA Stop: 07/09/17 13:19 Last Admin: 07/09/17 13:50 Dose: 40 mg IVP Administration Document 07/09/17 13:50 SRE (Rec: 07/09/17 14:04 SRE [email or web address] Charges for Administration # of IVP Administrations 1 Pneumococcal Polyvalent Vaccine (Pneumovax 23 Vaccine) 0.5 ml IM .ONCE ONE Stop: 07/09/17 16:18 - Scribe Statement The provider has reviewed the documentation as recorded by the Scribe Rick Romero All medical record entries made by the Scribe were at my direction and personally dictated by me. I have reviewed the chart and agree that the record accurately reflects my personal performance of the history, physical exam, medical decision making, and the department course for this patient. I have also personally directed, reviewed, and agree with the discharge instructions and disposition. Provider Attestation: Rick Romeor. All medical record entries made by the Scribe were at my direction and personally dictated by me. I have reviewed the chart and agree that the record accurately reflects my personal performance of the history, physical exam, medical decision making, and the department course for this patient. I have also personally directed, reviewed, and agree with the discharge instructions and disposition. Disposition/Present on Arrival - Present on Arrival Any Indicators Present on Arrival: No History of DVT/PE: No History of Uncontrolled Diabetes: No Urinary Catheter: No History of Decub. Ulcer: No History Surgical Site Infection Following: None - Disposition Have Diagnosis and Disposition been Completed?: Yes Diagnosis: GI bleed Disposition: HOSPITALIZED Disposition Time: 18:06 Condition: STABLE
[2017-07-09] MEDS ORDERED: Pantoprazole 40mg/100ml IVPB 40 MG/100 ML BAG IVPB SCH (13:30)
[2017-07-09 13:57] LABS: BASO # 0.02 K/mm3 (0.0-2.0); BASO % 0.3 % (0.0-3.0); EOS # 0.1 (0.0-0.7); EOS % 1.3 % (1.5-5.0); GRAN # 5.46 (1.4-6.5); GRAN % 73.7 % (50.0-68.0); HEMATOCRIT 30.4 % (42.0-52.0); LYMPH # 1.2 (1.2-3.4); LYMPH % 16.7 % (22.0-35.0); MEAN CELL VOLUME 91.6 fl (80.0-105.0); MEAN CORPUSCULAR HEMOGLOBIN 29.8 pg (25.0-35.0); MEAN CORPUSCULAR HGB CONC 32.6 g/dl (31.0-37.0); MONO # 0.6 (0.1-0.6); RED CELL DISTRIBUTION WIDTH 14.2 % (11.5-14.5); WHITE BLOOD COUNT 7.4 10^3/ul (4.5-11.0)
[2017-07-09 14:08] LABS: ALB/GLOB RATIO 1.3 (1.1-1.8); ALKALINE PHOSPHATASE 35 U/L (38-126); ALT/SGPT 24 U/L (7-56); AST/SGOT 18 U/L (17-59); BILIRUBIN,TOTAL 0.3 mg/dL (0.2-1.3); BLOOD UREA NITROGEN 34 mg/dL (7-21); CALCIUM 9.3 mg/dL (8.4-10.5); CARBON DIOXIDE 23 mmol/L (21-33); CHLORIDE 101 mmol/L (98-107); GFR AFRICAN-AMERICAN 21; GLUCOSE,RANDOM 122 mg/dL (70-110); LIPASE 55 U/L (23-300); MAGNESIUM 1.7 mg/dL (1.7-2.2); POTASSIUM 4.3 mmol/L (3.6-5.0); SODIUM 135 mmol/L (132-148); TOTAL PROTEIN 6.1 g/dL (5.8-8.3)
[2017-07-09 14:15] LABS: INR 1.13 (0.93-1.08); PARTIAL THROMBOPLASTIN TIME 31.1 Seconds (25.1-36.5)
[2017-07-09 14:23] LABS: TROPONIN I < 0.01 ng/mL
--- NOTE | 2017-07-09 15:35 | CP.PCM.HP ---
<Miladis Pierce - Last Filed: 07/09/17 15:24> History of Present Illness - History of Present Illness History of Present Illness: Miladis Pierce DO PGY1 - Internal Medicine History and Physical CC: Blood in stool HPI: 52 yo M with a PMH including diabetes, hypertension, gastroparesis, anemia , renal insufficiency, and was recently treated for GIB and duodenal ulcer with superficial vessel, who presents to the emergency department complaining of bloody bowel movements. He reports that last night, he had two soft formed bowel movements with small amounts of red blood in the bowl. He was discharged 2 days ago after being treated for duodenal ulcer with superficial vessel, treated with epinephrine injection, electrocoagulation, and hemostatic clipping. He remained in the hospital for two days after his procedure and his H &H remained stable through that duration. These were the first bowel movements he had after his discharge from the hospital. He denied light headedness, palpitations, headaches, chest pain, shortness of breath, syncope, fatigue, falls, abdominal pain, nausea, vomiting, diarrhea. He also denies melena, hemoptysis, hematemesis. He reports compliance with the instructions he was given regarding his diet, as well as compliance with all his medications. 12 point ROS was obtained and was negative except as in HPI. PMD: Dr. Des Young Past medical history: diabetes, hypertension, gastroparesis, anemia, PUD, and renal insufficiency Past surgical history: Recent EGD and sigmoidoscopy significant for duodenal ulcer with superficial vessel, treated with electrocautery and hemostatic clipping Allergies: NKDA Family Ht: mother hypertension Medications: please see MAR Social history: Occasional drinker, smoker (less than 1 a week). Occasional marijuana user. Denies any other illicit drug use. Present on Admission - Present on Admission Any Indicators Present on Admission: No Past Patient History - Infectious Disease Hx of Infectious Diseases: None - Past Social History Smoking Status: Never Smoked - CARDIAC Hx Hypertension: Yes - PULMONARY Hx Respiratory Disorders: No Hx Asthma: No Hx Bronchitis: No Hx Chronic Obstructive Pulmonary Disease (COPD): No Hx Emphysema: No Hx Pneumonia: No Hx Respiratory Aspiration: No Hx Respiratory Tract Infection: No Hx Sleep Apnea: No Hx Tuberculosis: No - NEUROLOGICAL Hx Neurological Disorder: No Hx Alzheimer's Disease: No HX Cerebrovascular Accident: No Hx Dementia: No Hx Dizziness: No Hx Meningitis: No Hx Migraine: No Hx Parkinson's Disease: No Hx Seizures: No Hx Transient Ischemic Attacks (TIA): No - HEENT Hx HEENT Problems: No Hx Blind: No Hx Cataracts: No Hx Deafness: No Hx Difficulty Chewing: No Hx Epistaxis: No Hx Glaucoma: No Hx Macular Degeneration: No - RENAL Hx Chronic Kidney Disease: Yes Hx Dialysis: No Hx Kidney Stones: No Hx Neurogenic Bladder: No Hx Pyelonephritis: No Hx Renal (Kidney) Cancer: No Hx Renal Failure: No - ENDOCRINE/METABOLIC Hx Diabetes Mellitus Type 2: Yes - HEMATOLOGICAL/ONCOLOGICAL Hx Blood Transfusions: Yes (PRESENTLY) Hx Blood Transfusion Reaction: No - INTEGUMENTARY Hx Dermatological Problems: No Hx Basil Cell: No Hx Eczema: No Hx Melanoma: No Hx Psoriasis: No Hx Squamous Cell: No - MUSCULOSKELETAL/RHEUMATOLOGICAL Hx Musculoskeletal Disorders: No Hx Arthritis: No Hx Back Pain: No Hx Degenerative Joint Disease: No Hx Falls: No Hx Fractures: No Hx Gout: No Hx Herniated Disk: No Hx Myasthenia Gravis: No Hx Osteoarthritis: No Hx Osteomyelitis: No Hx Osteoporosis: No Hx Rhabdomyolysis: No Hx Spinal Stenosis: No Hx Unsteady Gait: No - GASTROINTESTINAL Hx Gastrointestinal Disorders: No Hx Colostomy: No Hx Crohn's Disease: No Hx Diverticulitis: No Hx Gall Bladder Disease: No Hx Gastroesophageal Reflux: No Hx Ileostomy: No Hx Liver Failure: No Hx Pancreatitis: No HX Swallowing Problems: No - GENITOURINARY/GYNECOLOGICAL Hx Genitourinary Disorders: No Hx Hematuria: No Hx Incontinence: No Hx Prostate Problems: No Hx Sexually Transmitted Disorders: No Hx Urinary Tract Infection: No - PSYCHIATRIC Hx Substance Use: No - SURGICAL HISTORY Hx Cardiac Catheterization: No Hx Coronary Stent: No - ANESTHESIA Hx Anesthesia Reactions: No Hx Malignant Hyperthermia: No Meds Allergies/Adverse Reactions: Allergies Allergy/AdvReac Type Severity Reaction Status Date / Time No Known Allergies Allergy Verified 07/01/17 22:54 Physical Exam - Constitutional Appears: Non-toxic, No Acute Distress - Head Exam Head Exam: ATRAUMATIC, NORMOCEPHALIC - Eye Exam Eye Exam: EOMI, Normal appearance, PERRL Additional comments: No conjunctival pallor - ENT Exam ENT Exam: Mucous Membranes Moist, Normal Exam - Neck Exam Neck exam: Positive for: Normal Inspection - Respiratory Exam Respiratory Exam: Clear to Auscultation Bilateral, NORMAL BREATHING PATTERN - Cardiovascular Exam Cardiovascular Exam: RRR, +S1, +S2. absent: Tachycardia - GI/Abdominal Exam GI & Abdominal Exam: Normal Bowel Sounds, Soft. absent: Distended, Firm, Guarding, Rebound, Rigid, Tenderness - Rectal Exam Rectal Exam: Bloody Stool - Extremities Exam Extremities exam: Positive for: normal capillary refill. Negative for: calf tenderness, pedal edema - Neurological Exam Neurological exam: Alert, Oriented x3 - Psychiatric Exam Psychiatric exam: Normal Affect, Normal Mood - Skin Skin Exam: Dry, Intact, Normal Color Results - Vital Signs Recent Vital Signs: Last Vital Signs Temp 97.9 F 07/09/17 13:03 Pulse 65 07/09/17 13:03 Resp 16 07/09/17 13:03 BP 138/77 07/09/17 13:03 Pulse Ox 98 07/09/17 13:03 - Labs Result Diagrams: 07/09/17 13:30 07/09/17 13:30 Labs: Laboratory Results - last 24 hr 07/09/17 07/09/17 07/09/17 13:30 13:30 13:30 WBC 7.4 RBC 3.32 L Hgb 9.9 L Hct 30.4 L MCV 91.6 MCH 29.8 MCHC 32.6 RDW 14.2 Plt Count 357 MPV 10.0 Gran % 73.7 H Lymph % (Auto) 16.7 L [place] % (Auto) 8.0 H Eos % (Auto) 1.3 L Baso % (Auto) 0.3 Gran # 5.46 Lymph # 1.2 [place] # 0.6 Eos # 0.1 Baso # 0.02 PT 12.4 INR 1.13 H APTT 31.1 Sodium 135 Potassium 4.3 Chloride 101 Carbon Dioxide 23 Anion Gap 15 BUN 34 H Creatinine 3.7 H Est GFR ( Amer) 21 Est GFR (Non-Af Amer) 17 Random Glucose 122 H Calcium 9.3 Magnesium 1.7 Total Bilirubin 0.3 AST 18 ALT 24 Alkaline Phosphatase 35 L Lactate Dehydrogenase 320 L Total Creatine Kinase 56 Troponin I < 0.01 D Total Protein 6.1 Albumin 3.4 Globulin 2.7 Albumin/Globulin Ratio 1.3 Lipase 55 Blood Type Antibody Screen BBK History Checked 07/09/17 13:30 WBC RBC Hgb Hct MCV MCH MCHC RDW Plt Count MPV Gran % Lymph % (Auto) [place] % (Auto) Eos % (Auto) Baso % (Auto) Gran # Lymph # [place] # Eos # Baso # PT INR APTT Sodium Potassium Chloride Carbon Dioxide Anion Gap BUN Creatinine Est GFR ( Amer) Est GFR (Non-Af Amer) Random Glucose Calcium Magnesium Total Bilirubin AST ALT Alkaline Phosphatase Lactate Dehydrogenase Total Creatine Kinase Troponin I Total Protein Albumin Globulin Albumin/Globulin Ratio Lipase Blood Type O POSITIVE Antibody Screen Negative BBK History Checked Patient has bt Assessment & Plan - Assessment and Plan (Free Text) Assessment: Patient is a 52 year old male, whose past medical history includes diabetes, hypertension, gastroparesis, anemia, and renal insufficiency, recently treated for duodenal ulcer and GIB, now presents complaining of hematochezia. Plan GI Bleed - Patient is s/p EGD and Colonoscopy 07/05/17 where he was noted to have duodenal ulcer with large superficial vessel, treated with sclerotherapy and hemostatic clips; colonoscopy showed large amount of dark red blood in the colon - H&H currently stable compared to last labs at discharge; VSS - Considering current lack of signs and symptoms, patient unlikely to be having massive UGIB - Patient was started on Protonix drip in the ER; will switch to Protonix 40mg IV BID after one bag - NPO pending GI recs - Type and screen - IVF hydration, NS @100cc/hr - Admit to telemetry - GI consulted - appreciate recommendations JAYLENE on CKD - Patient's Cr elevated compared to prior level at discharge - Likely better than baseline while previously in the hospital 2/2 IVF hydration - Hydrate with IVF as above; recheck with AM labs Hx of HTN - Continue home regimen Hx of Diabetes - Hold oral hypoglycemics - Continue SSI Med - fingersticks ACHS Hx of Hyperlipidemia - Continue home fenofibrate Prophylaxis - DVT ppx - scds - GI ppx - protonix Patient seen, discussed, and reviewed with attending <Wicho Lim - Last Filed: 07/10/17 12:55> Results - Vital Signs Recent Vital Signs: Last Vital Signs Temp 97.9 F 07/10/17 12:00 Pulse 54 L 07/10/17 12:00 Resp 16 07/10/17 12:00 BP 145/80 07/10/17 12:00 Pulse Ox 100 07/10/17 06:00 - Labs Result Diagrams: 07/10/17 07:00 07/10/17 07:00 Labs: Laboratory Results - last 24 hr 07/09/17 07/09/17 07/10/17 16:21 21:38 07:00 WBC 6.6 RBC 3.20 L Hgb 9.6 L Hct 29.3 L MCV 91.6 MCH 30.0 MCHC 32.8 RDW 14.1 Plt Count 354 MPV 10.6 Gran % 63.6 Lymph % (Auto) 23.5 [place] % (Auto) 10.6 H Eos % (Auto) 1.8 Baso % (Auto) 0.5 Gran # 4.22 Lymph # 1.6 [place] # 0.7 H Eos # 0.1 Baso # 0.03 Sodium Potassium Chloride Carbon Dioxide Anion Gap BUN Creatinine Est GFR ( Amer) Est GFR (Non-Af Amer) POC Glucose (mg/dL) 91 206 H Random Glucose Calcium Phosphorus Magnesium Total Bilirubin AST ALT Alkaline Phosphatase Total Protein Albumin Globulin Albumin/Globulin Ratio 07/10/17 07/10/17 07/10/17 07:00 07:32 11:10 WBC RBC Hgb Hct MCV MCH MCHC RDW Plt Count MPV Gran % Lymph % (Auto) [place] % (Auto) Eos % (Auto) Baso % (Auto) Gran # Lymph # [place] # Eos # Baso # Sodium 136 Potassium 4.2 Chloride 105 Carbon Dioxide 23 Anion Gap 12 BUN 29 H Creatinine 3.4 H Est GFR ( Amer) 23 Est GFR (Non-Af Amer) 19 POC Glucose (mg/dL) 70 92 Random Glucose 75 Calcium 8.8 Phosphorus 3.4 Magnesium 1.7 Total Bilirubin 0.1 L AST 16 L ALT 27 Alkaline Phosphatase 33 L Total Protein 5.3 L Albumin 2.8 L Globulin 2.5 Albumin/Globulin Ratio 1.1 Attending/Attestation - Attestation I have personally seen and examined this patient.: Yes I have fully participated in the care of the patient.: Yes I have reviewed all pertinent clinical information: Yes Notes (Text): 07/10/17 12:50 Patient was seen and examined with biomedical equipment tech. 52 year old male with past medical history of hypertension, diabetes and CKD who was recently admitted for admitted for symptomatic anemia, hemoglobin of 4.0. Patient underwent EGD and Colonoscopy.EGD showed duodenal ulcer with visible vessel and active bleeding.Patient had clipping and cauterization of bleeding vessel, Patient remain stable after EGD and was discharged home on PPI.He is readmitted with H/O GI bleeding.Hemoglobin is stable.There is no active bleeding.We will monitor Hemoglobin and will get GI evaluation. Acute on chronic renal failure, we will hydrate and monitorBUN and creatinin. Management plan was discussed in detail with patient Education was provided.
[2017-07-09] MEDS ORDERED: Influenza Vaccine 60 mcg/0.5 mL SYR (4YR UP) IM ONE (16:17)
[2017-07-09] MEDS ORDERED: Pneumococcal 23-Valent Vaccine IM ONE (16:17)
[2017-07-09] MEDS: Insulin Reg-HIGH-Coverage SC SCH ×2 (16:30→21:41)
--- NOTE | 2017-07-09 18:14 | CARD ---
APPROVED REPORT EKG Measurement Heart [id number] <Conclusion> Sinus bradycardia Otherwise normal ECG
[2017-07-09] MEDS: Sodium Chloride 0.9% 1,000 ML IV SCH (19:11)
[2017-07-10] MEDS: Sodium Chloride 0.9% 1,000 ML IV SCH (05:18)
[2017-07-10 06:02] VITALS: O2SAT 100
[2017-07-10 07:21] LABS: BASO # 0.03 K/mm3 (0.0-2.0); BASO % 0.5 % (0.0-3.0); EOS # 0.1 (0.0-0.7); EOS % 1.8 % (1.5-5.0); GRAN # 4.22 (1.4-6.5); GRAN % 63.6 % (50.0-68.0); HEMATOCRIT 29.3 % (42.0-52.0); LYMPH # 1.6 (1.2-3.4); LYMPH % 23.5 % (22.0-35.0); MEAN CELL VOLUME 91.6 fl (80.0-105.0); MEAN CORPUSCULAR HGB CONC 32.8 g/dl (31.0-37.0); MEAN PLATELET VOLUME 10.6 fl (7.0-11.0); MONO # 0.7 (0.1-0.6); MONO % 10.6 % (1.0-6.0); RED CELL DISTRIBUTION WIDTH 14.1 % (11.5-14.5); WHITE BLOOD COUNT 6.6 10^3/ul (4.5-11.0)
[2017-07-10] MEDS: Insulin Reg-HIGH-Coverage SC SCH ×2 (07:33→11:30)
[2017-07-10 07:46] LABS: BILIRUBIN,TOTAL 0.1 mg/dL (0.2-1.3); CALCIUM 8.8 mg/dL (8.4-10.5); MAGNESIUM 1.7 mg/dL (1.7-2.2); PHOSPHOROUS 3.4 mg/dL (2.5-4.5); POTASSIUM 4.2 mmol/L (3.6-5.0); TOTAL PROTEIN 5.3 g/dL (5.8-8.3)
[2017-07-10 08:24] LABS: ALB/GLOB RATIO 1.1 (1.1-1.8)
[2017-07-10] MEDS ORDERED: NIFEdipine 90 mg ER Tab PO SCH (10:00)
[2017-07-10 12:35] VITALS: PULSE 54; RESP 16; TEMP 97.9
[2017-07-10 13:22] VITALS: BP 136/78
--- NOTE | 2017-07-10 14:38 | CP.PCM.DIS ---
<Dayday Santana - Last Filed: 07/12/17 04:03> Provider - Provider Date of Admission: 07/09/17 14:27 Attending physician: Sarah Beth Rodriguez MD Primary care physician: Bobby Young MD Consults: Dr. Lucio Time Spent in preparation of Discharge (in minutes): 35 Hospital Course - Lab Results Lab Results: Most Recent Lab Values WBC 6.6 10^3/ul (4.5-11.0) 07/10/17 07:00 RBC 3.20 10^6/uL (3.5-6.1) L 07/10/17 07:00 Hgb 9.6 g/dL (14.0-18.0) L 07/10/17 07:00 Hct 29.3 % (42.0-52.0) L 07/10/17 07:00 MCV 91.6 fl (80.0-105.0) 07/10/17 07:00 MCH 30.0 pg (25.0-35.0) 07/10/17 07:00 MCHC 32.8 g/dl (31.0-37.0) 07/10/17 07:00 RDW 14.1 % (11.5-14.5) 07/10/17 07:00 Plt Count 354 10^3/uL (120.0-450.0) 07/10/17 07:00 MPV 10.6 fl (7.0-11.0) 07/10/17 07:00 Gran % 63.6 % (50.0-68.0) 07/10/17 07:00 Lymph % (Auto) 23.5 % (22.0-35.0) 07/10/17 07:00 [place] % (Auto) 10.6 % (1.0-6.0) H 07/10/17 07:00 Eos % (Auto) 1.8 % (1.5-5.0) 07/10/17 07:00 Baso % (Auto) 0.5 % (0.0-3.0) 07/10/17 07:00 Gran # 4.22 (1.4-6.5) 07/10/17 07:00 Lymph # 1.6 (1.2-3.4) 07/10/17 07:00 [place] # 0.7 (0.1-0.6) H 07/10/17 07:00 Eos # 0.1 (0.0-0.7) 07/10/17 07:00 Baso # 0.03 K/mm3 (0.0-2.0) 07/10/17 07:00 PT 12.4 SECONDS (9.4-12.5) 07/09/17 13:30 INR 1.13 (0.93-1.08) H 07/09/17 13:30 APTT 31.1 Seconds (25.1-36.5) 07/09/17 13:30 Sodium 136 mmol/L (132-148) 07/10/17 07:00 Potassium 4.2 mmol/L (3.6-5.0) 07/10/17 07:00 Chloride 105 mmol/L (98-107) 07/10/17 07:00 Carbon Dioxide 23 mmol/L (21-33) 07/10/17 07:00 Anion Gap 12 (10-20) 07/10/17 07:00 BUN 29 mg/dL (7-21) H 07/10/17 07:00 Creatinine 3.4 mg/dl (0.8-1.5) H 07/10/17 07:00 Est GFR ( Amer) 23 07/10/17 07:00 Est GFR (Non-Af Amer) 19 07/10/17 07:00 POC Glucose (mg/dL) 92 mg/dL (65-110) 07/10/17 11:10 Random Glucose 75 mg/dL (70-110) 07/10/17 07:00 Calcium 8.8 mg/dL (8.4-10.5) 07/10/17 07:00 Phosphorus 3.4 mg/dL (2.5-4.5) 07/10/17 07:00 Magnesium 1.7 mg/dL (1.7-2.2) 07/10/17 07:00 Total Bilirubin 0.1 mg/dL (0.2-1.3) L 07/10/17 07:00 AST 16 U/L (17-59) L 07/10/17 07:00 ALT 27 U/L (7-56) 07/10/17 07:00 Alkaline Phosphatase 33 U/L (38-126) L 07/10/17 07:00 Lactate Dehydrogenase 320 U/L (333-699) L 07/09/17 13:30 Total Creatine Kinase 56 U/L (35-230) 07/09/17 13:30 Troponin I < 0.01 ng/mL D 07/09/17 13:30 Total Protein 5.3 g/dL (5.8-8.3) L 07/10/17 07:00 Albumin 2.8 g/dL (3.0-4.8) L 07/10/17 07:00 Globulin 2.5 gm/dL 07/10/17 07:00 Albumin/Globulin Ratio 1.1 (1.1-1.8) 07/10/17 07:00 Lipase 55 U/L (23-300) 07/09/17 13:30 Blood Type O POSITIVE 07/09/17 13:30 Antibody Screen Negative 07/09/17 13:30 BBK History Checked Patient has bt 07/09/17 13:30 - Hospital Course Hospital Course: 52 yo M with a PMH including diabetes, hypertension, gastroparesis, anemia, renal insufficiency, and was recently treated for GIB and duodenal ulcer with superficial vessel, who presents to the emergency department complaining of bloody bowel movements. He reports that last night, he had two soft formed bowel movements with small amounts of red blood in the bowl. He was discharged 2 days ago after being treated for duodenal ulcer with superficial vessel, treated with epinephrine injection, electrocoagulation, and hemostatic clipping. He remained in the hospital for two days after his procedure and his H &H remained stable through that duration. These were the first bowel movements he had after his discharge from the hospital. He denied light headedness, palpitations, headaches, chest pain, shortness of breath, syncope, fatigue, falls, abdominal pain, nausea, vomiting, diarrhea. He also denies melena, hemoptysis, hematemesis. He reports compliance with the instructions he was given regarding his diet, as well as compliance with all his medications. He was observed in the hospital and had a stable H&H, his diet was advanced as tolerated, and he was monitored closely on telemetry. Throughout his hospital stay he remained hemodynamically stable and there was no evidence of blood loss. He was discharged with the same diet discharge instructions of 1. Continue eating a pureed diet for the next ten days, then a soft diet for two more weeks; avoid eating hard, crunchy, or chewy things 2. Avoid all NSAIDS (ibuprofen, naproxen, meloxicam, diclofenac, aspirin, etc) indefinitely 3. Continue taking the protonix 40mg once daily, 30-60 minutes before your first meal of the day 4. Start taking Nifedipine 90mg once daily, in addition to your old metoprolol and hydralazine. Discontinue other blood pressure medications you may be taking at home 5. Continue taking your insulin as prescribed 6. Start taking phoslo, three times daily with meals 7. Follow up with your primary care doctor within one week, to discuss all the new changes 8. Follow up with Dr. Lucio in 2-3 weeks, regarding CT imaging findings, GI bleed, and repeat endoscopy planning 9. Follow up with Dr. Garza as indicated, for continued monitoring of your renal function 10. If you see any black, tarry stools, blood in your stool, or if you start vomiting blood, contact your PCP immediately or return to the ER 11. For any new or worsening concerns, contact your PCP immediately or return to the ER - Date & Time of H&P Date of H&P: 07/10/17 Time of H&P: 15:20 Discharge Exam - Head Exam Head Exam: ATRAUMATIC, NORMOCEPHALIC - Eye Exam Eye Exam: EOMI, Normal appearance Pupil Exam: NORMAL ACCOMODATION - ENT Exam ENT Exam: Mucous Membranes Moist, Normal Oropharynx - Neck Exam Neck exam: Normal Inspection - Respiratory Exam Respiratory Exam: Clear to PA & Lateral, NORMAL BREATHING PATTERN - Cardiovascular Exam Cardiovascular Exam: RRR, +S1, +S2 - GI/Abdominal Exam GI & Abdominal Exam: Normal Bowel Sounds, Unremarkable - Extremities Exam Extremities exam: normal inspection - Back Exam Back exam: NORMAL INSPECTION. absent: CVA tenderness (L), CVA tenderness (R) - Neurological Exam Neurological exam: Alert, CN II-XII Intact, Oriented x3 - Psychiatric Exam Psychiatric exam: Normal Affect, Normal Mood - Skin Skin Exam: Dry, Intact, Normal Color, Warm Discharge Plan - Discharge Medications Prescriptions: Ergocalciferol [Drisdol 50,000 Intl Units Cap] 1 cap PO Q7D #4 cap Fenofibrate Nanocrystallized [Tricor] 145 mg PO DAILY #30 tablet hydrALAZINE [Apresoline] 100 mg PO Q8 #90 tab Insulin Glargine,Hum.rec.anlog [Lantus Solostar] 10 unit SQ HS #3 insuln.pen Metoprolol Tartrate [Lopressor] 25 mg PO BID #60 tab Pioglitazone [Actos] 30 mg PO DAILY #30 tab - Follow Up Plan Condition: STABLE Disposition: HOME/ ROUTINE Instructions: Gastrointestinal Bleeding (DC) Additional Instructions: 1. Continue eating a pureed diet for the next ten days, then a soft diet for two more weeks; avoid eating hard, crunchy, or chewy things 2. Avoid all NSAIDS (ibuprofen, naproxen, meloxicam, diclofenac, aspirin, etc) indefinitely 3. Continue taking the protonix 40mg once daily, 30-60 minutes before your first meal of the day 4. Start taking Nifedipine 90mg once daily, in addition to your old metoprolol and hydralazine. Discontinue other blood pressure medications you may be taking at home 5. Continue taking your insulin as prescribed 6. Start taking phoslo, three times daily with meals 7. Follow up with your primary care doctor within one week, to discuss all the new changes 8. Follow up with Dr. Lucio in 2-3 weeks, regarding CT imaging findings, GI bleed, and repeat endoscopy planning 9. Follow up with Dr. Garza as indicated, for continued monitoring of your renal function 10. If you see any black, tarry stools, blood in your stool, or if you start vomiting blood, contact your PCP immediately or return to the ER 11. For any new or worsening concerns, contact your PCP immediately or return to the ER. Nursing See care note for further instructions. Referrals: Bobby Young MD [Primary Care Provider] - <Wicho Lim - Last Filed: 07/12/17 16:35> Provider - Provider Date of Admission: 07/09/17 14:27 Attending physician: Sarah Beth Rodriguez MD Primary care physician: Bobby Young MD Hospital Course - Lab Results Lab Results: Most Recent Lab Values WBC 6.6 10^3/ul (4.5-11.0) 07/10/17 07:00 RBC 3.20 10^6/uL (3.5-6.1) L 07/10/17 07:00 Hgb 9.6 g/dL (14.0-18.0) L 07/10/17 07:00 Hct 29.3 % (42.0-52.0) L 07/10/17 07:00 MCV 91.6 fl (80.0-105.0) 07/10/17 07:00 MCH 30.0 pg (25.0-35.0) 07/10/17 07:00 MCHC 32.8 g/dl (31.0-37.0) 07/10/17 07:00 RDW 14.1 % (11.5-14.5) 07/10/17 07:00 Plt Count 354 10^3/uL (120.0-450.0) 07/10/17 07:00 MPV 10.6 fl (7.0-11.0) 07/10/17 07:00 Gran % 63.6 % (50.0-68.0) 07/10/17 07:00 Lymph % (Auto) 23.5 % (22.0-35.0) 07/10/17 07:00 [place] % (Auto) 10.6 % (1.0-6.0) H 07/10/17 07:00 Eos % (Auto) 1.8 % (1.5-5.0) 07/10/17 07:00 Baso % (Auto) 0.5 % (0.0-3.0) 07/10/17 07:00 Gran # 4.22 (1.4-6.5) 07/10/17 07:00 Lymph # 1.6 (1.2-3.4) 07/10/17 07:00 [place] # 0.7 (0.1-0.6) H 07/10/17 07:00 Eos # 0.1 (0.0-0.7) 07/10/17 07:00 Baso # 0.03 K/mm3 (0.0-2.0) 07/10/17 07:00 PT 12.4 SECONDS (9.4-12.5) 07/09/17 13:30 INR 1.13 (0.93-1.08) H 07/09/17 13:30 APTT 31.1 Seconds (25.1-36.5) 07/09/17 13:30 Sodium 136 mmol/L (132-148) 07/10/17 07:00 Potassium 4.2 mmol/L (3.6-5.0) 07/10/17 07:00 Chloride 105 mmol/L (98-107) 07/10/17 07:00 Carbon Dioxide 23 mmol/L (21-33) 07/10/17 07:00 Anion Gap 12 (10-20) 07/10/17 07:00 BUN 29 mg/dL (7-21) H 07/10/17 07:00 Creatinine 3.4 mg/dl (0.8-1.5) H 07/10/17 07:00 Est GFR ( Amer) 23 07/10/17 07:00 Est GFR (Non-Af Amer) 19 07/10/17 07:00 POC Glucose (mg/dL) 92 mg/dL (65-110) 07/10/17 11:10 Random Glucose 75 mg/dL (70-110) 07/10/17 07:00 Calcium 8.8 mg/dL (8.4-10.5) 07/10/17 07:00 Phosphorus 3.4 mg/dL (2.5-4.5) 07/10/17 07:00 Magnesium 1.7 mg/dL (1.7-2.2) 07/10/17 07:00 Total Bilirubin 0.1 mg/dL (0.2-1.3) L 07/10/17 07:00 AST 16 U/L (17-59) L 07/10/17 07:00 ALT 27 U/L (7-56) 07/10/17 07:00 Alkaline Phosphatase 33 U/L (38-126) L 07/10/17 07:00 Lactate Dehydrogenase 320 U/L (333-699) L 07/09/17 13:30 Total Creatine Kinase 56 U/L (35-230) 07/09/17 13:30 Troponin I < 0.01 ng/mL D 07/09/17 13:30 Total Protein 5.3 g/dL (5.8-8.3) L 07/10/17 07:00 Albumin 2.8 g/dL (3.0-4.8) L 07/10/17 07:00 Globulin 2.5 gm/dL 07/10/17 07:00 Albumin/Globulin Ratio 1.1 (1.1-1.8) 07/10/17 07:00 Lipase 55 U/L (23-300) 07/09/17 13:30 Blood Type O POSITIVE 07/09/17 13:30 Antibody Screen Negative 07/09/17 13:30 BBK History Checked Patient has bt 07/09/17 13:30 Attending/Attestation - Attestation I have personally seen and examined this patient.: Yes I have fully participated in the care of the patient.: Yes I have reviewed all pertinent clinical information, including history, physical exam and plan: Yes Notes (Text): 07/12/17 16:33 Patient was seen and examined with medical services coordinator. 52 year old male with past medical history of hypertension, diabetes and CKD who was recently admitted for admitted for symptomatic anemia, hemoglobin of 4.0. Patient underwent EGD and Colonoscopy.EGD showed duodenal ulcer with visible vessel and active bleeding.Patient had clipping and cauterization of bleeding vessel, Patient remain stable after EGD and was discharged home on PPI.He was readmitted with H/O GI bleeding.Hemoglobin remain stable .There is no active bleeding.Patient was evaluated by GI.He is tolerating diet.He is ambulatory.He will be discharged home and will follow up with PCP and GI Management plan was discussed in detail with patient Education was provided.
== END 2017-07-10 15:00 | disposition home health service (06) ==
LOC: ED 12:31 → ERH 14:27 → INTOOBSV 14:27 → 2RSO 16:07
PROVIDERS: ADMIT Internal Medicine; ATTEND Internal Medicine
DX: K26.4 Chronic or unspecified duodenal ulcer with hemorrhage (principal); E11.22 Type 2 diabetes mellitus with diabetic chronic kidney disease; E11.43 Type 2 diabetes mellitus with diabetic autonomic (poly)neuropathy; I12.9 Hypertensive chronic kidney disease with stage 1 through stage 4 chronic kidney disease, or unspecified chronic kidney disease; N18.9 Chronic kidney disease, unspecified; K31.84 Gastroparesis; F12.90 Cannabis use, unspecified, uncomplicated; F17.200 Nicotine dependence, unspecified, uncomplicated
CPT/HCPCS: 36415; 80053; 82550; 82948; 83615; 83690; 83735; 84100; 84484; 85025; 85610; 85730; 86850; 86900; 93005; 96361; 96374; 99282; C9113; G0378; J7040

== ENCOUNTER 2017-10-26 08:18 | Day surgery (SDC) | payer OTHER ==
[2017-10-15 08:56] VITALS: BMI 29.8
[2017-10-26] MEDS ORDERED: Propofol 10 mg/ml Inj (20 ML) ONE ×2 (08:44→11:16)
[2017-10-26] MEDS ORDERED: Sodium Chloride 0.9% 1,000 ML IV SCH (10:15)
[2017-10-26 14:31] VITALS: BP 179/77; PULSE 65; RESP 18; TEMP 97.4; O2SAT 98
== END 2017-10-26 14:23 | disposition home or self-care (01) ==
LOC: ENDO 08:18
PROVIDERS: ATTEND Internal Medicine Gastroenterology
DX: D12.3 Benign neoplasm of transverse colon (principal); K57.30 Diverticulosis of large intestine without perforation or abscess without bleeding; K29.50 Unspecified chronic gastritis without bleeding; K27.7 Chronic peptic ulcer, site unspecified, without hemorrhage or perforation; K64.8 Other hemorrhoids; D50.9 Iron deficiency anemia, unspecified; I12.9 Hypertensive chronic kidney disease with stage 1 through stage 4 chronic kidney disease, or unspecified chronic kidney disease; E11.22 Type 2 diabetes mellitus with diabetic chronic kidney disease; N18.9 Chronic kidney disease, unspecified; Z79.4 Long term (current) use of insulin
CPT/HCPCS: 43239; 45385; 88305; 88312; 88342; J2001; J2704; J7040 ×2